=== PATIENT | male | born 1950 | race Caucasian/White ===

== ENCOUNTER 2020-06-26 20:52 | Emergency (ER) | payer MEDICARE, OTHER ==
[~2020-06-26] VITALS: Ht 175.3 cm; Wt 86.2 kg
--- OUTSIDE RECORDS SUMMARY | ~2020-06-26 | XMS | Encounter Summary ---
Demographics + + + | Address | [address] | | | [place] [address] | + + + | Home Phone | | + + + | Preferred Language | Unknown | + + + | Marital Status | | + + + | Muslim Affiliation | Unknown | + + + | Race | Unknown | + + + | Ethnic Group | Unknown | + + + Author + + + | Author | [facility] | | | and [place] | + + + | Organization | [facility] | | | and [place] | + + + | Address | Unknown | + + + | Phone | Unavailable | + + + Support + + + + + | Name | Relationship | Address | Phone | + + + + + | Mark Escobar | [place] | [address] | | | | | [place] | | | | | [address] | | + + + + + Care Team Providers + +------+ + | Care Tip Finisher Name | Role | Phone | + +------+ + | Maria C Cordova MD | PCP | | + +------+ + Reason for Visit + +--------+ + | Reason | Onset | Comments | | | Date | | + +--------+ + | Follow-up | 04/22/ | Needs 3 month f/u visit | | | 2020 | | + +--------+ + Encounter Details +--------+ + + + + | Date | Type | Department | Care Team | Description | +--------+ + + + + | 04/22/ | Telephone | [facility] | Yunier Maria | Follow-up (Needs 3 | | 2019 | | GASTROENTEROLOGY | MD Dougie [address] | month f/u visit) | | | | [address] | [place], [place] | | | | | [place], [place] | [address] | | | | | [address] | | | | | | [phone] | | | +--------+ + + + + Social History + +-------+ +--------+------+ | Tobacco Use | Types | Packs/Day | Years | Date | | | | | Used | | + +-------+ +--------+------+ | Never Smoker | | | | | + +-------+ +--------+------+ + +---+---+---+ | Smokeless Tobacco: | | | | | Never Used | | | | + +---+---+---+ + + +---------+ + | Alcohol Use | Drinks/Week | oz/Week | Comments | + + +---------+ + | Yes | 14 Cans of beer 0 | 14.0 | | | | Standard drinks or | | | | | equivalent | | | + + +---------+ + + + + | Sex Assigned at | Date Recorded | | | | + + + | Not on file | | + + + documented as of this encounter Miscellaneous Notes Telephone Encounter - Gus Jacob Dermatologist And Dermatopathologist - 04/22/2020 4:[address] Maria 04/20/2020, to f/u in 3 moths with SENIOR CARE MANAGER. Called patient, he states he would prefer to hold off on scheduling at this time. He state s Dr. Maria and him discussed that a f/u appt might not be needed. Patient will call us if wants to schedule at later time. documented in this encounter Plan of Treatment +--------+ + + + + | Date | Type | Specialty | Care Team | Description | +--------+ + + + + | 08/09/ | Office | Cardiology | Joseph Claire | | 2019 | Visit | | [address] | | | | | | [address] | | | | | | [place] [address] | | | | | | [phone] | | | | | | | | +--------+ + + + + | 08/09/ | Procedure | Cardiology | | | 2019 | visit | | | | +--------+ + + + + | 10/19/ | Office | Cardiology | Trevor Godinez, | | | 2019 | Visit | | MD [address] | | | | | | [place] | | | | | | [address] | | | | | | | | +--------+ + + + + documented as of this encounter Visit Diagnoses Not on filedocumented in this encounter"
--- OUTSIDE RECORDS SUMMARY | ~2020-06-26 | XMS | Encounter Summary ---
Demographics + + + | Address | [address] | | | [place] [address] | + + + | Home Phone | | + + + | Preferred Language | Unknown | + + + | Marital Status | | + + + | Evangelical Affiliation | Unknown | + + + | Race | Unknown | + + + | Ethnic Group | Other Race | + + + Author + + + | Author | [facility] | + + + | Organization | [facility] | + + + | Address | Unknown | + + + | Phone | Unavailable | + + + Care Team Providers + +------+ + | Care Aerospace Mechanic Name | Role | Phone | + +------+ + PCP | Unavailable | + +------+ + Encounter Details +--------+ + + + + | Date | Type | Department | Care Team | Description | +--------+ + + + + | 03/10/ | Results | [facility] | Jessica, | | | 2010 | Only | Department | MD Messi Thomason | | | | | | Oscar Kwan | | | | | | [address] | | | | | | [address] | | | | | | [place], [place] | | | | | | [address] | | | | | | | | +--------+ + + + + Social History + +-------+ +--------+------+ | Tobacco Use | Types | Packs/Day | Years | Date | | | | | Used | | + +-------+ +--------+------+ | Never Assessed | | | | | + +-------+ +--------+------+ + + + | Sex Assigned at | Date Recorded | | | | + + + | Not on file | | + + + + + + + | Job Start Date | Occupation | Industry | + + + + | Not on file | Not on file | Not on file | + + + + + + + + | Travel History | Travel Start | Travel End | + + + + + + | No recent travel history available. | + + documented as of this encounter Plan of Treatment Not on filedocumented as of this encounter Procedures + +--------+ + + + | Procedure Name | Priori | Date/Time | Associated Diagnosis | Comments | | | ty | | | | + +--------+ + + + | DERMATOPATHOLOGY(WET | Routin | 03/10/2011 | | Results for this | | [facility]) | e | | | procedure are in the | | | | | | results section. | + +--------+ + + + documented in this encounter Results DERMATOPATHOLOGY(WET [facility]) (03/10/2011) + + + + + + | Component | Value | Ref Range | Performed | Pathologist | | | | | At | Signature | + + + + + + | DERMATOPATH | SOURCE OF SPECIMEN:A | | [facility] | | | OLOGY(WET | FIRST TISSUE LEVEL IV | | DERMATOPATH | | | [facility]) | [address] CLIN[facility] | | OLOGY | | | | DESCRIPTION:Punch, 4 mm, | | | | | | lt. mid back; R/O | | | | | | atypia/ malignancy. | | | | | | GROSS DESCRIPTION:Lt. | | | | | | mid back. The | | | | | | specimen is received in | | | | | | formalin, labeled back | | | | | | with thepatient's name | | | | | | and consists of a pale | | | | | | fofana and brown punch | | | | | | biopsy, measuring0.4 x | | | | | | 0.4 cm, which is | | | | | | bisected and is | | | | | | submitted entirely in | | | | | | one cassette. | | | | | | MICROSCOPIC | | | | | | DESCRIPTION:There is | | | | | | epidermal hyperplasia | | | | | | with horn pseudocysts, | | | | | | interweaving of therete | | | | | | and nuclei of uniform | | | | | | size and shape. 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 NOTE: | | | | | | There is no definitive | | | | | | evidence of a | | | | | | melanocytic neoplasm in | | | | | | thesesections. | | | | | | VK/CRW:emr/02/20 | | | | | | Case reviewed | | | | | | by:Raman Odonnell, | | | | | | M.Faustino, Dermatopathology | | | | | | Fellow Sarah Kerr | | | | | | Jr. Kilpatrick M.D., | | | | | | Dermatopathologist | | | | | | My electronic signature | | | | | | indicates that I have | | | | | | personally reviewed | | | | | | alldiagnostic slides, | | | | | | the gross and/or | | | | | | microscopic portion of | | | | | | thisreport and | | | | | | formulated the final | | | | | | diagnosis. | | | | | | Rendering Diagnostician: | | | | | | Jordan Kilpatrick Jr., | | | | | | | | | | | | Darryn | | | | | | rehana Izquierdo 03/16/2011 | | | | | | 1:46PM | | | | + + + + + + + + | Specimen | + + | | + + + + + + + | Performing | Address | City/State/Zipcode | Phone Number | | Organization | | | | + + + + + | [facility] | [address] | [place] [address] | | | DERMATKESHA | [address] | | | + + + + + | [facility] | [address] | [place] [address] | | | DERMATOPATHOLOGY | [address] | | | + + + + + documented in this encounter Visit Diagnoses Not on filedocumented in this encounter"
--- OUTSIDE RECORDS SUMMARY | ~2020-06-26 | XMS | Encounter Summary ---
Demographics + + + | Address | [address] | | | [place] [address] | + + + | Home Phone | | + + + | Preferred Language | Unknown | + + + | Marital Status | | + + + | Faith Affiliation | Unknown | + + + | Race | Unknown | + + + | Ethnic Group | Unknown | + + + Author + + + | Author | [facility] | | | and [place] | + + + | Organization | [facility] | | | and [place] | + + + | Address | Unknown | + + + | Phone | Unavailable | + + + Support + + + + + | Name | Relationship | Address | Phone | + + + + + | Mark Escobar | [place] | [address] | | | | | [place] | | | | | [address] | | + + + + + Care Team Providers + +------+ + | Care Welder Production Line Arc Name | Role | Phone | + +------+ + | Maria C Cordova MD | PCP | | + +------+ + Reason for Visit + +--------+ + | Reason | Onset | Comments | | | Date | | + +--------+ + | Pacemaker Problem | 06/20/ | | | | 2020 | | + +--------+ + Encounter Details +--------+ + + + + | Date | Type | Department | Care Team | Description | +--------+ + + + + | 06/20/ | Telephone | [facility] | Franko Savage, | Pacemaker Problem | | 2019 | | CARDIOLOGY [place] | [address] | | | | | [address] | [facility], | | | | | [place], [place] | [place] [address] | | | | | [address] | [phone] | | | | | [phone] | | | +--------+ + + + [...] + + +---------+ + | Yes | 0 Standard drinks | 14.0 | | | | or equivalent 14 | | | | | Cans of beer | | | + + +---------+ + + + + | Sex Assigned at | Date Recorded | | | | + + + | Not on file | | + + + documented as of this encounter Miscellaneous Notes Telephone Encounter - Franko Savage MD - 06/20/2020 5:40 PM PDTI called and talked to this patient in detail over the phone regarding the procedural risks and benefits. All ques tions were answered. He has chlorhexidine and will take a shower tonight as directed montserrat gaviria. He will present tomorrow at 1130, n.p.o. after midnight tonight. He is active and [place] without difficulty. He has had prior stress test which [address] been normal. His dad suddenly of what sounds like a cardiac arrest at age 68.Elect ronically signed by Franko Savage MD at 06/20/2020 5:42 PM PDTdocumented in this encount er Plan of Treatment +--------+ + + + + | Date | Type | Specialty | Care Team | Description | +--------+ + + + + | 08/09/ | Office | Cardiology | Joseph Claire | | 2019 | Visit | | [address] | | | | | | [address] | | | | | | [place] [address] | | | | | | [phone] | | | | | | | [...] [place] | | | | | | [address] | | | | | | | | +--------+ + + + + documented as of this encounter Visit Diagnoses Not on filedocumented in this encounter"
--- OUTSIDE RECORDS SUMMARY | ~2020-06-26 | XMS | Encounter Summary ---
Demographics + + + | Address | [address] | | | [place] [address] | + + + | Home Phone | | + + + | Preferred Language | Unknown | + + + | Marital Status | | + + + | Rastafarian Affiliation | Unknown | + + + | Race | Unknown | + + + | Ethnic Group | Other Race | + + + Author + + + | Author | [facility] | + + + | Organization | [facility] | + + + | Address | Unknown | + + + | Phone | Unavailable | + + + Care Team Providers + +------+ + | Care Sticker Operator Name | Role | Phone | + [...] [address] | | | | | | [place], [place] | | | | | | [id number] | | | | | | | [...] | DERMATOPATH | | | MNT) | [address] CLINICAL | | OLOGY | | | [...] [facility] | [address] | [place] [address] | | | DERMAT[place]HA | [address] | | | + + + + + | [facility] | [address] | [place] [address] | | | DERMATOPATHOLOGY | [address] | | | + + + + + documented in this encounter Visit Diagnoses Not on filedocumented in this encounter"
--- OUTSIDE RECORDS SUMMARY | ~2020-06-26 | XMS | Encounter Summary ---
Demographics + + + | Address | [address] | | | [place] [address] | + + + | Home Phone | | + + + | Preferred Language | Unknown | + + + | Marital Status | | + + + | Muslim Affiliation | Unknown | + + + | Race | Unknown | + + + | Ethnic Group | Unknown | + + + Author + + + | Author | [facility] | | | and [place] | + + + | Organization | [facility] | | | and [place] | + + + | Address | Unknown | + + + | Phone | Unavailable | + + + Support + + + + + | Name | Relationship | Address | Phone | + + + + + | Mark Escobar | [place] | [address] | | | | | [place] | | | | | [address] | | + + + + + Care Team Providers + +------+ + | Care Payroll Associate Name | Role | Phone | + +------+ + | Tello Rodarte MD | PCP | | + +------+ + Reason for Visit +--------+--------+ + | Reason | Onset | Comments | | | Date | | +--------+--------+ + | Pain | 01/12/ | Increase in pain | | | 2016 | | +--------+--------+ + Encounter Details +--------+ + + + + | Date | Type | Department | Care Team | Description | +--------+ + + + + | 01/12/ | Telephone | [facility] | Geovani Hendrickson MD | Pain (Increase in | | 2017 | | NEUROSURGERY [address] | [address] | pain) | | | | [address] | [place] [address] | | | | | [place] | [phone] | | | | | [address] | | | | | | [phone] | | | +--------+ + + + [...] | Yes | 0 Standard drinks | 0.0 | Frequently (more | | | or equivalent | | than twice per week) | + + +---------+ + + + + | Sex Assigned at | Date Recorded | | | | + + + | Not on file | | + + + documented as of this encounter Miscellaneous Notes Telephone Encounter - Rimma Payton - 01/16/2017 3:46 PM PSTPatient's called stat ed they will be seeing their Provider for re-evaluation. elephone Encounter - Lisa Jim RN - 01/16/2017 11:3 1 AM PSTLeft detailed message advising patient and spouse per note below and requested retur n call to confirm if patient plans to see PCP for re-evaluation or if he would like to sched ule an appointment with one of our PA's (Wolfgang or Tyshawn). elephone Encounter - Joseph Ling PA-C - 01/16 10:03 AM PSTThe patient will need to have a repeat evaluation. He may need to have a repeat MRI. I would recommend that he either begin this process of reevaluation through his primary care provider or our office, it may be quicker to be seen by his primary care provi gary but we would also be happy to see him. Either Tyshawn or Ej can see this patient in follow up elephone En counter - Abby Ybarra RN - 01/12/2017 9:24 AM PSTPost-op patient: "No Type of Procedure: N/A Date of Procedure: N/A Next Office Visit: None Reason for call: Increase in pain. Patient's spouse states that he has "reagrivated his [facility]. Now it is so bad, he can barely stand" Would like to make an appointment for follow up. Type of pain: ConstantSharp stabbing Location of Pain: Low back and right leg Pain Level: 9/10. Unable to stand. New Pain: No. When did pain start to increase or change: A week ago Worse with activity: Yes. Radiates into buttock and or legs: Yes. Side: Right. Sudden onset of loss of bowel/bladder control: No. Sudden onset of Lower or Upper extremity weakness: No Current intake of pain medication/or muscle relaxants: No Please advise further. documented in this en counter Plan of Treatment +--------+ + + + + | Date | Type | Specialty | Care Team | Description | +--------+ + + + + | 08/09/ | Office | Cardiology | Joseph Claire | | | 2019 | Visit | | [address] | | | | | | [address] | | | | | | [place] [address] | | | | | | [phone] | | | | | | | | +--------+ + + + + | 08/09/ | Procedure | Cardiology | | | | 2019 | visit | | | | +--------+ + + + + | 10/19/ | Office | Cardiology | Trevor Godinez, | | | 2019 | Visit | | MD [address] | | | | | | [place] | | | | | | [address] | | | | | | | | +--------+ + + + + documented as of this encounter Visit Diagnoses Not on filedocumented in this encounter
--- OUTSIDE RECORDS SUMMARY | ~2020-06-26 | XMS | Encounter Summary ---
Demographics + + + | Address | [address] | | | [place] [address] | + + + | Home Phone | | + + + | Preferred Language | Unknown | + + + | Marital Status | | + + + | Roman Catholic Affiliation | Unknown | + + + | Race | Unknown | + + + | Ethnic Group | Unknown | + + + Author + + + | Author | [facility] | | | and [place] | + + + | Organization | [facility] | | | and [place] | + + + | Address | Unknown | + + + | Phone | Unavailable | + + + Support + + + + + | Name | Relationship | Address | Phone | + + + + + | Mark Escobar | HANY | [address] | | | | | [place] | | | | | [address] | | + + + + + Care Team Providers + +------+ + | Care Asset Analyst Name | Role | Phone | + +------+ + | Maria C Cordova MD | PCP | | + +------+ + Reason for Visit + + + | Reason | Comments | + + + | Dysphagia | | + + + Evaluate & Treat (Routine) +--------+--------+ + + + + | Status | Reason | Specialty | Diagnoses / | Referred By | Referred To | | | | | Procedures | Contact | Contact | +--------+--------+ + + + + | Closed | | Gastroenterol | Diagnoses | Cordova, | Crow, | | | | oganil | Dysphagia, | Maria C Jacobson MD | Yunier Constantino, | | | | | unspecified | [address] | [address] | | | | | | [address] | [address] | | | | | | [place], | [place], [place] | | | | | | [place] [address] | [address] Phone: | | | | | | Phone: | [phone] | | | | | | [phone] | Fax: | | | | | | Fax: | [phone] | | | | | | [phone] | | +--------+--------+ + + + + Encounter Details +--------+ + + + + | Date | Type | Department | Care Team | Description | +--------+ + + + + | 04/20/ | Virtual | [facility] | Yunier Maria | Vasovagal syncope | | 2020 | Office | GASTROENTEROLOGY | MD Douige [address] | (Primary Dx); Other | | | Visit | [address] | [address]VD [place], [place] | dysphagia; Sensation | | | | [place], [place] | [address] | of chest pressure; | | | | [address] | | Gastroesophageal | | | | [phone] | | reflux disease, | | | | | | esophagitis presence | | | | | | not specified; | | | | | | Weight loss | +--------+ + + + + Social [...] + + documented as of this encounter Progress Notes Yunier Maria MD - 04/20/2020 4:10 PM PDT [facility] Gastroenterology Virtual Visit New Patient This exam was initially conducted via a secure 256-bit AES encrypted bidirectional video se ssion. Service was provided [id number] with the patient via interactive videoconferencing Coding will be based on Medical Decision Making. You have chosen to receive care through the use of telemedicine. Telemedicine enables [facility] care providers at different locations to provide safe, effective and convenient care throu gh the use of technology. As with any health care service, there are risks associated with t he use of telemedicine, including equipment failure, poor image resolution and information s ecurity issues. Do you understand the risks and benefits of telemedicine as I have explained them to you? " Yes" Have your questions regarding telemedicine been answered? "Yes" Participant is currently at home Do you consent to the use of telemedicine in your medical care today? Yes. Last question, I need to confirm where are you physically located right now? [place], [place] Answer: Patient confirms they are located in a state where I, Yunier Maria MD am licens ed. Subjective: Chief Complaint Patient presents with Dysphagia Patient ID: Thomas Escobar is a 70 y.o. male. HPI New patient evaluation via virtual visit regarding symptom described as syncope occurring w hile eating. Patient actually describes 4 episodes. First episode he experienced was about 1-1/2 years ago while sitting on a plane where he had an episode of unconsciousness noted b y his . Individuals on the plane had to assist with him. Apparently blood pressure was suspected to have been running low. Claims he thinks that he had not been eating or drinki ng much at that time. There was no prolonged confusion described by his . This episode did not occur with any oral ingestion. He subsequently had 2 other episodes which occurred a few months ago and were in time. One was stopping to eat lunch while driving b [employer] from [place] where he ate a hamburger and suddenly had what he refers to as syncope. H e recalls having a fullness or pressure in his chest though not really food becoming stuck. He remembers his suddenly in his face asking him if he was okay and whether to call am anna. This occurred while sitting and he did not fall on the table or fall out of the ch air. Does not sound like his head even fell to one side. He does not recall the episode an d just his asking him how he was. Second episode was very similar and occurred at home when eating. He had one last episode occurring at a later time not time associated to eati ng but he had a pressure-like sensation again occurring alone and he slowed down his breathi ng and it seemed to subside without any loss of consciousness. His present at the visi t as well. There was no prolonged disorientation, difficulty with speech or drooling or any neurologic symptoms such as weakness described. None of these episodes did he fall. 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 He does not normally have any trouble with food sticking with swall owing. He has been on omeprazole for quite a number years for reflux. Really no significan t reflux breakthrough symptoms. Not been having any abdominal pain. Typically does not hav e any difficulty with eating. He underwent video esophagram in his local area which showed a tiny hiatal hernia and just minimal reflux otherwise nothing of concern and normal motilit y was described. Specifically no diverticulum evident. He had echocardiogram and cardiac m onitor which were unrevealing. 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 As an aside he also comments about 30 to 40 pound weight loss over the last 3 to 4 years wh ich was unintentional. Has not experienced any bowel habit changes or blood in stool. Last underwent colonoscopy about 15 years ago which reportedly was unremarkable. No other speci fic symptoms. Patient's medications, allergies, past medical, surgical, social and family histories were obtained and reviewed as appropriate. Allergies: Allergies Allergen Reactions Lisinopril Cough Medications: Current Outpatient Medications Medication Sig Dispense Refill amLODIPine (NORVASC) 5 mg tablet Take 5 mg by mouth Daily. atenolol (TENORMIN) 25 mg tablet Take 1 tablet by mouth Daily. atorvaSTATin (LIPITOR) 40 mg tablet Take 40 mg by mouth nightly. levothyroxine (SYNTHROID, LEVOTHROID) 50 mcg tablet Take 50 mcg by mouth every morning (before breakfast). losartan (COZAAR) 100 MG tablet Take 100 mg by mouth Daily. omeprazole (PRILOSEC) 20 mg capsule Take 20 mg by mouth every morning (before breakfast ). tadalafil (CIALIS) 20 MG tablet Take 20 mg by mouth as needed for Erectile Dysfunction. No current facility-administered medications for this visit. Past Medical History: Diagnosis Date Anxiety and depression Benign localized prostatic hyperplasia with lower urinary tract symptoms (LUTS) Cholelithiasis Colon, diverticulosis Depression with anxiety Disorder of thyroid Dyspepsia Esophageal reflux Essential hypertension HLD (hyperlipidemia) Hyperlipidemia Hypertension Hypothyroidism, iatrogenic Impaired fasting glucose Low back pain Migraine headache Nephrolithiasis Osteoarthrosis involving lower leg Presbycusis Past Surgical History: Procedure Laterality Date CHOLECYSTECTOMY 01/23/[address] Partida in [place], [place] KNEE JOINT REPLACEMENT Left 06/2007 LITHOTRIPSY 1994 OTHER SURGICAL HISTORY LITHOTRIPSY THYROIDECTOMY, PARTIAL Right benign THYROIDECTOMY, PARTIAL TONSILLECTOMY AND ADENOIDECTOMY TOTAL KNEE ARTHROPLASTY Left 2006 UPPER GASTROINTESTINAL ENDOSCOPY 2014? possibly Dr. Gabby Bueno in [place], [place] Family History Problem Relation Age of Onset Heart disease Father Heart disease Mother 55 CABG Cancer Mother No known problems Paternal Grandfather No known problems Paternal Grandmother No known problems Maternal Grandfather No known problems Maternal Grandmother Heart attack Brother 49 Cancer Sister 40 Cancer Sister 40 No known problems Child Chronic infections Sister Heart disease Brother 52 PCI Colon cancer Neg Hx Colon polyps Neg Hx Social History Socioeconomic History Marital status: Spouse name: Not on file Number of children: 4 Years of education: 19 Highest education level: Not on file Occupational History Occupation: [employer] Social Needs Financial resource strain: Not on file Food insecurity Worry: Not on file Inability: Not on file Transportation needs Medical: Not on file Non-medical: Not on file Tobacco Use Smoking status: Never Smoker Smokeless tobacco: Never Used Substance and Sexual Activity Alcohol use: Yes Alcohol/week: 14.0 standard drinks Types: 14 Cans of beer per week Drug use: Yes Types: Marijuana Comment: Edibles for sleep Sexual activity: Yes Lifestyle Physical activity Days per week: Not on file Minutes per session: Not on file Stress: Not on file Relationships Social connections Talks on phone: Not on file Gets together: Not on file Attends christian service: Not on file Active member of club or organization: Not on file Attends meetings of clubs or organizations: Not on file Relationship status: Not on file Intimate partner violence Fear of current or ex partner: Not on file Emotionally abused: Not on file Physically abused: Not on file Forced sexual activity: Not on file Other Topics Concern Not on file Social History Narrative Not on file Social History Tobacco Use Smoking Status Never Smoker Smokeless Tobacco Never Used Social History Substance and Sexual Activity Alcohol Use Yes Alcohol/week: 14.0 standard drinks Types: 14 Cans of beer per week Social History Substance and Sexual Activity Drug Use Yes Types: Marijuana Comment: Edibles for sleep Social History Substance and Sexual Activity Sexual Activity Yes Review of Systems Constitutional: Negative for fatigue and unexpected weight change. Respiratory: Negative for cough, choking, chest tightness, shortness of breath and wheezing . Cardiovascular: Negative for chest pain and palpitations. Gastrointestinal: Positive for constipation and diarrhea (took stool softener). Negative fo r abdominal distention, abdominal pain, anal bleeding, blood in stool, nausea, rectal pain a nd vomiting. C/o occ heartburn Objective: There were no vitals taken for this visit. Physical Exam Telemedicine Virtual Visit General Cooperative Alert Well groomed Well appearing Resp Respiratory effort appears normal Neuro Oriented x3 Alert Psych Normal speech Normal Cognition Thought content normal Normal judgement Labs: In the referral notes BMP normal from February 2020 no other labs available Diagnostic imaging: Esophagram as per HPI found in the referral notes Data Review: Reviewed recent pertinent notes in electronic chart Assessment and Plan: ICD-10-CM ICD-9-CM 1. Vasovagal syncope R55 780.2 2. Other dysphagia R13.19 787.29 3. Sensation of chest pressure R07.89 786.59 4. Gastroesophageal reflux disease, esophagitis presence not specified K21.9 530.81 5. Weight loss R63.4 783.21 His symptoms as described today very vague and nonspecific. Really describing more a lapse of awareness of brief seconds than true syncope since he never fell or apparently even had his head fall over while sitting. Not true dysphagia described and evaluation for esophagea l spasm would be low yield I think in this setting. Clearly may have had a vasovagal phenom enon though he is less clear on presyncopal type symptoms. TIA would be a concern but there really was no prolonged symptoms. Atypical seizure likewise unlikely with no residual or d isorientation. He is being evaluated by cardiology for dysrhythmia or prolonged rhythm bloc k which could cause transient symptoms. Recommendations 1. Continue with cardiology evaluation as doing. 2. Suggested starting low-dose aspirin on the off chance this could be atypical TIA. 3. If develops any other neurologic type symptoms consider neurology evaluation and/or hea d imaging. 4. Could consider EGD and esophageal manometry at some point but for now we will hold off until we see how symptoms do over the next few months. Patient will call if symptoms worsen . 5. In regards to the unexplained weight loss over a prolonged period of time less specific . May want to consider colonoscopy since last exam 15 years ago. 6. Follow-up visit in about 3 months. Maryana Maria IV, M.D. [facility] Gastroenterology 04/20/2020 This note was dictated using [employer] voice recognition software. Document was reviewed at ti me of dictation but [id number] errors may be present. Please call with any questions or c larifications. documented in thi s encounter Plan of Treatment +--------+ + + + + | Date | Type | Specialty | Care Team | Description | +--------+ + + + + | 08/09/ | Office | Cardiology | Joseph Claire | | 2019 | Visit | | MIRELLA [address] | | | | | [address] | | | | | | [place] [address] | | | | | | [phone] | | | | | | | | +--------+ + + + + | 08/09/ | Procedure | Cardiology | | | 2019 | visit | | | | +--------+ + + + + | 10/19/ | Office | Cardiology | Trevor Godinez, | | | 2020 | Visit | | MD [address] | | | | | | [facility] | | | | | | [address] | | | | | | | | +--------+ + + + + documented as of this encounter Visit Diagnoses + + | Diagnosis | + + | Vasovagal syncope - Primary Syncope and collapse | + + | Other dysphagia | + + | Sensation of chest pressure | + + | Gastroesophageal reflux disease, esophagitis presence not specified | + + | Weight loss Loss of weight | + + documented in this encounter
--- OUTSIDE RECORDS SUMMARY | ~2020-06-26 | XMS | Encounter Summary ---
Demographics + + + | Address | [address] | | | [place] [address] | + + + | Home Phone | | + + + | Preferred Language | Unknown | + + + | Marital Status | | + + + | Hindu Affiliation | Unknown | + + + | Race | Unknown | + + + | Ethnic Group | Unknown | + + + Author + + + | Author | [facility] | | | and [place] | + + + | Organization | [facility] | | | and [place] | + + + | Address | Unknown | + + + | Phone | Unavailable | + + + Support + + + + + | Name | Relationship | Address | Phone | + + + + + | Mark Escobar | [place] | [address] | | | | | [place] | | | | | [address] | | + + + + + Care Team Providers + +------+ + | Care Trauma Nurse Name | Role | Phone | + +------+ + | Maria C Cordova MD | PCP | | + +------+ + Reason for Visit +--------+ + | Reason | Comments | +--------+ + | Other | urgent report | +--------+ + Encounter Details +--------+ + + + + | Date | Type | Department | Care Team | Description | +--------+ + + + + | 04/26/ | Documentati | [facility] | Linda Delarosa Eliza, | Other (urgent | | 2020 | on | CARDIOLOGY [place] | Technologist | report) | | | | [address] | | | | | | [place] | | | | | | [address] | | | | | | [phone] | | | +--------+ + + + [...] documented as of this encounter Progress Notes Linda Delarosa, Technologist - 04/26/2020 7:52 AM PDTReceived urgent report 04/26/20 Pt had a urgent report 04/25/20 at 18:33 63 BPM activity none for possible Pause 3.4 s > 3 s 30 day monitor was placed 04/22/20 Medication: None Called PT Left vm Will continue to monitor Please see attachment Associated attestation - Trevor Godinez MD - 04/26/2020 12:41 PM PDTReviewed patient wi ll be instructed to stop atenolol. Will continue monitoring. documented in this encounter Plan of Treatment [...] | | | | | [place] [address] | | | | | | [phone] | | | | | | | | +--------+ + + + + | 08/09/ | Procedure | Cardiology | | | | 2019 | visit | | | | +--------+ + + + + | 10/19/ | Office | Cardiology | Trevor Godinez, | | | 2019 | Visit | | [address] | | | | | | [place] | | | | | | [address] | | | | | | | | +--------+ + + + + documented as of this encounter Visit Diagnoses Not on filedocumented in this encounter"
--- OUTSIDE RECORDS SUMMARY | ~2020-06-26 | XMS | Encounter Summary ---
Demographics + + + | Address | [address] | | | [place] [address] | + + + | Home Phone | | + + + | Preferred Language | Unknown | + + + | Marital Status | | + + + | Yazidi Affiliation | Unknown | + + + | Race | Unknown | + + + | Ethnic Group | Unknown | + + + Author + + + | Author | [facility] | | | and [place] | + + + | Organization | [facility] | | | and [place] | + + + | Address | Unknown | + + + | Phone | Unavailable | + + + Support + + + + + | Name | Relationship | Address | Phone | + + + + + | Mark Escobar | [place] | [address] | | | | | [place] | | | | | [address] | | + + + + + Care Team Providers + +------+ + | Care Land Leases And Rentals Manager Name | Role | Phone | + +------+ + | Maria C Cordova MD | PCP | | + +------+ + Reason for Visit +--------+--------+ + | Reason | Onset | Comments | | | Date | | +--------+--------+ + | Pre-Op | 06/17/ | | | | 2020 | | +--------+--------+ + Encounter Details +--------+ + + + + | Date | Type | Department | Care Team | Description | +--------+ + + + + | 06/17/ | Telephone | [facility] | Franko Savage, | Pre-Op | | 2020 | | CENTER [facility] OP | [address] | | | | | [address] | [place], | | | | | [place], [place] | [place] [address] | | | | | [address] | [phone] | | | | | [phone] | | | +--------+ + + + [...] this encounter Miscellaneous Notes Telephone Encounter - Carie Peng - 06/17/2020 3:24 PM PDTSpoke with patient regarding pre op instructions. Asked all COVID-19 scheduling questions. All answers were no. Electronic ally signed by Carie Peng at 06/17/2020 3:26 PM PDTdocumented in this encounter Plan of Treatment +--------+ [...] | | | | | [place] [address] | | | | | | [phone] | | | | | | | [...] [place] | | | | | | [address] | | | | | | | | +--------+ + + + + documented as of this encounter Visit Diagnoses Not on filedocumented in this encounter"
--- OUTSIDE RECORDS SUMMARY | ~2020-06-26 | XMS | Encounter Summary ---
Demographics + + + | Address | [address] | | | [place] [address] | + + + | Home Phone | | + + + | Preferred Language | Unknown | + + + | Marital Status | | + + + | Druze Affiliation | Unknown | + + + | Race | Unknown | + + + | Ethnic Group | Unknown | + + + Author + + + | Author | [facility] | | | and [place] | + + + | Organization | [facility] | | | and [place] | + + + | Address | Unknown | + + + | Phone | Unavailable | + + + Support + + + + + | Name | Relationship | Address | Phone | + + + + + | Mark Escobar | H[place] | [address] | | | | | [place] | | | | | [address] | | + + + + + Care Team Providers + +------+ + | Care Glue Jointer Operator Name | Role | Phone | + +------+ + | Tello Rodarte MD | PCP | | + +------+ + Reason for Visit +--------+--------+ + | Reason | Onset | Comments | | | Date | | +--------+--------+ + | Other | 04/12/ | scheduling | | | 2020 | | +--------+--------+ + Encounter Details +--------+ + + + + | Date | Type | Department | Care Team | Description | +--------+ + + + + | 04/12/ | Telephone | [facility] | Trevor Godinez, | Other (scheduling) | | 2020 | | CARDIOLOGY [place] | [address] | | | | | [address] | [place], [place] | | | | | [place], [place] | [address] | | | | | [address] | | | | | | [phone] | | | +--------+ + + + [...] | 0 Standard drinks | 0.0 | Alcoholic | | | or equivalent | | Drinks/day: socially | + + +---------+ + + + + | Sex Assigned at | Date Recorded | | | | + + + | Not on file | | + + + documented as of this encounter Miscellaneous Notes Telephone Encounter - Chanell Degroot - 04/12/2020 11:42 AM PDTProactive screening for u pcoming office visit to help ensure the clinic environment remains a safe place to receive c are. 1. Patient reports the following symptoms and/or exposure on the epidemic risk screen: ? Fever greater than 100.4 F?: no ? New onset (within the last 14 days) cough?: no ? New onset (within the last 14 days) shortness of breath?: no ? New onset (within the last 14 days) loss of taste or smell?: no ? Close contact with someone who has been diagnosed with COVID-19?: no The patient reported no symptoms or exposure and proceeded with proactive screening process . 2. Have you or someone you are in close contact with been tested for COVID-19?: No. Okay to see patient in clinic per scheduling guidelines, proceeded to question #3 3. Does the patient have MyChart Access?: Yes. Encouraged use of the E-Check In feature. 4. Is the patient allowed a visitor per policy?: No. Please be aware that you will be asked these same questions when you arrive at the clinic. If you have any changes in your symptoms between now and your visit, please call us so we c an get you scheduled for an alternative visit before you arrive at the clinic. For your safety and the safety of others, we ask that if you are being seen in person at on e of our clinics you arrive wearing a mask. Hand washing is canseco to keeping our clinic a safe place to receive care. While you are in ou r clinics you will be asked to perform hand washing at different intervals throughout your v isit. While you are in the clinic 6ft distancing is required, please ensure you look for the 6ft floor markers and adhere to distancing. Visitor restrictions remain in place following CDC guidance. Only minimal exceptions will be allowed. If you arrive with a visitor they may be asked to wait in the car during your v isit. documented in this enc ounter Plan of Treatment +--------+ + + + + | Date | Type | Specialty | Care Team | Description | +--------+ + + + + | 08/09/ | Office | Cardiology | Joseph Claire | | | 2019 | Visit | | MIRELLA [address] | | | | | | [address] | | | | | | [place] [address] | | | | | | [phone] | | | | | | | [...] [place] | | | | | | [address] | | | | | | | | +--------+ + + + + documented as of this encounter Visit Diagnoses Not on filedocumented in this encounter"
--- OUTSIDE RECORDS SUMMARY | ~2020-06-26 | XMS | Encounter Summary ---
Demographics + + + | Address | [address] | | | [place] [address] | + + + | Home Phone | | + + + | Preferred Language | Unknown | + + + | Marital Status | | + + + | Confucianist Affiliation | Unknown | + + + | Race | Unknown | + + + | Ethnic Group | Unknown | + + + Author + + + | Author | [facility] | | | and [place] | + + + | Organization | [facility] | | | and [place] | + + + | Address | Unknown | + + + | Phone | Unavailable | + + + Support + + + + + | Name | Relationship | Address | Phone | + + + + + | Mark Escobar | HANY | [address] | | | | | [place] | | | | | [address] | | + + + + + Care Team Providers + +------+ + | Care Mold Maker Helper Name | Role | Phone | + +------+ + | Tello Rodarte MD | PCP | | + +------+ + Encounter Details +--------+ + + + + | Date | Type | Department | Care Team | Description | +--------+ + + + + | 01/19/ | Orders Only | [facility] | Geovani Hendrickson MD | Back pain, | | 2016 | | NEUROSURGERY [address] | [address] | unspecified back | | | | [address] | [place] [address] | pain laterality, | | | | [place], [place] | [phone] | unspecified location | | | | [address] | | (Primary Dx) | | | | [phone] | | | +--------+ + + + [...] as of this encounter Plan of Treatment +--------+ + + + + | Date | Type | Specialty | Care Team | Description | +--------+ + + + + | 08/09/ | Office | Cardiology | Joseph Claire | | | 2020 | Visit | | [address]LL[address] | | | | | | [address] | | | | | | [place] [address] | | | | | | [phone] | | | | | | | | +--------+ + + + + | 08/09/ | Procedure | Cardiology | | | | 2019 | visit | | | | +--------+ + + + + | 10/19/ | Office | Cardiology | Trevor Godinez, | | | 2020 | Visit | | MD [address] | | | | | | [place] | | | | | | [address] | | | | | | | | +--------+ + + + + documented as of this encounter Results XR Lumbar Spine 4 + Vw (04/20/2016 8:57 AM PDT) + + | Specimen | + + | | + + + + + | Narrative | Performed At | + + + | EXAM: XR LUMBAR SPINE 4 + VW dated 04/20/2016 8:29 AM HISTORY:Back | [facility] | | Pain COMPARISON: Outside MRI dated December 01, 2015. | [facility] | | FINDINGS:Mild leftward curvature. These may be positional. There | [facility] | | are 5 nonrib-bearing lumbar-type vertebral bodies. In the neutral | - IMAGING | | position there is slight retrolisthesis of L4 and anterolisthesis of | | | L5. No significant disc space narrowing. There are marginal | | | osteophytes through the thoracolumbar junction. There are no | | | compression deformities. There is normal mineralization. There is | | | facet arthrosis at L4-L5 and L5-S1. No abnormal translation with | | | flexion or extension. IMPRESSION - Diffuse mild spondylosis. | | | Very slight spondylolisthesis of L4 and L5. Dictated and Signed | | | by: Bartolo Riley MD Electronically signed: 04/20/2016 11:38 AM | | | | | + + + + + | Procedure Note | + + | Richard, Rad Results In - 04/20/2016 11:41 AM PDT EXAM: XR LUMBAR SPINE 4 + VW dated | | 04/20/2016 8:29 AMHISTORY:Back PainCOMPARISON: Outside MRI dated December 01 | | 2015.FINDINGS:Mild leftward curvature. These may be positional. There are | | 5nonrib-bearing lumbar-type vertebral bodies. In the neutral position there isslight | | retrolisthesis of L4 and anterolisthesis of L5. No significant discspace narrowing. | | There are marginal osteophytes through the thoracolumbarjunction. There are no | | compression deformities. There is normalmineralization. There is facet arthrosis at | | L4-L5 and L5-S1. No abnormaltranslation with flexion or extension.IMPRESSION -Diffuse | | mild spondylosis.Very slight spondylolisthesis of L4 and L5.Dictated and Signed by: | | Bartolo Riley MD Electronically signed: 04/20/2016 11:38 AM | |junction. There are no compression deformities. There is normal | |mineralization. There is facet arthrosis at L4-L5 and L5-S1. No abnormal | |translation with flexion or extension. | | | |IMPRESSION - | | | |Diffuse mild spondylosis. | | | |Very slight spondylolisthesis of L4 and L5. | | | |Dictated and Signed by: Bartolo Riley MD | | Electronically signed: 04/20/2016 11:38 AM | + + + + + + + | Performing | Address | City/State/Zipcode | Phone Number | | Organization | | | | + + + + + | [facility] | [address] | [place] | [phone] | | [facility] | | [address] | | | - IMAGING | | | | + + + + + documented in this encounter Visit Diagnoses + + | Diagnosis | + + | Back pain, unspecified back pain laterality, unspecified location - Primary | + + documented in this encounter"
--- OUTSIDE RECORDS SUMMARY | ~2020-06-26 | XMS | Encounter Summary ---
Demographics + + + | Address | [address] | | | [place] [address] | + + + | Home Phone | | + + + | Preferred Language | Unknown | + + + | Marital Status | | + + + | Sabianist Affiliation | Unknown | + + + | Race | Unknown | + + + | Ethnic Group | Unknown | + + + Author + + + | Author | [facility] | | | and [place] | + + + | Organization | [facility] | | | and [place] | + + + | Address | Unknown | + + + | Phone | Unavailable | + + + Support + + + + + | Name | Relationship | Address | Phone | + + + + + | Mark Escobar | [place] | [address] | | | | | [place] | | | | | [address] | | + + + + + Care Team Providers + +------+ + | Care Signal Supervisor Name | Role | Phone | + +------+ + | Maria C Cordova MD | PCP | | + +------+ + Reason for Visit + + + | Reason | Comments | + + + | Follow-up | 3 month | + + + Encounter Details +--------+---------+ + + + | Date | Type | Department | Care Team | Description | +--------+---------+ + + + | 06/15/ | Office | [facility] | Trevor Mcdonnell, | Essential | | 2020 | Visit | CARDIOLOGY [place] | [address] | hypertension | | | | [address] | [place], [place] | (Primary Dx); | | | | [facility] [place] | [address] | Vasovagal syncope | | | | [address] | | | | | | [phone] | | | +--------+---------+ + + + Social History + +-------+ [...] + + documented as of this encounter Last Filed Vital Signs + + + + + | Vital Sign | Reading | Time Taken | Comments | + + + + + | Blood Pressure | 122/80 | 06/15/2020 11:48 AM | | | | | PDT | | + + + + + | Pulse | 56 | 06/15/2020 11:48 AM | | | | | PDT | | + + + + + | Temperature | 36.7 C (98 F) | 06/15/2020 11:48 AM | | | | | PDT | | + + + + + | Respiratory Rate | - | - | | + + + + + | Oxygen Saturation | 98% | 06/15/2020 11:48 AM | | | | | PDT | | + + + + + | Inhaled Oxygen | - | - | | | Concentration | | | | + + + + + | Weight | 82.6 kg (182 lb) | 06/15/2020 11:48 AM | | | | | PDT | | + + + + + | Height | 177.8 cm (5' 10") | 06/15/2020 11:48 AM | | | | | PDT | | + + + + + | Body Mass Index | 26.11 | 06/15/2020 11:48 AM | | | | | PDT | | + + + + + documented in this encounter Progress Notes Trevor Mcdonnell MD - 06/15/2020 11:45 AM PDTFormatting of this note might be different f rom the original. Date of visit: 06/15/2020 Primary Care Physician: Maria C Cordova MD CHIEF COMPLAINT: Chief Complaint Patient presents with Follow-up 3 month HISTORY OF PRESENT ILLNESS: Thomas is 70 y.o. here for First episode patient was in a plane with his before takeoff he started feeling nauseo us, after that was noted to be unconscious by his . Apparently there were few doctors a t the time that evaluated him on board of the plane. Patient continued his usual day withou t any further events. Another episode happened few months ago 2019 when he was driving back from the airport in [facility], he stopped to have lunch while eating a burger he had a brief few seconds syncopal episode. The third episode happened as well while eating dinner at home with his again for a few seconds. The fourth and the final time happened without complete loss of conscio usness, patient felt chest discomfort he knew his symptoms he started breathing slow and it passed without syncope. Seen earlier in 2017 secondary to essential hypertension at that time. Noted to be bradyca rdic back then atenolol dosage was decreased. Has been active otherwise. Lately has been having some mild tiredness and fatigue. 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 Past medical history, SH, FH, and medications were reviewed in the chart. Medications: Outpatient Encounter Medications as of 06/15/2020 Medication Sig Dispense Refill amLODIPine (NORVASC) 5 mg tablet Take 5 mg by mouth Daily. atenolol (TENORMIN) 25 mg tablet Take 1 tablet by mouth Daily. (Patient not taking: Rep orted on 06/15/2020.) atorvaSTATin (LIPITOR) 40 mg tablet Take 40 [...] mouth as needed for Erectile Dysfunction. No facility-administered encounter medications on file as of 06/15/2020. Allergies Allergies Allergen Reactions Lisinopril Cough REVIEW OF SYSTEMS: Constitutional: negative for fatigue. No fever, chills, and rigors. No report of weight ch guero. HEENT: Negative for nosebleeds, ear discharge, nasal congestion or soar throat. Eyes: Negative for visual disturbance, redness, or secretion. Respiratory: Negative for cough, sputum production, hemoptysis, wheezing. Cardiovascular: Negative for orthopnea. No chest pain or tightness. No LE edema. Gastrointestinal: Negative for nausea, vomiting, diarrhea, abdominal pain and blood in stoo l. Genitourinary: Negative for dysuria or hematuria. Musculoskeletal: Negative for myalgias, back pain or arthralgia. Skin: Negative for rash. Neurological: Negative for dizziness. No numbness. No recent falls. No slurred speech. Hematological: No significant bruising. Psychiatric/Behavioral: No depression or anxiety. PHYSICAL EXAM Vital Signs: BP 122/80 | Pulse 56 | Temp 36.7 C (98 F) | Ht 1.778 m (5' 10") | Wt 82.6 kg (182 l b) | SpO2 98% | BMI 26.11 kg/m GENERAL APPEARANCE: Alert, oriented, cooperative, no distress, appears stated age. HEENT: Extraocular movements were intact. No jaundice. Pupiles round and reactive. NECK: No JVD, lymphadenopathy. Carotid upstrokes normal. No carotid bruit heard. CARDIAC: Regular rhythm and rate. There is normal S1 and S2. No galop. No murmur. CHEST: Normal bilateral symmetrical chest excursion.ackles or wheezing. No evidence of dull ness. ABDOMEN: Soft.No tenderness or guarding. No palpable organs. Active bowel sounds. EXTREMITIES: No lower extremities edema, cyanosis or clubbing. NEURO: Alert and oriented times three with no focal deficit. Cranial nerves are grossly no rmal. SKIN: Warm and dry. No rash. Psych: Normal affect and mood. DATA No results found for: NA, K, CO2, BUN, CREA, CALCIUM, MG No results found for: WBC, HGB, HCT, MCV, LABPLAT No results found for: ALT, CHOL, TRIG, HDL, LDLEX, GLUF, TSH EC06/15/2020 Ordered and reviewed by himself showed sinus bradycardia otherwise normal EKG. Last Echo: 02/27/2020 Normal left ventricular size and function EF 60%. Mild degenerative changes in the aortic a nd mitral valves. Normal right ventricular size and function. Last Stress test: Last Cath: Last US carotid: Event monitor 06/15/2020 Predominantly sinus rhythm, total burden of bradycardia 26%, multiple pauses longest 4.1-se cond. Nonsustained ventricular tachycardia longest 26 beats. Supraventricular tachycardia longes t 16 beats. Holter 03/15/2020 Reviewed predominantly sinus rhythm. Average heart rate was 64 bpm, min HR was 46 bpm, occa sional PVC total burden of 2.55%. ASSESSMENT: Patient is 70 y.o. with 1. Hypertension mostly controlled. 2. Sick sinus syndrome symptomatic with recurrent syncopal episodes due to pauses. 3. Occasional premature ventricular contractions. 4. Dyslipidemia on statin. Plan: Patient symptoms persist despite stopping atenolol. Reviewed the event monitor with the patient and Dr. Savage from EP team. Plan for dual-chamber pacemaker. Instructions were given to the patient plan for next week. Consider restarting metoprolol succinate after pacemaker implantation. We will continue to follow-up after. *This report has been prepared using a voice recognition system. The report was reviewed fo r accuracy, however, sound-alike word errors, addition and/or deletions may occur. If there is any question about this report please contact me. Trevor Mcdonnell MD, MPH documented in this encounter Plan of Treatment +--------+ + + + + | Date | Type | Specialty | Care Team | Description | +--------+ + + + + | 08/09/ | Office | Cardiology | Joseph Claire | | 2019 | Visit | | [address] | | | | | | [address] | | | | | | [place] [address] | | | | | | [phone] | | | | | | | | +--------+ + + + + | 08/09/ | Procedure | Cardiology | | | | 2019 | visit | | | | +--------+ + + + + | 10/19/ | Office | Cardiology | Trevor Mcdonnell, | | | 2019 | Visit | | MD [address] | | | | | | [place] | | | | | | [address] | | | | | | | | +--------+ + + + + documented as of this encounter Procedures + +--------+ + + + | Procedure Name | Priori | Date/Time | Associated Diagnosis | Comments | | | ty | | | | + +--------+ + + + | ECG 12 LEAD | Routin | 06/15/2020 | Essential | Results for this | | | e | 12:00 PM | hypertension | procedure are in the | | | | PDT | Vasovagal syncope | results section. | + +--------+ + + + documented in this encounter Results ECG 12 lead (06/15/2020 12:00 PM PDT) + + + + + + | Component | Value | Ref Range | Performed | Pathologist | | | | | At | Signature | + + + + + + | VENTRICULAR | 52 | BPM | [facility] | | | RATE EKG | | | | | + + + + + + | ATRIAL RATE | 52 | BPM | [facility] | | + + + + + + | P-R | 166 | ms | [facility] | | | INTERVAL | | | | | + + + + + + | QRS | 88 | ms | [facility] | | | DURATION | | | | | + + + + + + | Q-T | 452 | ms | [facility] | | | INTERVAL | | | | | + + + + + + | Q-T | 420 | ms | [facility] | | | INTERVAL | | | | | | (CORRECTED) | | | | | + + + + + + | P WAVE AXIS | 8 | degrees | [facility] | | + + + + + + | QRS AXIS | 42 | degrees | [facility] | | + + + + + + | T AXIS | 49 | degrees | [facility] | | + + + + + + | INTERPRETAT | Sinus | | [facility] | | | ION TEXT | bradycardiaOtherwise | | | | | | normal ECGWhen compared | | | | | | with ECG of 14-AUG-2017 | | | | | | 10:36,No significant | | | | | | change was | | | | | | foundConfirmed by | | | | | | TREVOR MCDONNELL MD | | | | | | ([id number]) on 06/16/2020 | | | | | | 9:20:01 AM | | | | + + + + + + + + | Specimen | + + | | + + + + + | Narrative | Performed At | + + + | | | + + + + +---------+ + + | Performing | Address | City/State/Zipcode | Phone Number | | Organization | | | | + +---------+ + + | [facility] | | | | + +---------+ + + documented in this encounter Visit Diagnoses + + | Diagnosis | + + | Essential hypertension - Primary Unspecified essential hypertension | + + | Vasovagal syncope Syncope and collapse | + + documented in this encounter
--- OUTSIDE RECORDS SUMMARY | ~2020-06-26 | XMS | Encounter Summary ---
Demographics + + + | Address | [address] | | | [place] [address] | + + + | Home Phone | | + + + | Preferred Language | Unknown | + + + | Marital Status | | + + + | Taoist Affiliation | Unknown | + + + | Race | Unknown | + + + | Ethnic Group | Unknown | + + + Author + + + | Author | [facility] | | | and [place] | + + + | Organization | [facility] | | | and [place] | + + + | Address | Unknown | + + + | Phone | Unavailable | + + + Support + + + + + | Name | Relationship | Address | Phone | + + + + + | Mark Escobar | [place] | [address] | | | | | [place] | | | | | [address] | | + + + + + Care Team Providers + +------+ + | Care Spd Manager Name | Role | Phone | [...] + + | 04/26/ | Documentati | [facility] | Linda Delarosa Eliza, | Other (urgent | | 2020 | on | [facility]Y [place] | Technologist | report) | | | | [address] | | | | | | [place] | | | | | | [address] | | | | | | [phone] | | | +--------+ + + + [...] Progress Notes Linda Delarosa, Technologist - 04/26/2020 4:05 PM PDTReceived urgent report 04/26/20 Pt had a urgent report 04/26/20 at 11:43 47 BPM activity none for possible Pause 3.2 s >3 s 30 day monitor was placed 04/22/20 Medication: None Called PT And he said he feels fine and thinks he was eating a sandwich at that time. He also told me that he talked to you earlier. Will continue to monitor Please see attachment Associated attestation - Trevor Godinez MD - 04/26/2020 5:07 PM PDTReviewed and bhavik montes monitoring. documented in this encounter Plan of [...] | | | | | | [place] [address] | | | | | | [phone] | | | | | | | | +--------+ + + + + | 08/09/ | Procedure | Cardiology | | | | 2019 | visit | | | | +--------+ + + + + | 10/19/ | Office | Cardiology | Trevor Godinez, | | | 2020 | Visit | | [address] | | | | | | [place] | | | | | | [address] | | | | | | | | +--------+ + + + + documented as of this encounter Visit Diagnoses Not on filedocumented in this encounter"
--- OUTSIDE RECORDS SUMMARY | ~2020-06-26 | XMS | Encounter Summary ---
Demographics + + + | Address | [address] | | | [place] [address] | + + + | Home Phone | | + + + | Preferred Language | Unknown | + + + | Marital Status | | + + + | Gnosticist Affiliation | Unknown | + + + | Race | Unknown | + + + | Ethnic Group | Unknown | + + + Author + + + | Author | [facility] | | | and [place] | + + + | Organization | [facility] | | | and [place] | + + + | Address | Unknown | + + + | Phone | Unavailable | + + + Support + + + + + | Name | Relationship | Address | Phone | + + + + + | Mark Escobar | [place] | [address] | | | | | [place] | | | | | [address] | | + + + + + Care Team Providers + +------+ + | Care Electrician Journeyman Wireman Name | Role | Phone | + +------+ + | Maria C Cordova MD | PCP | | + +------+ + Reason for Visit +--------+ + | Reason | Comments | +--------+ + | Other | End of Study / 30 day MadiLynx | +--------+ + Encounter Details +--------+ + + + + | Date | Type | Department | Care Team | Description | +--------+ + + + + | 04/22/ | Documentati | [facility] | Moe Loera, | Other (End of Study | | 2019 | on | CARDIOLOGY [place] | Technologist | / [place]) | | | | [address] | | | | | | [place] | | | | | | [address] | | | | | | [phone] | | | +--------+ + + + [...] documented as of this encounter Progress Notes Moe Loera, Technologist - 04/22/2020 11:59 PM PDT Cardiac Nuclear Medicine Tech Date of Event Monitor: 04/22/2020 Referring Physician: [place]: Thomas Escobar : 1950 Age: 70 y.o. male INDICATIONS: Syncope CONCLUSIONS: 1. 1 month event monitor, total of 95% diagnostic data. 2. Patient was predominantly in sinus rhythm. 3. Average heart rate was 69 bpm, minimum heart rate 41 bpm and maximal heart rate 151 bpm. Total of 28% bradycardia. 4. Arrhythmia was noted as multiple episodes of pauses longest was 4.1 seconds noted to be symptomatic. 5. Episodes of nonsustained ventricular tachycardia longest 26 beats. 6. Episodes of supraventricular tachycardia longest 16 beats. Monitor was reviewed with the patient and the EP team. documented in this encounter Plan of Treatment +--------+ + + + + | Date | Type | Specialty | Care Team | Description | +--------+ + + + + | 08/09/ | Office | Cardiology | Joseph Claire | | 2019 | Visit | | [address] | | | | | | [address] | | | | | | [place] [address] | | | | | | [phone] | | | | | | | [...] [place] | | | | | | [address] | | | | | | | | +--------+ + + + + documented as of this encounter Visit Diagnoses Not on filedocumented in this encounter"
--- OUTSIDE RECORDS SUMMARY | ~2020-06-26 | XMS | Encounter Summary ---
Demographics + + + | Address | [address] | | | [place] [address] | + + + | Home Phone | | + + + | Preferred Language | Unknown | + + + | Marital Status | | + + + | Gnosticist Affiliation | Unknown | + + + | Race | Unknown | + + + | Ethnic Group | Unknown | + + + Author + + + | Author | [facility] | | | and [place] | + + + | Organization | [facility] | | | and [place] | + + + | Address | Unknown | + + + | Phone | Unavailable | + + + Support + + + + + | Name | Relationship | Address | Phone | + + + + + | Mark Escobar | [place] | [address] | | | | | [place] | | | | | [address] | | + + + + + Care Team Providers + +------+ + | Care Literacy Specialist Name | Role | Phone | + +------+ + | Maria C Cordova MD | PCP | | + +------+ + Reason for Visit +--------+ + | Reason | Comments | +--------+ + | Other | 30 day event monitor | +--------+ + Encounter Details +--------+ + + + + | Date | Type | Department | Care Team | Description | +--------+ + + + + | 04/22/ | Procedure | [facility] | NeyTrevor, | Vasovagal syncope; | | 2019 | visit | CARDIOLOGY [place] | [address] | Essential | | | | [address] | [place], [place] | hypertension | | | | [address] | [address] | | | | | [place] | | | | | | [address] | | | | | | [phone] | | | +--------+ + + + [...] + + documented as of this encounter Patient Instructions Patient Instructions Maci Deutsch CMA - 04/22/2020 9:15 AM [id number] sig cliff by Maci Deutsch CMA at 04/22/2020 9:43 AM PDT documented in this encounter Progress Notes Maci Deutsch CMA - 04/22/2020 9:15 AM PDT30 day cardiac event monitor placed on patie nt. EOB/Billing information discussed. Instructions given and understood.Electronically sign ed by Maci Deutsch CMA at 04/22/2020 9:44 AM PDTdocumented in this encounter Plan of Treatment +--------+ + + + + | Date | Type | Specialty | Care Team | Description | +--------+ + + + + | 08/09/ | Office | Cardiology | Joseph Claire | | 2019 | Visit | | [address] | | | | | | [address] | | | | | | [place] [address] | | | | | | [phone] | | | | | | | [...] [place] | | | | | | [address] | | | | | | | | +--------+ + + + + documented as of this encounter Visit Diagnoses + + | Diagnosis | + + | Vasovagal syncope Syncope and collapse | + + | Essential hypertension Unspecified essential hypertension | + + documented in this encounter"
--- OUTSIDE RECORDS SUMMARY | ~2020-06-26 | XMS | Encounter Summary ---
Demographics + + + | Address | [address] | | | [place] [address] | + + + | Home Phone | | + + + | Preferred Language | Unknown | + + + | Marital Status | | + + + | Synagogue Affiliation | Unknown | + + + | Race | Unknown | + + + | Ethnic Group | Unknown | + + + Author + + + | Author | [facility] | | | and [place] | + + + | Organization | [facility] | | | and [place] | + + + | Address | Unknown | + + + | Phone | Unavailable | + + + Support + + + + + | Name | Relationship | Address | Phone | + + + + + | Mark Escobar | HANY | [address] | | | | | [place] | | | | | [address] | | + + + + + Care Team Providers + +------+ + | Care Rn Emergency Name | Role | Phone | + +------+ + | Maria C Cordova MD | PCP | | + +------+ + Reason for Visit Auth/Cert +--------+--------+ + + + + | Status | Reason | Specialty | Diagnoses / | Referred By | Referred To | | | | | Procedures | Contact | Contact | +--------+--------+ + + + + | | | | Diagnoses | | Franko Reina | | | | | AV heart | | MD Isaias | | | | | block | | [address] | | | | | Procedures | | [address] | | | | | [place] | | [place], [place] | | | | | NEW/RPLCMT | | [address] Phone: | | | | | PRM PM | | [phone] | | | | | W/TRANSV | | Fax: | | | | | ELTRD | | [phone] | | | | | ATRIAL&VENT | | | | | | | CV EP PPM | | | | | | | SYSTEM | | | | | | | IMPLANT | | | +--------+--------+ + + + + Encounter Details +--------+ + + + + | Date | Type | Department | Care Team | Description | +--------+ + + + + | 06/21/ | Hospital | [facility] | Franko Reina, | AV heart block; | | 2019 - | Encounter | [facility] | MD [address] | AV heart block; | | | | [address] | [place], | Sinus arrest | | 06/23/ | | [place], [place] | [place] [address] | | | 2020 | | [address] | [phone] | | | | | [phone] | | | +--------+ + + + [...] + + + | Blood Pressure | 156/88 | 06/23/2020 11:33 AM | | | | | PDT | | + + + + + | Pulse | 60 | 06/23/2020 7:49 AM | | | | | PDT | | + + + + + | Temperature | 36.5 C (97.7 F) | 06/23/2020 11:33 AM | | | | | PDT | | + + + + + | Respiratory Rate | 16 | 06/23/2020 11:33 AM | | | | | PDT | | + + + + + | Oxygen Saturation | 99% | 06/23/2020 11:33 AM | | | | | PDT | | + + + + + | Inhaled Oxygen | - | - | | | Concentration | | | | + + + + + | Weight | 82.2 kg (181 lb 3.5 | 06/21/2020 11:23 AM | | | | oz) | PDT | | + + + + + | Height | 177.8 cm (5' 10") | 06/21/2020 11:23 AM | | | | | PDT | | + + + + + | Body Mass Index | 26 | 06/21/2020 11:23 AM | | | | | PDT | | + + + + + documented in this encounter Functional Status + + + + | Functional Status | Response | Date of Assessment | + + + + | Are you deaf or do you have serious | No | 06/23/2020 | | difficulty hearing? | | | + + + + | Are you blind or do you have serious | No | 06/23/2020 | | difficulty seeing, even when wearing | | | | glasses? | | | + + + + | Do you have serious difficulty walking or | No | 06/23/2020 | | climbing stairs? (5 years old or older) | | | + + + + | Do you have difficulty dressing or bathing? | No | 06/23/2020 | | (5 years old or older) | | | + + + + | Because of a physical, mental, or emotional | No | 06/23/2020 | | condition, do you have difficulty doing | | | | errands alone such as visiting a doctor's | | | | office or shopping? [15 years old or | | | | older)] | | | + + + + + + + + | Cognitive Status | Response | Date of Assessment | + + + + | Because of a physical, mental, or emotional | No | 06/23/2020 | | condition, do you have serious difficulty | | | | concentrating, remembering, or making | | | | decisions? (5 years old or older) | | | + + + + documented as of this encounter Discharge Summaries Joseph Claire FNP - 06/26/2020 9:08 AM PDTFormatting of this note might be dif ferent from the original. [facility] Electrophysiology Discharge Summary Patient: Obinna Escobar : 1950 PRIMARY CARE: Maria C Cordova MD Admission Diagnosis: AV heart block [I44.30] Date of Admission: 06/21/2020 Date of Discharge: 06/26/2020 Treatment Team: Rohit Millan MD Discharging Provider: MIRELLA Mancilla Procedures Performed: Procedure(s) (LRB): CV EP PPM SYSTEM IMPLANT (N/A) Chief Complaint: No chief complaint on file. Hospital Course: Obinna Escobar is a 70 y.o. male who was admitted on 06/21/2020 with high degree AV block. Pl ease see previous progress note 06/23/2020 for details and hospital course Discharge Exam and Data: Vital Signs: BP 156/88 | Pulse 60 | Temp 36.5 C (97.7 F) (Oral) | Resp 16 | Ht 1.778 m (5' 10") | Wt 82.2 kg (181 lb 3.5 oz) | SpO2 99% | BMI 26.00 kg/m Recent Labs Recent Labs Lab 06/21/20 1145 WBC 7.76 HGB 15.1 HCT 43.1 PLT 258 Recent Labs Lab 06/21/20 1145 NA 142 K 3.8 CL 108 CO2 24 BUN 10 CALCIUM 9.2 No results for input(s): INR in the last 168 hours. Recent Radiology Results @RISIMPRESSION@ Outstanding Issues: none Discharge Information: Follow up: Franko Reina MD [address] [place] [facility] [address] In 1 week For wound re-check - you may text Dr Reina a photo of the op site if you have no wound heal ing concerns Franko Reina MD [address] [place] [address] In 6 weeks Pacemaker reprogramming and optimization in 6 to 8 weeks - needs to be done in [place] off [place] Discharge Medications New Medications Details acetaminophen 325 mg tablet Take 2 tablets by mouth every 4 hours. aka: TYLENOL metoprolol succinate 100 mg ER tablet Take 1 tablet by mouth Daily. aka: TOPROL-XL Unchanged Medications Details atorvaSTATin 40 mg tablet Take 40 mg by mouth nightly. aka: LIPITOR levothyroxine 50 mcg tablet Take 50 mcg by mouth every morning (before breakfast). aka: SYNTHROID losartan 100 MG tablet Take 100 mg by mouth Daily. aka: COZAAR omeprazole 20 mg capsule Take 20 mg by mouth every morning (before breakfast). aka: priLOSEC tadalafil 20 MG tablet Take 20 mg by mouth as needed for Erectile Dysfunction. aka: CIALIS Discontinued Medications atenolol 25 mg tablet aka: TENORMIN Disposition: Home Condition: Stable Code Status: Prior Discharge took 45 minutes, to include final examination, discussion of admission, and prepa ration of prescriptions, instructions for on-going care, follow-up and documentation of disc harge summary. MIRELLA Mancilla 9:08 AM PDT documented in this encounter Discharge Instructions Instructions Joseph Claire FNP - 06/20/2020 Discontinue Atenolol Start Toprol XL (metoprolol) 100 mg once daily Continue all other medications Pacemaker Discharge Instructions You have just received a permanent pacemaker (PPM). You probably have a lot of questions co ncerning your new implanted device. There are several things that you need to know and a few things that you must do that are very important, especially over the next four weeks. FOLLOW-UP APPOINTMENTS First, be sure to come for all of your post-operative check-ups. The first visit is usually to check that your incision is healing properly. You will be seen by the Nurse or Nurse Pra ctitioner in approximately 7-10 days after pacemaker implantation. The next visits are to lynda that your pacemaker is functioning properly. You will be seen by a Nurse or Device Exper t for these follow-up device clinic checks. At each visit, you will be instructed on how oft en your pacemaker will need to be checked either in the office or via your home monitoring s ystem. During your check-ups, your pacemaker will be checked for proper functioning, battery status and optimized to settings that will best suit your heart. You can expect that your p acemaker battery (sometimes known as the generator ) will last from 7-10 years, dependi ng on usage. Your appointments will be at the [facility] in [place] across from the [facility]. The address is [address] [place] [address]. The office is located on the [address]. This appointment should already be scheduled for you, but if not, please call to schedule your appointment. INCISION SITE CARE You may have a small to moderate amount of pain over the next 48 hours. Take Tylenol 625mg every 4-6 hours for the next 24 hours. After the first 24 hours, you can take 500mg of Tylen ol every 6 hours as needed for pain.Your incision is closed with Dermabond. DO NOT GET THIS INCISION OR THE DERMABOND WET FOR 7 DAYS AFTER SURGERY. Then, it is OK to take showers only. The dermabond may start to peel and curl along the edges, but should not be removed prior t o your nurse visit. This aids in healing the incision properly. There are no stitches to be removed. There are several layers of stitches internally that will be naturally absorbed by your body over time. You will have a follow up appointment in approximately 7-10 days with t he Nurse or Nurse Practitioner. FOR ALL INCISIONS After you go home from the hospital, you may sponge around the shoulder/pacemaker incision site with soap and water or a baby wipe. Please make sure that you DO NOT GET THE INCISION S ITE WET. Also, do not touch your incision directly or apply any creams, lotions, ointments, salves, alcohol or powder to the incision line. If you would like to shower, please use "Pre ss and Seal" (found near Glad Wrap section" to cover the incision line while showering. Goyo ve after showering and pat the area dry. WHEN TO CALL OUR OFFICE If you have any questions about how the incision is healing or you are worried that the in cision is not healing properly, please call our office and ask to speak with the nurse at [phone]. There are certain signs of infection to watch for as your incision line is heali ng. Please call the office if your notice any green drainage, redness, splitting along the i ncision line, significant swelling or a bruise bigger than the palm of your hand, or if you start running a fever greater than 100.4 degrees. If you develop symptoms similar to those you had prior to pacemaker insertion (ie. Unusual fatigue, dizziness, fainting or near fainting, palpitations, chest pain or difficulty breath ing), please call our office. WHAT TO EXPECT You can expect the incision line and insertion site to be sore for the next 1-2 weeks. This is normal. You may take pain medicine, as needed. Women may wish to pad the incision site w ith a clean washcloth or handkerchief to keep the bra strap from irritating the incision. WHAT TO DO/WHAT NOT TO DO Do not lift anything heavier than 10 pounds with the arm on the side of your pacemaker inse rtion site for the next 1 WEEK. Do not lift your arm above your head or past shoulder height for the next 1 WEEK. These two activity limitations are exceptionally important as the lead s of the pacemaker heal and secure into the heart tissue. Any excessive activity could dislo dge the lead (or leads) that is in your heart connected to your pacemaker. DO NOT IMMOBILIZE YOUR ARM OR SHOULDER. You may resume driving after one week. You may use all of the appliances in your home, incl uding microwaves, electric blankets, computers, TV/DVD players, and drills. Now that you hav e a pacemaker, catalina hammering should be avoided. You may use arc welders and roto-tillers wi th caution. Before you go home from the hospital, you will receive a temporary ID card and manual that has information about your new pacemaker and the physician who implanted it. You will receiv e a permanent ID card in the mail, in approximately 4-6 weeks from the company that manufact ured your device. It is very important that you keep this card with you at ALL TIMES, especi ally in the case of an emergency. You can travel and fly without restriction. You can go through metal detectors in the airpo rt; however, your pacemaker may trigger alarms. You should show your ID card to security per songulshan before going through the metal detector. If you have any questions about your pacemaker once you are at home, please call the office at [phone]. documented in this encounter Medications at Time of Discharge + + + +---------+ + + | Medication | Sig | Dispensed | Refills | Start | End Date | | | | | | Date | | + + + +---------+ + + | acetaminophen | Take 2 tablets by | 15 | 11 | 06/22/20 | | | (TYLENOL) 325 mg | mouth every 4 hours. | tablet | | 20 | | | tablet | | | | | | + + + +---------+ + + | atorvaSTATin | Take 40 mg by mouth | | 0 | | | | (LIPITOR) 40 mg | nightly. | | | | | | tablet | | | | | | + + + +---------+ + + | levothyroxine | Take 50 mcg by mouth | | 0 | | | | (SYNTHROID, | every morning | | | | | | LEVOTHROID) 50 mcg | (before breakfast). | | | | | | tablet | | | | | | + + + +---------+ + + | losartan (COZAAR) | Take 100 mg by mouth | | 0 | | | | 100 MG tablet | Daily. | | | | | + + + +---------+ + + | metoprolol | Take 1 tablet by | 30 | 11 | 06/23/20 | | | succinate | mouth Daily. | tablet | | 20 | | | (TOPROL-XL) 100 mg | | | | | | | ER tablet | | | | | | + + + +---------+ + + | omeprazole | Take 20 mg by mouth | | 0 | | | | (PRILOSEC) 20 mg | every morning | | | | | | capsule | (before breakfast). | | | | | + + + +---------+ + + | tadalafil (CIALIS) | Take 20 mg by mouth | | 0 | | | | 20 MG tablet | as needed for | | | | | | | Erectile | | | | | | | Dysfunction. | | | | | + + + +---------+ + + documented as of this encounter Progress Notes Joseph Claire, MIRELLA - 06/23/2020 10:17 AM PDTFormatting of this note might be dif ferent from the original. [facility] PATIENT NAME: Obinna Escobar : 1950: AGE: 70 y.o. ADMISSION DATE: 06/21/2020 Hospital Day # 0 Date of Service: 06/23/2020 Principal Hospital Problem: <principal problem not specified> Code Status: Full Code PRIMARY CARE: Maria C Cordova MD ELECTROPHYSIOLOGY HOSPITAL FOLLOW UP Events since last note: Patient remained stable overnight. No complaints of chest pain, gifty rtness of breath, dizziness, palpitations. Normal device function seen on telemetry. Site lo oks good, CDI no evidence of hematoma or infection. Summary of EP Recommendations: Stop Atenolol Increase Metoprolol succinate to 100mg daily Avoid alcohol Avoid caffeine Problem Pneumothorax On Left CXR showed left sided apical pnuemo post pacemaker implant. IR was consulted and chest tub e was placed yesterday. 06/23/2020 Pneumothorax status post chest tube placement, with imaging reporting resolution of pneumot horax. Chest tube was removed at the bedside. Patient tolerated well. Will obtain final c hest x-ray and if findings are stable then IR will sign off Cardiac Pacemaker [employer]: FINAL SETTINGS FOR THE DEVICE: Mode for pacing AAI with VVI backup. T he output will be 3.5 volts at 0.4 milliseconds in both the right atrium and right ventricle with a sensitivity of 0.5 millivolts in the atrium and 2.5 millivolts in the right ventricl e. The lower rate will be 60 and upper rate 130 beats per minute. The paced AV delay will be 170 milliseconds and sensed AV delay 150 milliseconds. That AV delay resulted in the mos t narrow QRS complex during ventricular pacing. The outputs will be 3.5 volts at 0.4 rosie seconds in the atrium and ventricle with a sensitivity of 0.5 millivolts in the atrium and 2 .5 millivolts in the ventricle. Pacing and sensing will be bipolar in both chambers. 06/23/2020 Normal device function seen on telemetry today. Site is [facility] no evidence of hematoma or infe ction SCHEDULED MEDS acetaminophen 650 mg Oral Q4H amLODIPine 5 mg Oral Daily atorvaSTATin 40 mg Oral Nightly levothyroxine 50 mcg Oral QAM AC losartan 100 mg Oral Nightly metoprolol succinate 100 mg Oral Daily pantoprazole 40 mg Oral QAM AC IV INFUSIONS Laboratory values which I reviewed 06/23/2020 are as follows: LABS Recent Labs Lab 06/21/20 1145 WBC 7.76 RBC 4.40 HGB 15.1 HCT 43.1 MCV 98.0 MCH 34.3* MCHC 35.0 PLT 258 MPV 10.2 DIFFTYPE AUTOMATED Recent Labs Lab 06/21/20 1145 WBC 7.76 HGB 15.1 HCT 43.1 NA 142 K 3.8 CL 108 CO2 24 BUN 10 CREA 1.04 GLU 87 CALCIUM 9.2 OBJECTIVE LATEST VITALS: BP 156/88 | Pulse 60 | Temp 36.5 C (97.7 F) (Oral) | Resp 16 | Ht 1 .778 m (5' 10") | Wt 82.2 kg (181 lb 3.5 oz) | SpO2 99% | BMI 26.00 kg/m REVIEW OF SYSTEMS A 10-point review of systems was performed and is negative except for the pertinent positiv es noted in the HPI. PHYSICAL EXAM Admit Weight: Weight: 82.2 kg (181 lb 3.5 oz) Current weight: Weight: 82.2 kg (181 lb 3.5 oz) General Appearance: Alert, oriented, cooperative, no distress, appears stated age HEENT: Extraocular movements intact. Pupils round and reactive. No jaundice. NECK: No JVD, No lymphadenopathy. Trachea is at midline. CARDIAC: Normal S1 and S2 heart sounds. No murmurs, rubs, or gallops. Non-displaced, non-culver stained apical impulse. CHEST: Normal symmetrical chest excursion. Good bilateral air entry with no crackles or whe ezing. ABDOMEN: Non tender, non distended, bowel sounds present, no organomegaly. EXTREMITIES: 2+ pulses radial and pedal, symmetric. No edema. NEURO: No focal deficits. Normal bulk, power, and tone. SKIN: No bruises or rash. Warm and dry. Pacer site CDi no evidence of hematoma or infection . CT side CDI Signed by: MIRELLA Mancilla 06/23/2020, 12:52 PM PDT Associated attestation - Franko Reina MD - 06/23/2020 7:32 PM PDTThis patient was see n and examined earlier today. He was looking good. The chest tube was removed and the foll ow-up chest x-ray looks good, with no evidence of a pneumothorax. Discharge instructions we re reviewed in detail and he was sent home. Osiris Reardon PA - 06/23/2020 8:39 AM PDTFormatting of this note might be differen t from the original. Interventional Radiology Progress Note Patient Name: Obinna Escobar Date of : 1950 Interval History/Subjective: Obinna Escobar is a 70 y.o. male who developed a pneumothorax following pacemaker placement s/p chest tube placement. CXR show resolution of pneumothorax following chest tube clamping trial. Patient reports he is feeling well today. Labs: 3 Day Labs: Recent Labs Lab 06/21/20 1145 WBC 7.76 HGB 15.1 HCT 43.1 PLT 258 NA 142 K 3.8 CL 108 CO2 24 BUN 10 CALCIUM 9.2 ALKPHOS 67 ALBUMIN 4.7 Pertinent Imaging/Procedures: Xr Chest Pa And Lateral Result Date: 06/22/2020 CHEST PA AND LATERAL CLINICAL INFORMATION: Follow-up left apical pneumothorax. COMPARISON: XR CHEST PA AND LATERAL (06/21/2020); XR CHEST PA AND LATERAL (06/21/2020); FINDINGS: Normal c ardiac size. Aortic atherosclerosis. Dual lead cardiac pacer in-situ. Ill-defined patchy opacity in lingular segment of the left upper lobe partial obscuration of left cardiac borde r, new as compared to radiographs dated 06/21/2020. Subtle ill-defined right basilar opaciti es, mildly increased as compared to radiographs dated 06/21/2020. Small to moderate left pneu mothorax, mildly increased as compared to radiographs dated 06/21/2020. The apical pleural s eparation measures approximately 5.8 cm, previously measured approximately 4.8 cm. No right pneumothorax. No pleural effusion. No acute osseous abnormality. *Ccflw-uv-icgyfkyj left pneumothorax, mildly increased as compared to radiographs dated 06/12. *Ill-defined opacities in lingular segment of left upper lobe and right lower lobe, new/increased as compared to radiographs dated 06/21/2020 could represent atelectasis and/or pneumonia. Final Report Signed by: Kam Darnell Pushpender Sign Date/Time: 06/22/2020 7:50 A M Xr Chest Pa And Lateral Result Date: 06/21/2020 CHEST PA AND LATERAL CLINICAL INFORMATION: Shortness of breath. COMPARISON: XR CHEST PA AND LATERAL (06/21/2020); FINDINGS: Heart is normal in size. Mild tortuosity of the thoracic ao rta. Left apical pneumothorax measuring 2.9 cm which measured 2.8 previously. No focal airs pace disease or pleural effusion. Mild left apical pneumothorax that has minimally progressed from the previous examination. Findings were discussed with Dr. Reina just prior to dictation. Final Report Signed by: Gaby webster D.O., Chet Sign Date/Time: 06/21/2020 6:50 PM Xr Chest Pa And Lateral Result Date: 06/21/2020 CHEST PA AND LATERAL CLINICAL INFORMATION: Shortness of breath, status post cardiac device placement. COMPARISON: None FINDINGS: There is a cardiac pacing device of the left chest wal l. This demonstrates 2 intact leads terminating in the region of the right atrium and right ventricle. Mild atherosclerotic calcification and ectasia of the thoracic aorta. Normal he art size. Mediastinal contours and pulmonary vessels are within normal limits. There is a small left apical and subpulmonic pneumothorax. The lungs are clear otherwise. Bones and so ft tissues are unremarkable. Small left apical and subpulmonic left pneumothorax. The findings will be called to the ref erring clinician. Final Report Signed by: Kam Lacy Robert Sign Date/Time: 06/21/2020 3: 53 PM Xr Chest Ap Portable Result Date: 06/23/2020 CHEST PORTABLE ONE VIEW CLINICAL INFORMATION: Chest tube clamped COMPARISON: Multiple radio graphs earlier on the same day FINDINGS: Cardiac silhouette is stable pacemaker is in stable position. No pneumothorax status post chest tube clamping. Mild hypoventilatory changes a t the left lung base. No significant pneumothorax with the chest tube clamped. Final Report Signed by: Angelita Millan Richard Sign Date/Time: 06/23/2020 7:55 AM Xr Chest Ap Portable Result Date: 06/22/2020 CHEST PORTABLE ONE VIEW CLINICAL INFORMATION: Chest tube to water seal. COMPARISON: XR CHES T AP PORTABLE (06/22/2020); IR DRAINAGE SOFT TISSUE VIA CATH PLACEMENT (06/22/2020); XR CHEST PA AND LATERAL (06/22/2020); FINDINGS: Left pacemaker with intact leads. Heart size and media stinal contours are normal. Left pleural catheter in unchanged position. Minimal left basila r platelike atelectasis. Lungs are otherwise clear. No visible pneumothorax. No acute osseo us abnormality. 1. Minimal left basilar platelike atelectasis. Lungs are otherwise clear. 2. Left pleural catheter in expected position. No visible pneumothorax. Final Report Signed by: Kam Kerns Isaac Sign Date/Time: 06/22/2020 2:55 PM Xr Chest Ap Portable Result Date: 06/22/2020 CHEST PORTABLE ONE VIEW CLINICAL INFORMATION: Status post chest tube. COMPARISON: IR DRAINA GE SOFT TISSUE VIA CATH PLACEMENT (06/22/2020); XR CHEST PA AND LATERAL (06/22/2020); XR CHEST PA AND LATERAL (06/21/2020); XR CHEST PA AND LATERAL (06/21/2020); FINDINGS: Stable mediastin um without deviation midline structures Pigtail drain, left hemithorax-with parenchymal linda ges in the peripheral left mid lung. The pleural air previously seen is much improved, now absent Pacing system with device, left chest The right lung is clear Stable skeleton 1. Post placement of pigtail drain with marked improvement of the previously identified le ft apical pneumothorax. No significant persistent pleural air Some residual infiltrate vers us atelectasis in the left mid lung, Final Report Signed by: Kam Fuller Timothy Sign Diallo e/Time: 06/22/2020 11:15 AM Ir Drainage Soft Tissue Via Cath Placement Result Date: 06/22/2020 FLUOROSCOPICALLY GUIDED LEFT CHEST TUBE PLACEMENT. CLINICAL INFORMATION: Left pneumothorax status post pacemaker placement. COMPARISON: XR CHEST PA AND LATERAL (06/22/2020); XR CHEST P A AND LATERAL (06/21/2020); XR CHEST PA AND LATERAL (06/21/2020); PROCEDURE: The risks, benefi ts and alternatives were discussed with the patient; consent was obtained and placed in the patient's chart. The risks included but were not limited to puncture site bleeding, stroke, kidney failure, allergic reaction and . The left chest is prepped and draped in usual s terile fashion. A spot is chosen the mid axillary line. Following local anesthesia the lef t pleural spaces accessed with an 18 gauge needle confirmation of needle positioning is conf irmed with aspiration of air. A guidewire is advanced anteriorly into the left chest and a 10 Filipino pigtail chest tube is placed over the wire into the pleural space. The chest tube is connected to Pleur-evac and 20 cm water section. The tube was secured in position with silk suture. Maximum sterile barrier techniques taken. All staff present in the room perform ed hand hygiene prior to the procedure. There were no immediate complications following the procedure. Estimated blood loss: Minimal. Fluoro Time: 0.3 minutes. Radiation dose: 2 mGy Co ntrast: None Conscious sedation was administered. The nurse administered 1 mg Versed and 50 mcg fentanyl s during the examination and monitored blood pressure, heart rate, and pulse o ximeter. Physician intraservice time of 6 minutes. A permanent sonographic recording was cre ated for the patient's record. FINDINGS: Fluoroscopic image shows the chest tube positioned in the left pleural space. Successful fluoroscopically guided left chest tube placement for pneumothorax. Plan: Will s tart patient on wall suction with planned to go to waterseal 1 pneumothorax resolves and hop efully clamping trial is later today. Final Report Signed by: Kam Millan, Rohit Sommers te/Time: 06/22/2020 9:41 AM Physical Examination: Vitals: 06/23/20 0749 BP: 171/83 Pulse: 60 Resp: 20 Temp: 36.6 C (97.9 F) Physical Exam Constitutional: He is oriented to person, place, and time. No distress. HENT: Head: Normocephalic and atraumatic. Neck: Neck supple. Cardiovascular: Normal rate. Pulmonary/Chest: Effort normal. No respiratory distress. Musculoskeletal: Normal range of motion. General: No edema. Neurological: He is alert and oriented to person, place, and time. Skin: Skin is warm and dry. He is not diaphoretic. No erythema. Psychiatric: Mood, memory and judgment normal. Assessment and Plan: Pneumothorax status post chest tube placement, with imaging reporting resolution of pneumot horax. Chest tube was removed at the bedside. Patient tolerated well. Will obtain final c hest x-ray and if findings are stable then IR will sign off. Osiris Johnson PA-C Vascular and Interventional Radiology Wade Barker ARNP - 06/22/2020 7:11 AM PDT [facility] PATIENT NAME: Obinna Escobar : 1950: AGE: 70 y.o. ADMISSION DATE: 06/21/2020 Hospital Day # 0 Date of Service: 06/22/2020 Principal Hospital Problem: <principal problem not specified> Code Status: Full Code PRIMARY CARE: Maria C Cordova MD ELECTROPHYSIOLOGY HOSPITAL FOLLOW UP Events since last note: Mr. Escobar is POD 1 s/p implantation of a [employer] DC PPM w/ the RV lead in the His bundle position with Dr Reina yesterday. Uneventful immediate post-op course. Some initial l ocalized incisional site pain, now well controlled. His post implant CXR was notable for a s mall L apical pneumo with repeat imaging yesterday showing slight worsening of the pneumotho rax. Mr. Escobar denies any chest pain, shortness of breath, orthopnea. He was started on O2 @ 4 - 5 LPM via NC and he spent the night for observation. He remains without any chest pain o r respiratory symptoms this morning. He reports he slept well overnight. This morning's CXR shows progression of the L sided pneumothorax - Dr Reina to consult IR provider for consider ation of chest tube. Otherwise, his incision line is CDI with no signs of erythema, swelling, bruising,oozing or hematoma. Farmers pham well adhered and intact. His device check was WNL last night with rep ashlyn for optimization completed by the rep, and tele this morning shows APVP with narr ow appearing QRS at a rate of 60 bpm. Post-op instructions relative to the device were agai n discussed with the patient. Questions asked and answered with expressed understanding. Summary of EP Recommendations: Dr Reina to consult IR for consideration of CT insertion given progression L sided pneumoth orax NPO pending IR consult and plan of care Continue Toprol XL 50 mg daily Eventual disposition contingent upon IR eval and tx plan - stable with regards to device im plantation and functionality at this time EP clinic FUV for wound check in 7 to 10 days EP clinic FUV then in 6-8 weeks for device optimization SCHEDULED MEDS acetaminophen 650 mg Oral Q4H atorvaSTATin 40 mg Oral Nightly levothyroxine 50 mcg Oral QAM AC metoprolol succinate 50 mg Oral Daily pantoprazole 40 mg Oral QAM AC IV INFUSIONS Laboratory values which I reviewed 06/22/2020 are as follows: LABS Recent Labs Lab 06/21/20 1145 WBC 7.76 RBC 4.40 HGB 15.1 HCT 43.1 MCV 98.0 MCH 34.3* MCHC 35.0 PLT 258 MPV 10.2 DIFFTYPE AUTOMATED Recent Labs Lab 06/21/20 1145 WBC 7.76 HGB 15.1 HCT 43.1 NA 142 K 3.8 CL 108 CO2 24 BUN 10 CREA 1.04 GLU 87 CALCIUM 9.2 OBJECTIVE LATEST VITALS: BP 149/86 | Pulse 60 | Temp 36.9 C (98.5 F) (Oral) | Resp 18 | Ht 1 .778 m (5' 10") | Wt 82.2 kg (181 lb 3.5 oz) | SpO2 97% | BMI 26.00 kg/m I/O s (this shift): No intake/output data recorded. REVIEW OF SYSTEMS A 10-point review of systems was performed and is negative except for the pertinent positiv es noted in the HPI. PHYSICAL EXAM Admit Weight: Weight: 82.2 kg (181 lb 3.5 oz) Current weight: Weight: 82.2 kg (181 lb 3.5 oz) General Appearance: Alert, oriented, cooperative, no distress, appears younger than stated age, pleasantly conversational using complete sentences reclined in a high fowlers position on O2 via NC @ 4 LPM. HEENT: Extraocular movements intact. No icterus. Bilateral hearing aids in place. NECK: No JVD. Trachea is at midline. CARDIAC: Normal S1 and S2 heart sounds. No murmurs, rubs, or gallops. CHEST: Normal symmetrical chest excursion. No crackles or wheezing, diminished L sided dhruv th sounds. No increased WOB. EXTREMITIES: 2+ pulses radial and pedal, symmetric. No edema. NEURO: No focal deficits. Normal bulk, power, and tone. SKIN: No bruises or rash. Warm and dry. L PPM insertion site: as above. Signed by: JENNIFER Silva 06/22/2020, 8:07 AM PDT Associated attestation - Franko Reina MD - 06/22/2020 7:32 PM PDTI saw and examined t his patient earlier today with nurse practitioner Elliot. I agree with her note and plan. Because of an expanding pneumothorax, a chest tube was placed by my interventional radiology colleague. I greatly appreciate his help. He is doing well. Has had 3 chest x-rays today that showed resolution of the pneumothorax with a chest tube. He does not appear to have a n air leak tonight or earlier today afternoon. Appropriate pacer function was seen on telem etry but there were frequent PVCs. Narrow QRS complex with ventricular pacing. He can be d ischarged home, when okay from the pneumothorax perspective.documented in this encounter H&P Notes Franko Reina MD - 06/21/2020 12:04 PM PDTI discussed this patient with Dr. Shea and because of long pauses of over 4 seconds in the context of syncope, a permanent pacemaker has been recommended. I have reviewed the risks, benefits, and rationale for the procedure as well as how we do it in detail and he is keen to proceed. Examination is unre markable except for a 2/6 systolic crescendo decrescendo murmur at the base, possibly relate d to aortic sclerosis or stenosis. He is asymptomatic and class I and exercises regularly. Chops wood on his ready without difficulty. Physical examination: He is alert and appropriate his responses and oriented x3. There was no peripheral edema. The first and second heart sounds were normal and there were gallops. The chest was clear to percussion and auscultation. Respirations were unlabored. The abdominal examination is unremarkable. He is mildly overweight. A pleasant gentleman. Recommendations: Proceed with dual-chamber pacemaker using a His bundle lead if possible. [employer] device. Curry Jonnathan Donohue ed, MD - 06/15/2020 11:45 AM PDT . Date of visit: 06/15/2020 Primary Care Physician: Maria C Cordova MD CHIEF COMPLAINT: Chief Complaint Patient presents with Follow-up 3 month HISTORY OF PRESENT ILLNESS: Obinna is 70 y.o. here for First episode [...] was driving back from the airport in [facility], he stopped to have lunch while eating [...] mild tiredness and fatigue. 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 Past medical history, SH, FH, [...] event monitor with the patient and Dr. Reina from EP team. Plan for dual-chamber pacemaker. [...] question about this report please contact me. Sekou Godinez MD, MPH documented in this encounter Miscellaneous Notes Plan of Care - Magalie White RN - 06/23/2020 12:33 PM PDTVS stable, no c/o pain. Marlena ent's chest tube removed, site CDI. Patient's pacemaker insertion site CDI. Patient educat ed on discharge instructions, answered all questions, escorted downstairs via wheelchair, an d transported home via spouse. Chart check complete. Problem: Adult Inpatient Plan of Care Goal: Plan of Care Review Outcome: Met Goal: Patient-Specific Goal Outcome: Met Goal: Absence of Hospital-Acquired Illness or Injury Outcome: Met Goal: Optimal Comfort and Wellbeing Outcome: Met Goal: Readiness for Transition of Care Outcome: Met Goal: Rounds/Family Conference Outcome: Met Problem: Fall Injury Risk Goal: Absence of Fall and Fall-Related Injury Outcome: Met Problem: Adjustment to Illness (Cardiac Rhythm Management Device) Goal: Optimal Adjustment to Device Presence Outcome: Met Problem: Device-Related Complication Risk (Cardiac Rhythm Management Device) Goal: Effective Device Function Outcome: Met Problem: Pain (Cardiac Rhythm Management Device) Goal: Acceptable Pain Level Outcome: Met lan of Care - Cruz Forbes RN - 06/23/2020 6:29 AM PDTPt had no events overnight. Pt remains A-paced wit h PVCs in the 60-70s. VSS. Voiding in bathroom. No SOB noted. Awaiting CXR to be read. No cr epitus or drainage noted at pigtail insertion site. Problem: Fall Injury Risk Goal: Absence of Fall and Fall-Related Injury Outcome: Ongoing, progressing Pt steady on feet and back to independent which is their baseline. Pt understands need to i nform and wait for staff if feeling dizzy when sitting up. Problem: Device-Related Complication Risk (Cardiac Rhythm Management Device) Goal: Effective Device Function Outcome: Ongoing, progressing No device-related issues overnight. PPM insertion site C/D/I and closed with liquid skin aime nd with no noted drainage. Pt A-paced with PVC's overnight. Problem: Pain (Cardiac Rhythm Management Device) Goal: Acceptable Pain Level Outcome: Ongoing, progressing Pt reports pain is controlled. Received scheduled Tylenol, but not requiring any additiona l PRN medications. Pt appears comfortable and reports being able to sleep. End of shift chart check complete. lan of Care - Penelope Waddell RN - 06/22/2020 10:48 AM PDT Problem: Adult Inpatient Plan of Care Goal: Plan of Care Review Outcome: Ongoing, progressing Problem: Pain (Cardiac Rhythm Management Device) Goal: Acceptable Pain Level Outcome: Ongoing, progressing pt medicated x [address] pain. Pt tolerated well. Problem: Device-Related Complication Risk (Cardiac Rhythm Management Device) Goal: Effective Device Function Outcome: Ongoing, progressing pt had dual pacer placed yesterday developed pneumo. Pt had CT placed to day. Multiple xra y done throughout day to verify pneumo is improving. Pt tolerating new CT well. Pt up ambula ting in [place] without issues. VSS. End of shift chart review complete. edation Documentation - Shaylee Arguello Technologist - 06/22/2020 8:43 AM PD TDrain tube sutured in place, sterile dressing applied, case end edation Documentation - Shaylee Arguello Technologist - 06/22/2020 8:42 AM PDTAccess obtained, followed by wire insertion, 10fr dr munoz tube inserted A M PDTSedation Documentation - Shaylee Arguello Technologist - 06/22/2020 8:38 AM PDTPositio n verification obtained under fluoro p Note - Franko Reina MD - 06/21/2020 10:[address] [facility] OPERATIVE REPORT FRANKO REINA MD Patient: OBINNA ESCOBAR Admitting: FRANKO REINA MR #: [id number] LOC: PT TYPE: Adm Date: 06/21/2020 : 1950 DATE OF PROCEDURE: 06/21/2020 PROCEDURE PERFORMED: A dual-chamber pacemaker with His bundle "RV lead." POSTOPERATIVE DIAGNOSIS: Sinus node dysfunction with symptomatic bradycardia associated wit h syncope NAME OF SURGEON: Franko Reina MD HISTORY: This 70-year-old gentleman was referred for a permanent pacemaker because of epis odes of presyncope and syncope, associated with pauses over 4 seconds. On a recent monitor, sinus arrest was seen, with pauses up to 4.2 seconds. A permanent pacemaker was therefore recommended. DESCRIPTION OF PROCEDURE: The patient was brought to the electrophysiology laboratory in t he post-absorptive, nonsedated state. Sedation was accomplished by our anesthesiologist. O nce the patient was comfortable, the left chest was prepped and draped in the usual sterile fashion and locally anesthetized with 1-percent Xylocaine. The left subclavian vein was acc essed twice and 2 guidewires were placed into the vessel. An 8-Filipino sheath was placed in to the subclavian vein, and through that, a [employer] His bundle sheath was advanced into the right atrium. Through that, a [employer] model 7842, serial #[id number] His b undle lead was placed through that sheath into the right atrium to map the septum. In the f inal location, a narrow QRS complex was achieved. It was slightly longer than the intrinsi c QRS complex, but only 110 milliseconds. After the His bundle sheath was split, the lead was anchored with two #1 Ethibond sutures. There was no diaphragmatic pacing at 10 volts. The final pacing threshold was 0.8 volts at 0.4 milliseconds with an impedance of 722 ohms a nd a current of 1.2 milliamps. R waves were 7.3 millivolts. A 6-Filipino sheath was placed into the subclavian vein, and through that, a [employer] model 7841, serial #[id number] lead was placed into the high anterior aspect of the right atr ium and screwed into position. The final pacing threshold was 0.7 volts at 0.4 milliseconds with an impedance of 579 ohms and a current of 1.3 milliamps. P waves were 3.6 millivolts. The leads were attached to a [employer] Accolade MRI compatible pacemaker (model L33 1, serial #[id number]). That device was placed into the pocket and anchored with a #1 Ethibond suture. The pocket was closed with multiple layers, using 2-0 Vicryl for the deep 2 layers, 3-0 Vicryl for the next layer and 4-0 Monocryl for the superficial layer. There were no ap parent complications. The estimated blood loss was less than 20 mL There were no apparent complications. The device was programmed to the final desired settings and the patient was transferred to his room in stable condition. FINAL SETTINGS FOR THE DEVICE: Mode for pacing AAI with VVI backup. The output will be 3. 5 volts at 0.4 milliseconds in both the right atrium and right ventricle with a sensitivity of 0.5 millivolts in the atrium and 2.5 millivolts in the right ventricle. The lower rate w ill be 60 and upper rate 130 beats per minute. The paced AV delay will be 170 milliseconds and sensed AV delay 150 milliseconds. That AV delay resulted in the most narrow QRS comple x during ventricular pacing. The outputs will be 3.5 volts at 0.4 milliseconds in the atriu m and ventricle with a sensitivity of 0.5 millivolts in the atrium and 2.5 millivolts in the ventricle. Pacing and sensing will be bipolar in both chambers. FINAL IMPRESSION: Good pacing and sensing thresholds. Appropriate device function seen. RECOMMENDATIONS: Switch from atenolol to metoprolol and start with 50 mg per day. This wi ll be followed up by Dr. Godinez. FRANKO REINA MD Dictated by FRANKO REINA MD 06/21/2020 22:20:28 Transcribed on 06/21/2020 23:07:45 by bell job# [id number] Confirmation #: [id number] cc: SEKOU GODINEZ MD lan of Care - Iam Carbajal RN - 06/21/2020 10:14 PM PDT Problem: Adult Inpatient Plan of Care Goal: Absence of Hospital-Acquired Illness or Injury Outcome: Ongoing, progressing Call light within reach. Non-skid socks applied. Bed in lowest position. Problem: Device-Related Complication Risk (Cardiac Rhythm Management Device) Goal: Effective Device Function Outcome: Ongoing, progressing CXR shows pneumothorax. Repeat chest xr in the morning. Pt asymptomatic. Pt on 4L of oxyge n. rief Op Note - Franko Broderick MD - 06/21/2020 7:03 PM PDTHe has a small left apical pneumothorax that is co mpletely asymptomatic. It has increased minimally in the last 3-1/2 hours, but I explained that we should probably put him on oxygen and repeat the chest x-ray in the morning. He is agreeable. If all looks good in the morning, he will be sent home. Normal pacemaker functi on seen and the site looks good. Will be placed on metoprolol 50 mg/day. Continue other th erapy. lan of [facility] - Samantha Plaza RN - 06/21/2020 6:02 PM PDT Problem: Adult Inpatient Plan of Care Goal: Plan of Care Review Outcome: Ongoing, progressing Pt has walked and voided. Pt has yet to eat. PM insertion site c/d/I, mild pain per pt. Pe r xray pt has small pneumothorax on L, diminished lung sounds noted. Pt is asymptomatic. Pt is v pacing. Pt updated on xray and current plan. lan of [facility] - Patricia Murray ARNP - 06/21/2020 2:56 PM PDTPatient seen on 3 OP s/p [employer] DC PPM w/ Dr Reina w/ RV lead in the His bundle position. Uneventful immediate post-op course. Mr. Escobar has just returned from CXR. Some initial discomfort described primarily as localiz ed tightness abut the device insertion site, awaiting receipt of PO Tylenol. Incision line i s CDI with no signs of swelling, erythema, oozing or hematoma development. Farmers pham CDI. D evice check renetta be completed by Dr Reina prior to disposition - intra op RBBB appreciated - pending possible resolution, device may require optimization prior to disposition. CXR once posted to be reviewed by MD. Post-op instructions were discussed with the patient. Questions asked and answered with expressed understanding. Post op instructions and follow up plans i ncluded in AVS. Atenolol d/c and Metoprolol succinate at 50 mg once daily started. Amlodipin e discontinued. Patient is stable at this time with anticipated discharge later today pendin g achievement of discharge criteria, bedside device interrogation and MD review of post o perative imaging. JENNIFER Silva documented in t his encounter Plan of Treatment +--------+ + + + + | Date | Type | Specialty | Care Team | Description | +--------+ + + + + | 08/09/ | Office | Cardiology | Joseph Claire | | | 2019 | Visit | | MIRELL[address] | | | | | | [address] | | | | | | [place] [address] | | | | | | [phone] | | | | | | | | +--------+ + + + + | 08/09/ | Procedure | Cardiology | | | | 2019 | visit | | | | +--------+ + + + + | 10/19/ | Office | Cardiology | Sekou Godinez, | | | 2019 | Visit | | MD [address] | | | | | | [place] | | | | | | [id number] | | | | | | | | +--------+ + + + + + + +--------+ + + | Name | Type | Priori | Associated Diagnoses | Date/Time | | | | ty | | | + + +--------+ + + | CV EP Procedure | Electrophys | Routin | AV heart block | 06/21/2020 2:01 PM | | | iology | e | | PDT | + + +--------+ + + documented as of this encounter Procedures + +--------+ + + + | Procedure Name | Priori | Date/Time | Associated Diagnosis | Comments | | | ty | | | | + +--------+ + + + | XR CHEST INSPIRATION | JOSHUA | 06/23/2020 | | Results for this | | AND EXPIRATION | | 9:09 AM | | procedure are in the | | | | PDT | | results section. | + +--------+ + + + | XR CHEST AP PORTABLE | Routin | 06/22/2020 | | Results for this | | | e | 5:15 PM | | procedure are in the | | | | PDT | | results section. | + +--------+ + + + | XR CHEST AP PORTABLE | Routin | 06/22/2020 | | Results for this | | | e | 2:20 PM | | procedure are in the | | | | PDT | | results section. | + +--------+ + + + | XR CHEST AP PORTABLE | Routin | 06/22/2020 | | Results for this | | | e | 10:53 AM | | procedure are in the | | | | PDT | | results section. | + +--------+ + + + | IR DRAINAGE SOFT | Routin | 06/22/2020 | | Results for this | | TISSUE VIA CATH | e | 8:14 AM | | procedure are in the | | PLACEMENT | | PDT | | results section. | + +--------+ + + + | XR CHEST PA AND | Routin | 06/22/2020 | | Results for this | | LATERAL | e | 7:29 AM | | procedure are in the | | | | PDT | | results section. | + +--------+ + + + | XR CHEST PA AND | Routin | 06/21/2020 | | Results for this | | LATERAL | e | 6:03 PM | | procedure are in the | | | | PDT | | results section. | + +--------+ + + + | XR CHEST PA AND | Routin | 06/21/2020 | | Results for this | | LATERAL | e | 2:44 PM | | procedure are in the | | | | PDT | | results section. | + +--------+ + + + | CV EP PROCEDURE | Routin | 06/21/2020 | AV heart block | | | | e | 2:01 PM | | | | | | PDT | | | + +--------+ + + + | CBC WITH | STAT | 06/21/2020 | | Results for this | | DIFFERENTIAL | | 11:45 AM | | procedure are in the | | | | PDT | | results section. | + +--------+ + + + | COMPREHENSIVE | STAT | 06/21/2020 | | Results for this | | METABOLIC PANEL | | 11:45 AM | | procedure are in the | | | | PDT | | results section. | + +--------+ + + + documented in this encounter Results XR Chest Inspiration and Expiration (06/23/2020 9:09 AM PDT) + + | Specimen | + + | | + + + + + | Impressions | Performed At | + + + | No pneumothorax status post removal of chest tube. Final | [facility] | | Report Signed by: Kam Millan, Rohit Sign Date/Time: 06/23/2020 | | | 9:28 AM | | + + + + + + | Narrative | Performed At | + + + | XR CHEST INSPIRATION AND EXPIRATION CLINICAL INFORMATION: | [facility] | | Status post chest tube removal. COMPARISON: XR CHEST AP PORTABLE | | | (06/22/2020); XR CHEST AP PORTABLE (06/22/2020); XR CHEST AP PORTABLE | | | (06/22/2020); FINDINGS: Cardiac silhouette is stable pacemaker is | | | in stable position. There is been interval remove mint of the | | | pigtail chest tube. No pneumothorax. | | + + + + + | Procedure Note | + + | Richard, [id number] - 06/23/2020 9:32 AM PDT | | XR CHEST INSPIRATION AND EXPIRATION | | | | CLINICAL INFORMATION: | | Status post chest tube removal. | | | | COMPARISON: | | XR CHEST AP PORTABLE (06/22/2020); XR CHEST AP PORTABLE (06/22/2020); XR | | CHEST AP PORTABLE (06/22/2020); | | | | FINDINGS: | | Cardiac silhouette is stable pacemaker is in stable position. There is | | been interval remove mint of the pigtail chest tube. No pneumothorax. | | | | IMPRESSION: | | No pneumothorax status post removal of chest tube. | | | | | | | | Final Report Signed by: Kam Millan Richard | | Sign Date/Time: 06/23/2020 9:28 AM | + + + +---------+ + + | Performing | Address | City/State/Zipcode | Phone Number | | Organization | | | | + +---------+ + + | [facility] | | | | + +---------+ + + XR Chest AP Portable (06/22/2020 5:15 PM PDT) + + | Specimen | + + | | + + + + + | Impressions | Performed At | + + + | No significant pneumothorax with the chest tube clamped. | [facility] | | Final Report Signed by: Kam Millan, Rohit Villalba Date/Time: | | | 06/23/2020 7:55 AM | | + + + + + + | Narrative | Performed At | + + + | CHEST PORTABLE [facility] CLINICAL INFORMATION: Chest tube | [facility] | | clamped COMPARISON: Multiple radiographs earlier on the same day | | | FINDINGS: Cardiac silhouette is stable pacemaker is in stable | | | position. No pneumothorax status post chest tube clamping. Mild | | | hypoventilatory changes at the left lung base. | | + + + + + | Procedure Note | + + | Richard, [id number] - 06/23/2020 7:59 AM PDT | | CHEST PORTABLE [facility] | | | | CLINICAL INFORMATION: | | Chest tube clamped | | | | COMPARISON: | | Multiple radiographs earlier on the same day | | | | FINDINGS: | | Cardiac silhouette is stable pacemaker is in stable position. No | | pneumothorax status post chest tube clamping. Mild hypoventilatory | | changes at the left lung base. | | | | IMPRESSION: | | No significant pneumothorax with the chest tube clamped. | | | | | | | | Final Report Signed by: Kam Millan Richard | | Sign Date/Time: 06/23/2020 7:55 AM | + + + +---------+ + + | Performing | Address | City/State/Zipcode | Phone Number | | Organization | | | | + +---------+ + + | [facility] | | | | + +---------+ + + XR Chest AP Portable (06/22/2020 2:20 PM PDT) + + | Specimen | + + | | + + + + + | Impressions | Performed At | + + + | 1. Minimal left basilar platelike atelectasis. Lungs are otherwise | [facility] | | clear. 2. Left pleural catheter in expected position. No visible | | | pneumothorax. Final Report Signed by: Kam Kerns Isaac | | | Sign Date/Time: 06/22/2020 2:55 PM | | + + + + + + | Narrative | Performed At | + + + | CHEST PORTABLE ONE VIEW CLINICAL INFORMATION: Chest tube to | [facility] | | water seal. COMPARISON: XR CHEST AP PORTABLE (06/22/2020); IR | | | DRAINAGE SOFT TISSUE VIA CATH PLACEMENT (06/22/2020); XR CHEST PA AND | | | LATERAL (06/22/2020); FINDINGS: Left pacemaker with intact leads. | | | Heart size and mediastinal contours are normal. Left pleural | | | catheter in unchanged position. Minimal left basilar platelike | | | atelectasis. Lungs are otherwise clear. No visible pneumothorax. | | | No acute osseous abnormality. | | + + + + + | Procedure Note | + + | Richard, [id number] - 06/22/2020 2:59 PM PDT | | CHEST PORTABLE ONE VIEW | | | | CLINICAL INFORMATION: | | Chest tube to water seal. | | | | COMPARISON: | | XR CHEST AP PORTABLE (06/22/2020); IR DRAINAGE SOFT TISSUE VIA CATH | | PLACEMENT (06/22/2020); XR CHEST PA AND LATERAL (06/22/2020); | | | | FINDINGS: | | Left pacemaker with intact leads. | | | | Heart size and mediastinal contours are normal. | | | | Left pleural catheter in unchanged position. | | | | Minimal left basilar platelike atelectasis. Lungs are otherwise clear. | | | | No visible pneumothorax. | | | | No acute osseous abnormality. | | | | IMPRESSION: | | 1. Minimal left basilar platelike atelectasis. Lungs are otherwise | | clear. | | 2. Left pleural catheter in expected position. No visible pneumothorax. | | | | | | | | | | Final Report Signed by: Kam Kerns Isaac | | Sign Date/Time: 06/22/2020 2:55 PM | + + + +---------+ + + | Performing | Address | City/State/Zipcode | Phone Number | | Organization | | | | + +---------+ + + | [facility] | | | | + +---------+ + + XR Chest AP Portable (06/22/2020 10:53 AM PDT) + + | Specimen | + + | | + + + + + | Impressions | Performed At | + + + | 1. Post placement of pigtail drain with marked improvement of the | [facility] | | previously identified left apical pneumothorax. No significant | | | persistent pleural air Some residual infiltrate versus atelectasis | | | in the left mid lung, Final Report Signed by: Jonny | | | Oscar Humphrey Date/Time: 06/22/2020 11:15 AM | | + + + + + + | Narrative | Performed At | + + + | CHEST PORTABLE ONE VIEW CLINICAL INFORMATION: Status post | [facility] | | chest tube. COMPARISON: IR DRAINAGE SOFT TISSUE VIA CATH | | | PLACEMENT (06/22/2020); XR CHEST PA AND LATERAL (06/22/2020); XR CHEST | | | PA AND LATERAL (06/21/2020); XR CHEST PA AND LATERAL (06/21/2020); | | | FINDINGS: Stable mediastinum without deviation midline structures | | | Pigtail drain, left hemithorax-with parenchymal changes in the | | | peripheral left mid lung. The pleural air previously seen is much | | | improved, now absent Pacing system with device, left chest The | | | right lung is clear Stable skeleton | | + + + + + | Procedure Note | + + | Richard, [id number] - 06/22/2020 11:18 AM PDT | | CHEST PORTABLE ONE VIEW | | | | CLINICAL INFORMATION: | | Status post chest tube. | | | | COMPARISON: | | IR DRAINAGE SOFT TISSUE VIA CATH PLACEMENT (06/22/2020); XR CHEST PA AND | | LATERAL (06/22/2020); XR CHEST PA AND LATERAL (06/21/2020); XR CHEST PA | | AND LATERAL (06/21/2020); | | | | FINDINGS: | | Stable mediastinum without deviation midline structures | | | | Pigtail drain, left hemithorax-with parenchymal changes in the | | peripheral left mid lung. The pleural air previously seen is much | | improved, now absent | | | | Pacing system with device, left chest | | | | The right lung is clear | | Stable skeleton | | | | IMPRESSION: | | 1. Post placement of pigtail drain with marked improvement of the | | previously identified left apical pneumothorax. No significant | | persistent pleural air | | | | Some residual infiltrate versus atelectasis in the left mid lung, | | | | | | | | Final Report Signed by: Kam Fuller Timothy | | Sign Date/Time: 06/22/2020 11:15 AM | + + + +---------+ + + | Performing | Address | City/State/Zipcode | Phone Number | | Organization | | | | + +---------+ + + | [facility] | | | | + +---------+ + + IR Drainage Soft Tissue via Cath Placement (06/22/2020 8:14 AM PDT) + + | Specimen | + + | | + + + + + | Impressions | Performed At | + + + | Successful fluoroscopically guided left chest tube placement for | [facility] | | pneumothorax. Plan: Will start patient on wall suction with | [facility] and hopefully | | | clamping trial is later today. Final Report Signed by: | | | Kam Millan, Rohit Sign Date/Time: 06/22/2020 9:41 AM | | + + + + + + | Narrative | Performed At | + + + | FLUOROSCOPICALLY GUIDED LEFT CHEST TUBE PLACEMENT. CLINICAL | [facility] | | INFORMATION: Left pneumothorax status post pacemaker placement. | | | COMPARISON: XR CHEST PA AND LATERAL (06/22/2020); XR CHEST PA AND | | | LATERAL (06/21/2020); XR CHEST PA AND LATERAL (06/21/2020); | | | PROCEDURE: The risks, benefits and alternatives were discussed with | | | the patient; consent was obtained and placed in the patient's chart. | | | The risks included but were not limited to puncture site bleeding, | | | stroke, kidney failure, allergic reaction and . The left | | | chest is prepped and draped in usual sterile fashion. A spot is | | | chosen the mid axillary line. Following local anesthesia the left | | | pleural spaces accessed with an 18 gauge needle confirmation of needle | | | positioning is confirmed with aspiration of air. A guidewire is | | | advanced anteriorly into the left chest and a 10 Filipino pigtail chest | | | tube is placed over the wire into the pleural space. The chest tube | | | is connected to Pleur-evac and 20 cm water section. The tube was | | | secured in position with silk suture. Maximum sterile barrier | | | techniques taken. All staff present in the room performed hand | | | hygiene prior to the procedure. There were no immediate | | | complications following the procedure. Estimated blood loss: Minimal. | | | Fluoro Time: 0.3 minutes. Radiation dose: 2 mGy Contrast: | | | None Conscious sedation was administered. The nurse administered | | | 1 mg Versed and 50 mcg fentanyl s during the examination and | | | monitored blood pressure, heart rate, and pulse oximeter. Physician | | | intraservice time of 6 minutes. A permanent sonographic recording | | | was created for the patient's record. FINDINGS: Fluoroscopic | | | image shows the chest tube positioned in the left pleural space. | | + + + + + | Procedure Note | + + | Richard, [id number] - 06/22/2020 9:45 AM PDT | | FLUOROSCOPICALLY GUIDED LEFT CHEST TUBE PLACEMENT. | | | | CLINICAL INFORMATION: | | Left pneumothorax status post pacemaker placement. | | | | COMPARISON: | | XR CHEST PA AND LATERAL (06/22/2020); XR CHEST PA AND LATERAL | | (06/21/2020); XR CHEST PA AND LATERAL (06/21/2020); | | | | PROCEDURE: | | The risks, benefits and alternatives were discussed with the patient; | | consent was obtained and placed in the patient's chart. The risks | | included but were not limited to puncture site bleeding, stroke, kidney | | failure, allergic reaction and . | | | | The left chest is prepped and draped in usual sterile fashion. A spot | | is chosen the mid axillary line. Following local anesthesia the left | | pleural spaces accessed with an 18 gauge needle confirmation of needle | | positioning is confirmed with aspiration of air. A guidewire is | | advanced anteriorly into the left chest and a 10 Filipino pigtail chest | | tube is placed over the wire into the pleural space. The chest tube is | | connected to Pleur-evac and 20 cm water section. The tube was secured | | in position with silk suture. | | | | Maximum sterile barrier techniques taken. All staff present in the room | | performed hand hygiene prior to the procedure. | | | | There were no immediate complications following the procedure. | | Estimated blood loss: Minimal. | | | | Fluoro Time: 0.3 minutes. | | Radiation dose: 2 mGy | | | | Contrast: None | | | | Conscious sedation was administered. The nurse administered 1 mg | | Versed and 50 mcg fentanyl s during the examination and monitored blood | | pressure, heart rate, and pulse oximeter. Physician intraservice time | | of 6 minutes. | | | | A permanent sonographic recording was created for the patient's record. | | | | FINDINGS: | | Fluoroscopic image shows the chest tube positioned in the left pleural | | space. | | | | IMPRESSION: | | Successful fluoroscopically guided left chest tube placement for | | pneumothorax. | | | | Plan: Will start patient on wall suction with planned to go to | | waterseal 1 pneumothorax resolves and hopefully clamping trial is later | | today. | | | | | | | | Final Report Signed by: Kam Millan Richard | | Sign Date/Time: 06/22/2020 9:41 AM | + + + +---------+ + + | Performing | Address | City/State/Zipcode | Phone Number | | Organization | | | | + +---------+ + + | [facility] | | | | + +---------+ + + XR Chest PA and Lateral (06/22/2020 7:29 AM PDT) + + | Specimen | + + | | + + + + + | Impressions | Performed At | + + + | *Vzsks-wo-qecbavwd left pneumothorax, mildly increased as compared | [facility] | | to radiographs dated 06/21/2020. *Ill-defined opacities in lingular | | | segment of left upper lobe and right lower lobe, new/increased as | | | compared to radiographs dated 06/21/2020 could represent atelectasis | | | and/or pneumonia. Final Report Signed by: Kam Darnell, | | | Layne Sign Date/Time: 06/22/2020 7:50 AM | | + + + + + + | Narrative | Performed At | + + + | CHEST PA AND LATERAL CLINICAL INFORMATION: Follow-up left | [facility] | | apical pneumothorax. COMPARISON: XR CHEST PA AND LATERAL | | | (06/21/2020); XR CHEST PA AND LATERAL (06/21/2020); FINDINGS: | | | Normal cardiac size. Aortic atherosclerosis. Dual lead cardiac | | | pacer in-situ. Ill-defined patchy opacity in lingular segment of | | | the left upper lobe partial obscuration of left cardiac border, new | | | as compared to radiographs dated 06/21/2020. Subtle ill-defined | | | right basilar opacities, mildly increased as compared to radiographs | | | dated 06/21/2020. Small to moderate left pneumothorax, mildly | | | increased as compared to radiographs dated 06/21/2020. The apical | | | pleural separation measures approximately 5.8 cm, previously measured | | | approximately 4.8 cm. No right pneumothorax. No pleural | | | effusion. No acute osseous abnormality. | | + + + + + | Procedure Note | + + | Richard, [id number] - 06/22/2020 7:54 AM PDT | | CHEST PA AND LATERAL | | | | CLINICAL INFORMATION: | | Follow-up left apical pneumothorax. | | | | COMPARISON: | | XR CHEST PA AND LATERAL (06/21/2020); XR CHEST PA AND LATERAL | | (06/21/2020); | | | | FINDINGS: | | Normal cardiac size. Aortic atherosclerosis. Dual lead cardiac pacer | | in-situ. Ill-defined patchy opacity in lingular segment of the left | | upper lobe partial obscuration of left cardiac border, new as compared | | to radiographs dated 06/21/2020. Subtle ill-defined right basilar | | opacities, mildly increased as compared to radiographs dated 06/21/2020. | | Small to moderate left pneumothorax, mildly increased as compared to | | radiographs dated 06/21/2020. The apical pleural separation measures | | approximately 5.8 cm, previously measured approximately 4.8 cm. No | | right pneumothorax. No pleural effusion. No acute osseous abnormality. | | | | | | IMPRESSION: | | *Kjhcn-xx-vbidgott left pneumothorax, mildly increased as compared to | | radiographs dated 06/21/2020. | | *Ill-defined opacities in lingular segment of left upper lobe and right | | lower lobe, new/increased as compared to radiographs dated 06/21/2020 | | could represent atelectasis and/or pneumonia. | | | | | | | | | | Final Report Signed by: Kam Darnell Pushpender | | Sign Date/Time: 06/22/2020 7:50 AM | + + + +---------+ + + | Performing | Address | City/State/Zipcode | Phone Number | | Organization | | | | + +---------+ + + | [facility] | | | | + +---------+ + + XR Chest PA and Lateral (06/21/2020 6:03 PM PDT) + + | Specimen | + + | | + + + + + | Impressions | Performed At | + + + | Mild left apical pneumothorax that has minimally progressed from the | [facility] | | previous examination. Findings were discussed with Dr. Hussein gauthier | | | prior to dictation. Final Report Signed by: Airam Duncan, | | | Victor Manuel Sign Date/Time: 06/21/2020 6:50 PM | | + + + + + + | Narrative | Performed At | + + + | CHEST PA AND LATERAL CLINICAL INFORMATION: Shortness of | [facility] | | breath. COMPARISON: XR CHEST PA AND LATERAL (06/21/2020); | | | FINDINGS: Heart is normal in size. Mild tortuosity of the thoracic | | | aorta. Left apical pneumothorax measuring 2.9 cm which measured 2.8 | | | previously. No focal airspace disease or pleural effusion. | | + + + + + | Procedure Note | + + | Richard, [id number] - 06/21/2020 6:54 PM PDT | | CHEST PA AND LATERAL | | | | CLINICAL INFORMATION: | | Shortness of breath. | | | | COMPARISON: | | XR CHEST PA AND LATERAL (06/21/2020); | | | | FINDINGS: | | Heart is normal in size. Mild tortuosity of the thoracic aorta. Left | | apical pneumothorax measuring 2.9 cm which measured 2.8 previously. | | | | No focal airspace disease or pleural effusion. | | | | IMPRESSION: | | Mild left apical pneumothorax that has minimally progressed from the | | previous examination. Findings were discussed with Dr. Reina just | | prior to dictation. | | | | | | | | Final Report Signed by: Airam Duncan Chet | | Sign Date/Time: 06/21/2020 6:50 PM | + + + +---------+ + + | Performing | Address | City/State/Zipcode | Phone Number | | Organization | | | | + +---------+ + + | [facility] | | | | + +---------+ + + XR Chest PA and Lateral (06/21/2020 2:44 PM PDT) + + | Specimen | + + | | + + + + + | Impressions | Performed At | + + + | Small left apical and subpulmonic left pneumothorax. The | [facility] | | findings will be called to the referring clinician. Final | | | Report Signed by: Kam Lacy Robert Sign Date/Time: 06/21/2020 | | | 3:53 PM | | + + + + + + | Narrative | Performed At | + + + | CHEST PA AND LATERAL CLINICAL INFORMATION: Shortness of | [facility] | | breath, status post cardiac device placement. COMPARISON: None | | | FINDINGS: There is a cardiac pacing device of the left chest wall. | | | This demonstrates 2 intact leads terminating in the region of the | | | right atrium and right ventricle. Mild atherosclerotic | | | calcification and ectasia of the thoracic aorta. Normal heart size. | | | Mediastinal contours and pulmonary vessels are within normal | | | limits. There is a small left apical and subpulmonic pneumothorax. | | | The lungs are clear otherwise. Bones and soft tissues are | | | unremarkable. | | + + + + + | Procedure Note | + + | Richard, [id number] - 06/21/2020 3:56 PM PDT | | CHEST PA AND LATERAL | | | | CLINICAL INFORMATION: | | Shortness of breath, status post cardiac device placement. | | | | COMPARISON: | | None | | | | FINDINGS: | | There is a cardiac pacing device of the left chest wall. This | | demonstrates 2 intact leads terminating in the region of the right | | atrium and right ventricle. Mild atherosclerotic calcification and | | ectasia of the thoracic aorta. Normal heart size. Mediastinal contours | | and pulmonary vessels are within normal limits. There is a small left | | apical and subpulmonic pneumothorax. The lungs are clear otherwise. | | Bones and soft tissues are unremarkable. | | | | IMPRESSION: | | Small left apical and subpulmonic left pneumothorax. | | | | The findings will be called to the referring clinician. | | | | | | | | Final Report Signed by: Kam Lacy Robert | | Sign Date/Time: 06/21/2020 3:53 PM | + + + +---------+ + + | Performing | Address | City/State/Zipcode | Phone Number | | Organization | | | | + +---------+ + + | [facility] | | | | + +---------+ + + Comprehensive Metabolic Panel (06/21/2020 11:45 AM PDT) + + + + + + | Component | Value | Ref Range | Performed | Pathologist | | | | | At | Signature | + + + + + + | Na | 142 | 135 - 145 | [facility] | | | | | mmol/L | LABORATORY | | + + + + + + | K | 3.8 | 3.5 - 4.9 | [facility] | | | | | mmol/L | LABORATORY | | + + + + + + | Cl | 108 | 99 - 109 mmol/L | [facility] | | | | | | LABORATORY | | + + + + + + | CO2 | 24 | 23 - 32 mmol/L | [facility] | | | | | | LABORATORY | | + + + + + + | Anion Gap | 14 | 5 - 20 mmol/L | [facility] | | | | | | LABORATORY | | + + + + + + | Glucose | 87 | 65 - 99 mg/dL | [facility] | | | | | | LABORATORY | | + + + + + + | BUN | 10 | 8 - 25 mg/dL | [facility] | | | | | | LABORATORY | | + + + + + + | Creatinine | 1.04 | 0.70 - 1.30 | [facility] | | | | | mg/dL | LABORATORY | | + + + + + + | BUN/Creatin | 10 | | [facility] | | | ine Ratio | | | LABORATORY | | + + + + + + | Calcium | 9.2 | 8.5 - 10.5 | [facility] | | | | | mg/dL | LABORATORY | | + + + + + + | Protein, | 6.9 | 6.3 - 8.2 g/dL | [facility] | | | Total | | | LABORATORY | | + + + + + + | Albumin | 4.7 | 3.3 - 4.8 g/dL | [facility] | | | | | | LABORATORY | | + + + + + + | Globulin | 2.2 | 1.3 - 4.9 g/dL | [facility] | | | | | | LABORATORY | | + + + + + + | A/G Ratio | 2.1 | 1.0 - 2.4 | [facility] | | | | | | LABORATORY | | + + + + + + | BILIRUBIN, | 1.0 | 0.1 - 1.5 mg/dL | [facility] | | | TOTAL | | | LABORATORY | | + + + + + + | ALK PHOS | 67 | 35 - 115 U/L | [facility] | | | | | | LABORATORY | | + + + + + + | AST | 21 | 10 - 45 U/L | [facility] | | | | | | LABORATORY | | + + + + + + | ALT | 15 | 10 - 65 U/L | [facility] | | | | | | LABORATORY | | + + + + + + | Estimated | >60Comment: GFR <60: | >60 | [facility] | | | GFR | CHRONIC KIDNEY DISEASE, | mL/min/1.73m2 | LABORATORY | | | | IF FOUND OVER A 3 MONTH | | | | | | PERIOD.GFR <15: KIDNEY | | | | | | FAILURE.FOR | | | | | | AMERICANS, MULTIPLY THE | | | | | | CALCULATED GFR BY | | | | | | 1.210.This eGFR is | | | | | | calculated using the | | | | | | MDRD IDMS traceable | | | | | | equation.Testing | | | | | | performed at [facility];[address] | | | | | | [address];[place] | | | | | | [id number] | | | | + + + + + + + + | Specimen | + + | Blood | + + + + + + + | Performing | Address | City/State/Zipcode | Phone Number | | Organization | | | | + + + + + | [facility] | [address] | [place] [address] | [phone] | + + + + + CBC with Differential (06/21/2020 11:45 AM PDT) + + + + + + | Component | Value | Ref Range | Performed | Pathologist | | | | | At | Signature | + + + + + + | WBC | 7.76 | 3.80 - 11.00 | [facility] | | | | | K/uL | LABORATORY | | + + + + + + | Red Blood | 4.40 | 4.20 - 5.70 | [facility] | | | Cells | | M/uL | LABORATORY | | + + + + + + | Hemoglobin | 15.1 | 13.2 - 17.0 | [facility] | | | | | g/dL | LABORATORY | | + + + + + + | Hematocrit | 43.1 | 39.0 - 50.0 % | [facility] | | | | | | LABORATORY | | + + + + + + | MCV | 98.0 | 80.0 - 100.0 fl | [facility] | | | | | | LABORATORY | | + + + + + + | MCH | 34.3 (H) | 27.0 - 34.0 pg | [facility] | | | | | | LABORATORY | | + + + + + + | MCHC | 35.0 | 32.0 - 35.5 | [facility] | | | | | g/dL | LABORATORY | | + + + + + + | RDW-SD | 44.9 | 37 - 53 fl | [facility] | | | | | | LABORATORY | | + + + + + + | Platelet | 258 | 150 - 400 K/uL | [facility] | | | Count | | | LABORATORY | | + + + + + + | MPV | 10.2Comment: NO NORMAL | fl | [facility] | | | | RANGE ESTABLISHED | | LABORATORY | | + + + + + + | Diff Type | AUTOMATED | | [facility] | | | | | | LABORATORY | | + + + + + + | % nRBC | 0.0 | 0 /100WBC | [facility] | | | | | | LABORATORY | | + + + + + + | % | 54.10 | % | [facility] | | | Neutrophils | | | LABORATORY | | + + + + + + | IMMATURE | 0.30 | % | [facility] | | | GRANULOCYTE | | | LABORATORY | | + + + + + + | % | 37.00 | % | [facility] | | | Lymphocytes | | | LABORATORY | | + + + + + + | Monocyte % | 6.80 | % | [facility] | | | | | | LABORATORY | | + + + + + + | Eosinophils | 1.00 | % | [facility] | | | % | | | LABORATORY | | + + + + + + | Basophils % | 0.80 | % | [facility] | | | | | | LABORATORY | | + + + + + + | Neutrophils | 4.20 | 1.90 - 7.40 | [facility] | | | , Absolute | | K/uL | LABORATORY | | + + + + + + | IMMATURE | 0.02Comment: NOTE NEW | 0.00 - 0.07 | [facility] | | | GRANS AB | REFERENCE RANGE | K/uL | LABORATORY | | + + + + + + | Absolute | 2.87 | 1.00 - 3.90 | [facility] | | | Lymphocytes | | K/uL | LABORATORY | | + + + + + + | Absolute | 0.53 | 0.00 - 0.80 | [facility] | | | Monocytes | | K/uL | LABORATORY | | + + + + + + | Eosinophils | 0.08 | 0.00 - 0.50 | [facility] | | | , Absolute | | K/uL | LABORATORY | | + + + + + + | Basophils, | 0.06Comment: Testing | 0.00 - 0.10 | [facility] | | | Absolute | performed at [facility];[address] | [address] | LABORATORY | | | | [address];[place] | | | | | | [address] | | | | + + + + + + + + | Specimen | + + | Blood | + + + + + + + | Performing | Address | City/State/Zipcode | Phone Number | | Organization | | | | + + + + + | [facility] | [address] | [place] [address] | [phone] | + + + + + documented in this encounter Visit Diagnoses + + | Diagnosis | + + | AV heart block Atrioventricular block, unspecified | + + | Sinus arrest Other heart block | + + | Pneumothorax on left Other pneumothorax | + + documented in this encounter Admitting Diagnoses + + | Diagnosis | + + | AV heart block Atrioventricular block, unspecified | + + documented in this encounter Administered Medications + +--------+ + +------+------+ | Medication Order | MAR | Action | Dose | Rate | Site | | | Action | Date | | | | + +--------+ + +------+------+ | acetaminophen (TYLENOL) tablet | Given | 06/21/20 | 1,000 mg | | | | 1,000 mg 1,000 mg, Oral, ONCE, | | 20 4:19 | | | | | Sun06/21/20 at 1445, For 1 dose | | PM PDT | | | | + +--------+ + +------+------+ +---+---+ | | | +---+---+ + +-------+ +--------+---+---+ | acetaminophen (TYLENOL) tablet | Given | 06/23/20 | 650 mg | | | | 650 mg 650 mg, Oral, EVERY 4 | | 20 12:25 | | | | | HOURS, First dose (after last | | PM PDT | | | | | reorder) on Sun06/21/20 at 2230, | | | | | | | Post-op/Phase II | | | | | | + +-------+ +--------+---+---+ +-------+ +--------+---+---+ | Given | 06/23/20 | 650 mg | | | | | 20 7:55 | | | | | | AM PDT | | | | +-------+ +--------+---+---+ | Given | 06/22/20 | 650 mg | | | | | 20 11:48 | | | | | | PM PDT | | | | +-------+ +--------+---+---+ +---+---+ | | | +---+---+ + +-------+ +------+---+---+ | amLODIPine (NORVASC) tablet 5 | Given | 06/23/20 | 5 mg | | | | mg 5 mg, Oral, DAILY, First dose | | 20 7:55 | | | | | on Sun06/23/20 at 0800 | | AM PDT | | | | + +-------+ +------+---+---+ +---+---+ | | | +---+---+ + +-------+ +-------+---+---+ | atorvaSTATin (LIPITOR) tablet | Given | 06/22/20 | 40 mg | | | | 40 mg 40 mg, Oral, NIGHTLY, | | 20 8:17 | | | | | First dose on Sun06/21/20 at | | PM PDT | | | | | 2100, Recovery/Phase I | | | | | | + +-------+ +-------+---+---+ +-------+ +-------+---+---+ | Given | 06/21/20 | 40 mg | | | | | 20 9:38 | | | | | | PM PDT | | | | +-------+ +-------+---+---+ +---+---+ | | | +---+---+ + +---------+ +-----+---+---+ | ceFAZolin in dextrose (ANCEF, | New Bag | 06/22/20 | 2 g | | | | KEFZOL) IVPB Administer over 30 | | 20 8:39 | | | | | Minutes, CONTINUOUS PRN, Starting | | AM PDT | | | | | 06/22/20 at 0839 | | | | | | + +---------+ +-----+---+---+ +---+---+ | | | +---+---+ + +-------+ +--------+---+---+ | fentaNYL (PF) injection | Given | 06/22/20 | 50 mcg | | | | Intravenous, PRN, Starting Tue | | 20 8:39 | | | | | 06/22/20 at 0839 | | AM PDT | | | | + +-------+ +--------+---+---+ +---+---+ | | | +---+---+ + +-------+ +--------+---+---+ | levothyroxine (SYNTHROID) | Given | 06/23/20 | 50 mcg | | | | tablet 50 mcg 50 mcg, Oral, | | 20 7:54 | | | | | DAILY BEFORE BREAKFAST, First | | AM PDT | | | | | dose on 06/21/20 at 1445, Give | | | | | | | before breakfast., | | | | | | + +-------+ +--------+---+---+ +-------+ +--------+---+---+ | Given | 06/22/20 | 50 mcg | | | | | 20 9:41 | | | | | | AM PDT | | | | +-------+ +--------+---+---+ | Given | 06/21/20 | 50 mcg | | | | | 20 4:20 | | | | | | PM PDT | | | | +-------+ +--------+---+---+ +---+---+ | | | +---+---+ + +-------+ +--------+---+---+ | losartan (COZAAR) tablet 100 mg | Given | 06/22/20 | 100 mg | | | | 100 mg, Oral, NIGHTLY, First | | 20 9:33 | | | | | dose on Sun06/22/20 at 2045 | | PM PDT | | | | + +-------+ +--------+---+---+ + +---+ | | | + +---+ | melatonin tablet 3 mg 3 mg, | | | Oral, NIGHTLY PRN, Insomnia, | | | Starting 06/21/20 at 1938, | | | Recovery/Phase I | | + +---+ | | | + +---+ + +-------+ +--------+---+---+ | metoprolol succinate | Given | 06/23/20 | 100 mg | | | | (TOPROL-XL) ER tablet 100 mg 100 | | 20 7:55 | | | | | mg, Oral, DAILY, First dose | | AM PDT | | | | | (after last modification) on Wed | | | | | | | 06/23/20 at 0900, Tablet may be | | | | | | | cut where scored but do not | | | | | | | crush., | | | | | | + +-------+ +--------+---+---+ +---+---+ | | | +---+---+ + +-------+ +-------+---+---+ | metoprolol succinate | Given | 06/22/20 | 50 mg | | | | (TOPROL-XL) ER tablet 50 mg 50 | | 20 9:41 | | | | | mg, Oral, DAILY, First dose on | | AM PDT | | | | | 06/21/20 at 1445, Tablet may | | | | | | | be cut where scored but do not | | | | | | | crush., | | | | | | + +-------+ +-------+---+---+ +-------+ +-------+---+---+ | Given | 06/21/20 | 50 mg | | | | | 20 4:20 | | | | | | PM PDT | | | | +-------+ +-------+---+---+ +---+---+ | | | +---+---+ + +-------+ +------+---+---+ | midazolam (VERSED) 1 mg/mL | Given | 06/22/20 | 1 mg | | | | injection Intravenous, PRN, | | 20 8:39 | | | | | Starting 06/22/20 at 0839 | | AM PDT | | | | + +-------+ +------+---+---+ +---+---+ | | | +---+---+ + +-------+ + +---+---+ | oxyCODONE-acetaminophen | Given | 06/22/20 | 1 tablet | | | | (PERCOCET) 5-325 mg per tablet 1 | | 20 12:40 | | | | | tablet 1 tablet, Oral, EVERY 4 | | PM PDT | | | | | HOURS PRN, Pain, Starting Tue | | | | | | | 06/22/20 at 1206 | | | | | | + +-------+ + +---+---+ +---+---+ | | | +---+---+ + +-------+ +-------+---+---+ | pantoprazole (PROTONIX) DR | Given | 06/23/20 | 40 mg | | | | tablet 40 mg 40 mg, Oral, DAILY | | 20 7:55 | | | | | BEFORE BREAKFAST, First dose on | | AM PDT | | | | | 06/21/20 at 1445, Indication: | | | | | | | GERD | | | | | | + +-------+ +-------+---+---+ +-------+ +-------+---+---+ | Given | 06/22/20 | 40 mg | | | | | 20 9:40 | | | | | | AM PDT | | | | +-------+ +-------+---+---+ | Given | 06/21/20 | 40 mg | | | | | 20 4:20 | | | | | | PM PDT | | | | +-------+ +-------+---+---+ +---+---+ | | | +---+---+ + +-------+ +--------+---+---+ | potassium chloride (KLOR-CON) | Given | 06/23/20 | 40 mEq | | | | ER tablet 40 mEq 40 mEq, Oral, | | 20 7:55 | | | | | ONCE, 06/23/20 at 0645, For 1 | | AM PDT | | | | | dose, May take with food to | | | | | | | decrease GI upset., | | | | | | + +-------+ +--------+---+---+ +---+---+ | | | +---+---+ + +-------+ +-------+---+---+ | povidone-iodine 5 % external | Given | 06/21/20 | 4 mLs | | | | solution Topical, PRN, Other, | | 20 11:37 | | | | | pre-op, Starting 06/21/20 at | | AM PDT | | | | | 1109, For 1 dose, Pre-op | | | | | | + +-------+ +-------+---+---+ +---+---+ | | | +---+---+ + +---------+ +---+-------+---+ | sodium chloride 0.9% (NS) | New Bag | 06/21/20 | | 100 | | | infusion at 100 mL/hr, | | 20 11:37 | | mL/hr | | | Intravenous, CONTINUOUS, Starting | | AM PDT | | | | | 06/21/20 at 1130, Pre-op | | | | | | + +---------+ +---+-------+---+ +---+---+ | | | +---+---+ + +-------+ + +---+---+ | vancomycin 1,000 mg in sodium | Given | 06/21/20 | 1,000 mg | | | | chloride (PF) 0.9% injection 20 | | 20 12:38 | | | | | mL irrigation syringe 1,000 mg, | | PM PDT | | | | | Irrigation, ONCE, 06/21/20 at | | | | | | | 1130, For 1 dose, For pocket at | | | | | | | time of closing., Pre-op | | | | | | + +-------+ + +---+---+ +---+---+ | | | +---+---+ + +---------+ +-------+--------+---+ | vancomycin in NS (VANCOCIN) | New Bag | 06/21/20 | 1.5 g | 166.7 | | | IVPB 1.5 g 1.5 g, Intravenous, | | 20 11:37 | | mL/hr | | | Administer over 90 Minutes, Prior | | AM PDT | | | | | to Incision, Starting Mon | | | | | | | 06/21/20 at 1108, For 1 dose, Keep | | | | | | | in refrigerator., Pre-op, | | | | | | | Indications: Surgical Prophylaxis | | | | | | + +---------+ +-------+--------+---+ +---+---+ | | | +---+---+ documented in this encounter
--- OUTSIDE RECORDS SUMMARY | ~2020-06-26 | XMS | Encounter Summary ---
Demographics + + + | Address | [address] | | | [place] [address] | + + + | Home Phone | | + + + | Preferred Language | Unknown | + + + | Marital Status | | + + + | Latter-Day Affiliation | Unknown | + + + | Race | Unknown | + + + | Ethnic Group | Unknown | + + + Author + + + | Author | [facility] | | | and [place] | + + + | Organization | [facility] | | | and [place] | + + + | Address | Unknown | + + + | Phone | Unavailable | + + + Support + + + + + | Name | Relationship | Address | Phone | + + + + + | Mark Escobar | [place] | [address] | | | | | [place] | | | | | [address] | | + + + + + Care Team Providers + +------+ + | Care Transmission Line Engineer Name | Role | Phone | + +------+ + | Maria C Cordova MD | PCP | | + +------+ + Encounter Details +--------+ + + + + | Date | Type | Department | Care Team | Description | +--------+ + + + + | 06/18/ | Clinical | [facility] | | Exposure to | | 2020 | Support | [facility] | | SARS-associated | | | | [address] | | coronavirus (Primary | | | | [address] | | Dx) | | | | [address] | | | | | | [phone] | | | +--------+ + + + [...] + + + | Blood Pressure | - | - | | + + + + + | Pulse | 56 | 06/18/2020 10:02 AM | | | | | PDT | | + + + + + | Temperature | 36.8 C (98.2 F) | 06/18/2020 10:02 AM | | | | | PDT | | + + + + + | Respiratory Rate | - | - | | + + + + + | Oxygen Saturation | 97% | 06/18/2020 10:02 AM | | | | | PDT | | + + + + + | Inhaled Oxygen | - | - | | | Concentration | | | | + + + + + | Weight | - | - | | + + + + + | Height | - | - | | + + + + + | Body Mass Index | - | - | | + + + + + documented in this encounter Plan of Treatment +--------+ + + + + | Date | Type | Specialty | Care Team | Description | +--------+ + + + + | 08/09/ | Office | Cardiology | Joseph Claire | | | 2020 | Visit | | MIRELLA [address] | | | | | | [address] | | | | | | [place] [address] | | | | | | [phone] | | | | | | | | +--------+ + + + + | 08/09/ | Procedure | Cardiology | | | | 2019 | visit | | | | +--------+ + + + + | 10/19/ | Office | Cardiology | Trevor Godinez, | | | 2019 | Visit | | MD Higinio SMITH | | | | | | [address] [place] | | | | | | [address] | | | | | | | | +--------+ + + + + documented as of this encounter Procedures + +--------+ + + + | Procedure Name | Priori | Date/Time | Associated Diagnosis | Comments | | | ty | | | | + +--------+ + + + | POC CORONAVIRUS | Routin | 06/18/2020 | Exposure to | Results for this | | (COVID-19) NAAT | e | 10:02 AM | SARS-associated | procedure are in the | | | | PDT | coronavirus | results section. | + +--------+ + + + documented in this encounter Results POC Coronavirus (COVID-19) NAAT (06/18/2020 10:02 AM PDT) + + + + + + | Component | Value | Ref Range | Performed | Pathologist | | | | | At | Signature | + + + + + + | POC SOURCE | [facility] | | | | + + + + + + | SARS | Negative | Negative | | | | coronavirus | | | | | | 2 RNA | | | | | | (POC) | | | | | + + + + + + | Internal QC | Acceptable | Acceptable | | | + + + + + + + + | Specimen | + + | Tissue - Entire | | nasopharynx (body | | structure) | + + + + + | Narrative | Performed At | + + + | SARS-CoV-2, RNA (COVID-19) EUA Negative results, using the | | | [employer] NOW Platform, should be treated as presumptive and, if | | | inconsistent with clinical signs and symptoms or necessary for patient | | | management, should be tested with an alternative molecular assay. | | | Please contact the laboratory for assistance as needed. Negative | | | results do not preclude COVID-19 infection and should not be used as | | | the sole basis for patient management decisions. Negative results | | | should be considered in the context of a patient's recent exposures, | | | history, presence of clinical signs and symptoms consistent with | | | COVID-19. This assay has been cleared for use under an FDA | | | Emergency Use Authorization. This test is used for clinical purposes. | | | It should not be regarded as investigational or for research. This | | | laboratory is certified under the Clinical Laboratory Improvement | | | Amendments (CLIA) as qualified to perform high complexity testing. | | | This test has been validated in accordance with the FDA's Guidance | | | Document "Policy for Diagnostics Testing in Laboratories Certified to | | | Perform High Complexity Testing under CLIA prior to Emergency Use | | | Authorization for Coronavirus Disease-2019 during the Public Health | | | Emergency" issued on January 10, 2020. FDA independent review of | | | this validation is pending. This test is only authorized for the | | | duration of time the declaration that circumstances exist justifying | | | the authorization of the emergency use of in vitro diagnostic tests | | | for detection of SARS-CoV-2 virus and/or diagnosis of COVID-19 | | | infection under section 564(b)(1) of the Act, 21 U.S.C. | | | 360bbb-3(b)(1), unless the authorization is terminated or revoked | | | sooner. | | + + + documented in this encounter Visit Diagnoses + + | Diagnosis | + + | Exposure to SARS-associated coronavirus - Primary | + + documented in this encounter
--- OUTSIDE RECORDS SUMMARY | ~2020-06-26 | XMS | Encounter Summary ---
Demographics + + + | Address | [address] | | | [place] [address] | + + + | Home Phone | | + + + | Preferred Language | Unknown | + + + | Marital Status | | + + + | Yarsanism Affiliation | Unknown | + + + | Race | Unknown | + + + | Ethnic Group | Unknown | + + + Author + + + | Author | [facility] | | | and [place] | + + + | Organization | [facility] | | | and [place] | + + + | Address | Unknown | + + + | Phone | Unavailable | + + + Support + + + + + | Name | Relationship | Address | Phone | + + + + + | Mark Escobar | [place] | [address] | | | | | [place] | | | | | [address] | | + + + + + Care Team Providers + +------+ + | Care Injection Moulding Machine Operator Name | Role | Phone | [...] | | | Diagnoses | | Franko Savage | | | | | AV heart | | MD Isaias | | | | | block | | [address] | | | | | Procedures | | [address] | | | | | [place] | | [place], [place] | | | | | NEW/RPLCMT | | [address] Phone: | | | | | PRM PM | | [phone] | | | | | W/TRANSV | | Fax: | | | | | ELTRD | | [phone] | | | | | ATRIAL&VENT | [...] + + + + | 06/21/ | Anesthesia | [facility] | Heidy Jacobsen, | | | 2019 | Event | [facility] | MD [address]j [address] | | | | | LAB [address] | [place] [address] | | | | | [place], [place] | [phone] | | | | | [address] | | | | | | [phone] | | | +--------+ + + + + Anesthesia Record + + + + + | Procedure Name | Responsible | Anesthesia Start | Anesthesia Stop Time | | | Anesthesiologist | Time | | + + + + + | CV EP PPM SYSTEM | Heidy Jacobsen MD | 06/21/20 1210 | 06/21/20 1401 | | IMPLANT (N/A Heart) | | | | + + + + + +----+---+ + + | Da | T | Event | Comment | | te | i | | | | | m | | | | | e | | | +----+---+ + + | 08 | 1 | An Start | Reassessment prior to anesthesia induction/procedure. | | /1 | 2 | | | | 0/ | 1 | | | | 20 | 0 | | | | 20 | | | | +----+---+ + + | | 1 | An | | | | 2 | Induction | | | | 2 | | | | | 7 | | | +----+---+ + + | | 1 | First | | | | 2 | Inc/Proc St | | | | 2 | | | | | 7 | | | +----+---+ + + | | 1 | Anesthesia | | | | 2 | Ready | | | | 2 | | | | | 8 | | | +----+---+ + + | | 1 | an stop | | | | 4 | data | | | | 0 | | | | | 1 | | | +----+---+ + + | | 1 | An Stop | Patient handed off to recovery nurse. | | | 0 | | | | | 1 | | | +----+---+ + + +------+ | Meds | +------+ + +---------+ | Name | Total | + +---------+ | fentaNYL | 100 mcg | + +---------+ | lidocaine 2% | 60 mg | + +---------+ | propofol | 50 mg | + +---------+ | sodium chloride 0.9% (NS) | 350 mL | | infusion | | + +---------+ + + | Name | + + | N2O Flow Rate (L/Min) | + + | O2 Flow Rate (L/Min) | + + | Insp O2 | + + | Exp N2O | + + | Air Flow Rate (L/Min) | + + + + | No blood administrations on file. | + + +--------+ + + + | Type | Details | Placement | Removal | +--------+ + + + | Wound | 06/21/20; 1237; Incision; Left; | 06/21/20 1237 by | | | | device implantation | Chu Jo RN | | +--------+ + + + | Periph | 06/21/20; 1130; Left; Distal; | 06/21/20 1130 by | 06/23/20 1221 by | | eral | Hand; [id number] catheter | Jessica Armstrong RN | Magalie White RN | | IV | system; 20 gauge; Hematology, | | | | | Chemistry; expected removal post | | | | | discharge; 06/23/20; 1221 | | | +--------+ + + + documented in this encounter Social History + +-------+ +--------+------+ | Tobacco [...] + + documented as of this encounter OR Notes Anesthesia Postprocedure Evaluation - Heidy Jacobsen MD - 06/21/2020 2:02 PM PDTFormatti ng of this note might be different from the original. ANESTHESIA POSTANESTHESIA EVALUATION Thomas Escobar 70 y.o. male 1950 [id number] Procedure(s) CV EP PPM SYSTEM IMPLANT (N/A Heart) Cooperates? Yes Mental Status Performs simple tasks. Respiratory Satisfactory - Airway patent (self maintained). Cardiovascular Satisfactory - Blood pressure and heart rate acceptable Temperature Satisfactory Pain Satisfactory N/V Control Satisfactory Hydration Satisfactory - No signs of dehydration Adverse Events ADVERSE EVENTS: No adverse events Vitals Value Taken Time Temp 36.6 C (97.8 F) 06/21/20 1401 Pulse 60 06/21/20 1401 Resp 12 06/21/20 1401 BP 155/81 06/21/20 1401 Arterial Line BP Arterial Line BP 2 SpO2 96 % 06/21/20 1401 Electronically signed by Heidy Jacobsen MD 06/21/2020 2:02 PM PDT [facility] nesthesia Preprocedure Evaluation - Heidy Jacobsen MD - 06/20/2020 6:49 PM PDT ANESTHESIA PREANESTHESIA EVALUATION Thomas Escobar 70 y.o. male 1950 [id number] Procedure(s): CV EP PPM SYSTEM IMPLANT (N/A ) Medical,anesthesia, drug, allergy histories reviewed, NPO status verified. ECG reviewed. Labs reviewed. (+) perioperative beta-aleks/statin given/taken. Review of Systems / Med History Cardiovascular Note from Dr. Godinez 06/15/20 EC06/15/2020 Ordered and reviewed by himself showed sinus bradycardia otherwise normal EKG. Last Echo:02/27/2020 Normal left ventricular size and function EF [...] bpm, occa sional PVC total burden of 2.55%.. (+) hypertension (+) Dysrhythmias: . Gastrointestinal/Hepatic (+) hypercholesterolemia. (+) acid reflux. Endocrine (+) hypothyroidism. Neuromuscular (+) history of headaches, back pain. Psychology (+) substance abuse, other, mJ. Additional Comments: 70 yo male with BMI 26, HTN, HLD, GERD, hypothyroidism, h/o depression w/ multiple episodes of syncope/pre-syncope found to have SSS on Holter monitor presents fo r PM placement Physical Exam Airway MP III, TM >3 FB, Mouth opening >2 FB. Neck: limited ROM, extends >30 degrees. Jaw pro trusion normal. Facial hair present: No CV Rhythm regular. Rate normal. Pulm Clear to auscultation bilaterally. Neuro grossly normal. Anesthesia Plan ASA: 3 Type: MAC. Plan moderate sedation, piv, with local by dairy equipment repairer Induction: Intravenous. Potential problems: None anticipated. Monitors: Standard ASA monitors. Consent statement: Anesthetic plan, alternatives, risks and benefits discussed with patient. , heart prob lems, ICU placement, pain, perioperative CV events, respiratory events, stroke Blood transfusion concerns: Consenting person understands and agrees to proceed. documented in this en counter Miscellaneous Notes Anesthesia Post-op Handoff - Heidy Jacobsen MD - 06/21/2020 2:01 PM PDTFormatting of thi s note might be different from the original. ANESTHESIA HANDOFF NOTE Thomas J Luz 70 y.o. male 1950 [id number] CV EP PPM SYSTEM IMPLANT (N/A Heart) HANDOFF NOTE Handoff Protocol Used: post-procedure handoff checklist completed The following were completed during the transfer of care: 1. Identification of patient 2. Identification of responsible practitioner (primary service) 3. Discussion of pertinent medical history 4. Discussion of the surgical/procedure course (procedure, reason for surgery, procedure pe rformed) 5. Intraoperative anesthetic management and issues/concerns 6. Expectations/plans for the early post-procedure period 7. Opportunity for questions and acknowledgement of understanding of report from receiving team Patient Location: Other (Bedside) Condition: awake and alert Airway/O2: no supplemental O2 Multimodal analgesia: multimodal analgesia used between 6 hours prior to anesthesia start t o PACU discharge Medical reason for not performing QUEENIE screening: No medical reason exists for NOT screening for QUEENIE The significant anesthesia concerns and VS in Epic were reviewed with the receiving team. Heidy Jacobsen MD 06/21/2020 2:01 PM PDT [facility] documented in this encounter Plan of Treatment +--------+ + + + + | Date | Type | Specialty | Care Team | Description | +--------+ + + + + | 08/09/ | Office | Cardiology | Joseph Claire | | 2019 | Visit | | MIRELLA [address] | | | | | | [address] | | | | | | [place] [address] | | | | | | [phone] | | | | | | | [...] [place] | | | | | | [address] | | | | | | | | +--------+ + + + + documented as of this encounter Visit Diagnoses Not on filedocumented in this encounter Administered Medications + +--------+ +--------+------+------+ | Medication Order | MAR | Action | Dose | Rate | Site | | | Action | Date | | | | + +--------+ +--------+------+------+ | fentaNYL (PF) injection | Given | 06/21/20 | 50 mcg | | | | Intravenous, PRN, Starting Mon | | 20 1:36 | | | | | 06/21/20 at 1235, Anesthesia | | PM PDT | | | | | Intra-op | | | | | | + +--------+ +--------+------+------+ +-------+ +--------+---+---+ | Given | 06/21/20 | 50 mcg | | | | | 20 12:35 | | | | | | PM PDT | | | | +-------+ +--------+---+---+ +---+---+ | | | +---+---+ + +-------+ +-------+---+---+ | lidocaine (PF) 2% injection | Given | 06/21/20 | 60 mg | | | | Intravenous, PRN, Starting Mon | | 20 12:27 | | | | | 06/21/20 at 1227, Anesthesia | | PM PDT | | | | | Intra-op | | | | | | + +-------+ +-------+---+---+ +---+---+ | | | +---+---+ + +-------+ +-------+---+---+ | propofol (DIPRIVAN) injection | Given | 06/21/20 | 50 mg | | | | Intravenous, PRN, Starting Mon | | 20 12:27 | | | | | 06/21/20 at 1227, Anesthesia | | PM PDT | | | | | Intra-op | | | | | | + +-------+ +-------+---+---+ +---+---+ | | | +---+---+ documented in this encounter"
--- OUTSIDE RECORDS SUMMARY | ~2020-06-26 | XMS | Clinical Summary ---
Demographics + + + | Address | [address] | | | [place] [address] | + + + | Home Phone | | + + + | Preferred Language | Unknown | + + + | Marital Status | | + + + | Baptism Affiliation | Unknown | + + + | Race | Unknown | + + + | Ethnic Group | Unknown | + + + Author + + + | Author | [facility] | | | and [place] | + + + | Organization | [facility] | | | and [place] | + + + | Address | Unknown | + + + | Phone | Unavailable | + + + Support + + + + + | Name | Relationship | Address | Phone | + + + + + | Mark Escobar | [place] | [address] | | | | | [place] | | | | | [address] | | + + + + + Care Team Providers + +------+ + | Care Clerk Typist Name | Role | Phone | + +------+ + | Maria C Cordova MD | PCP | | + +------+ + Allergies + + + + + + | Active Allergy | Reactions | Severity | Noted | Comments | | | | | Date | | + + + + + + | Lisinopril | Cough | Low | 04/17/20 | | | | | | 16 | | + + + + + + Medications + + + +---------+------+------+-------+ | Medication | Sig | Dispensed | Refills | Star | End | Statu | | | | | | t | Date | s | | | | | | Date | | | + + + +---------+------+------+-------+ | atorvaSTATin | Take 40 mg by mouth | | 0 | | | Activ | | (LIPITOR) 40 mg | nightly. | | | | | e | | tablet | | | | | | | + + + +---------+------+------+-------+ | tadalafil (CIALIS) | Take 20 mg by mouth | | 0 | | | Activ | | 20 MG tablet | as needed for | | | | | e | | | Erectile | | | | | | | | Dysfunction. | | | | | | + + + +---------+------+------+-------+ | levothyroxine | Take 50 mcg by mouth | | 0 | | | Activ | | (SYNTHROID, | every morning | | | | | e | | LEVOTHROID) 50 mcg | (before breakfast). | | | | | | | tablet | | | | | | | + + + +---------+------+------+-------+ | losartan (COZAAR) | Take 100 mg by mouth | | 0 | | | Activ | | 100 MG tablet | Daily. | | | | | e | + + + +---------+------+------+-------+ | omeprazole | Take 20 mg by mouth | | 0 | | | Activ | | (PRILOSEC) 20 mg | every morning | | | | | e | | capsule | (before breakfast). | | | | | | + + + +---------+------+------+-------+ | acetaminophen | Take 2 tablets by | 15 | 11 | 08 | | Activ | | (TYLENOL) 325 mg | mouth every 4 hours. | tablet | | 12/01 | | e | | tablet | | | | 20 | | | + + + +---------+------+------+-------+ | metoprolol | Take 1 tablet by | 30 | 11 | 08/1 | | Activ | | succinate | mouth Daily. | tablet | | 2/20 | | e | | (TOPROL-XL) 100 mg | | | | 20 | | | | ER tablet | | | | | | | + + + +---------+------+------+-------+ | amLODIPine | Take 5 mg by mouth | | 0 | | 08/1 | Disco | | (NORVASC) 5 mg | Daily. | | | | 0/20 | ntinu | | tablet | | | | | 20 | ed | + + + +---------+------+------+-------+ | atenolol | Take 1 tablet by | | 0 | 06/0 | 08/1 | Disco | | (TENORMIN) 25 mg | mouth Daily. | | | 2/20 | 2/20 | ntinu | | tablet | | | | 20 | 20 | ed | + + + +---------+------+------+-------+ | metoprolol | Take 1 tablet by | 30 | 11 | 06/12 | 06/12 | Disco | | succinate | mouth Daily. | tablet | | 12/01 | 01/01 | ntinu | | (TOPROL-XL) 50 mg 24 | | | | 20 | 20 | ed | | hr tablet | | | | | | | + + + +---------+------+------+-------+ Active Problems + + + | Problem | Noted Date | + + + | Pneumothorax on left | 06/23/2020 | + + + + + | Overview: CXR showed left sided apical pnuemo post pacemaker | | implant. IR was consulted and chest tube was placed | | yesterday.06/23/2020Pneumothorax status post chest tube placement, | | with imaging reporting resolution of pneumothorax. Chest tube | | was removed at the bedside. Patient tolerated well. Will obtain | | final chest x-ray and if findings are stable then IR will sign | | off | + + + + + | Cardiac pacemaker | 06/23/2020 | + + + + + | Overview: [employer]: FINAL SETTINGS FOR THE DEVICE: | | Mode for pacing AAI with VVI backup. The output will be 3.5 | | volts at 0.4 milliseconds in both the right atrium and right | | ventricle with a sensitivity of 0.5 millivolts in the atrium and | | 2.5 millivolts in the right ventricle. The lower rate will be 60 | | and upper rate 130 beats per minute. The paced AV delay will be | | 170 milliseconds and sensed AV delay 150 milliseconds. That AV | | delay resulted in the most narrow QRS complex during ventricular | | pacing. The outputs will be 3.5 volts at 0.4 milliseconds in | | the atrium and ventricle with a sensitivity of 0.5 millivolts in | | the atrium and 2.5 millivolts in the ventricle. Pacing and | | sensing will be bipolar in both chambers.06/23/2020Noal device | | function seen on telemetry today. Site is CDI no evidence of | | hematoma or infection | + + + + + | Sinus arrest | 06/21/2020 | + + + + + | Overview: Sinus pauses of over 3.3 seconds noted during the | | day. He has had episodes of syncope. A pacemaker has been | | recommended. A dual-chamber Driver [employer] device will be | | placed. Risks, benefits, and rationale have been reviewed. | + + + + + | Vasovagal syncope | 04/13/2020 | + + + | Essential hypertension | 08/14/2017 | + + + | Herniated lumbar intervertebral disc | 04/20/2016 | + + + | Lumbar facet arthropathy | 04/20/2016 | + + + Encounters +--------+ + + + + | Date | Type | Specialty | Care Team | Description | +--------+ + + + + | 06/21/ | Surgery | Cardiology | Franko Savage, | CV EP PPM SYSTEM | | 2019 | | | MD | IMPLANT | +--------+ + + + + | 06/21/ | Anesthesia | Cardiology | Heidy Jacobsen, | | | 2019 | Event | | MD | | +--------+ + + + + | 06/21/ | Hospital | Internal Medicine | Franko Savage, | AV heart block; | | 2019 - | Encounter | | MD | AV heart block; | | | | | | Sinus arrest | | 06/23/ | | | | | | 2019 | | | | | +--------+ + + + + | 06/20/ | Telephone | Cardiology | Franko Savage, | Pacemaker Problem | | 2019 | | | MD | | +--------+ + + + + | 06/18/ | Clinical | Primary Care | | Exposure to | | 2020 | Support | | | SARS-associated | | | | | | coronavirus (Primary | | | | | | Dx) | +--------+ + + + + | 06/17/ | Telephone | Cardiology | Franko Savage, | Pre-Op | | 2019 | | | MD | | +--------+ + + + + | 06/15/ | Office | Cardiology | Sekou Godinez, | Essential | | 2020 | Visit | | MD | hypertension | | | | | | (Primary Dx); | | | | | | Vasovagal syncope | +--------+ + + + + | 06/15/ | Orders Only | Cardiology | Joseph Claire | AV heart block | | 2019 | | | MIRELLA Anderson | (Primary Dx) | +--------+ + + + + | 05/10/ | Documentati | Cardiology | Linda Delarosa, | Other (urgent | 2019 | on | | Technologist | report) | +--------+ + + + + | 04/26/ | Documentati | Cardiology | Linda Delarosa, | Other (urgent | 2019 | on | | Technologist | report) | +--------+ + + + + | 04/26/ | Documentati | Cardiology | Linda Delarosa, | Other (urgent | | 2019 | on | | Technologist | report) | +--------+ + + + + | 04/22/ | Procedure | Cardiology | Sekou Godinez, | Vasovagal syncope; | | 2019 | visit | | | Essential | | | | | | hypertension | +--------+ + + + + | 04/22/ | Documentati | Cardiology | Moe Loera, | Other (End of Study | | 2019 | on | | Technologist | / day [employer]) | +--------+ + + + + | 04/22/ | Telephone | Gastroenterology | Yunier Maria | Follow-up (Needs 3 | | 2019 | | | MD Dougie | month f/u visit) | +--------+ + + + + | 04/20/ | Virtual | Gastroenterology | Yunier Maria | Vasovagal syncope | | 2019 | Office | | MD Dougie | (Primary Dx); Other | | | Visit | | | dysphagia; Sensation | | | | | | of chest pressure; | | | | | | Gastroesophageal | | | | | | reflux disease, | | | | | | esophagitis presence | | | | | | not specified; | | | | | | Weight loss | +--------+ + + + + | 04/13/ | Office | Cardiology | Sekou Godinez, | Essential | | 2019 | Visit | | | hypertension | | | | | | (Primary Dx); | | | | | | Vasovagal syncope | +--------+ + + + + | 04/12/ | Telephone | Cardiology | Sekou Godinez, | Other (scheduling) | | 2019 | | | MD | | +--------+ + + + + from Last 3 Months Family History + + +------+ + | Medical History | Relation | Name | Comments | + + +------+ + | Heart attack | Brother | | | + + +------+ + | Heart disease | Brother | | PCI | + + +------+ + | No known problems | Child | | | + + +------+ + | Heart disease | Father | | | + + +------+ + | No known problems | Maternal | | | | | Grandfath | | | | | er | | | + + +------+ + | No known problems | Maternal | | | | | Grandmoth | | | | | er | | | + + +------+ + | Cancer | Mother | | | + + +------+ + | Heart disease | Mother | | CABG | + + +------+ + | No known problems | Paternal | | | | | Grandfath | | | | | er | | | + + +------+ + | No known problems | Paternal | | | | | Grandmoth | | | | | er | | | + + +------+ + | Cancer | Sister | | | + + +------+ + | Cancer | Sister | | | + + +------+ + | Chronic infections | Sister | | | + + +------+ + | Colon cancer | Neg Hx | | | + + +------+ + | Colon polyps | Neg Hx | | | + + +------+ + + +------+ + + | Relation | Name | Status | Comments | + +------+ + + | Brother | | Alive | | + +------+ + + | Brother | | Alive | | + +------+ + + | Brother | | Alive | | + +------+ + + | Brother | | | | + +------+ + + | Brother | | | | + +------+ + + | Child | | Alive | | + +------+ + + | Child | | Alive | | + +------+ + + | Child | | Alive | | + +------+ + + | Child | | Alive | | + +------+ + + | Child | | | | + +------+ + + | Father | | | | | | | (Age | | | | | 68) | | + +------+ + + | Maternal Grandfather | | Other | STATUS NOT LISTED | + +------+ + + | Maternal Grandmother | | Other | STATUS NOT LISTED | + +------+ + + | Mother | | | | | | | (Age | | | | | 86) | | + +------+ + + | Paternal Grandfather | | Other | STATUS NOT LISTED | + +------+ + + | Paternal Grandmother | | Other | STATUS NOT LISTED | + +------+ + + | Sister | | | | + +------+ + + | Sister | | Alive | | + +------+ + + | Sister | | Alive | | + +------+ + + | Sister | | | | + +------+ + + | Sister | | | | + +------+ + + | Sister | | | | + +------+ + + Social History + +-------+ +--------+------+ [...] on file | | + + + Last Filed Vital Signs + + + [...] | | + + + + + Plan of Treatment +--------+ + + + + | Date | Type | Specialty | Care Team | Description | +--------+ + + + + | 08/09/ | Office | Cardiology | Joseph Claire | | | 2019 | Visit | | MIRELLA Anderson [address] | | | | | | [address] | | | | | | [place] [address] | | | | | | [phone] | | | | | | | | +--------+ + + + + | 08/09/ | Procedure | Cardiology | | | | 2019 | visit | | | | +--------+ + + + + | 10/19/ | Office | Cardiology | Sekou Godinez, | | | 2020 | Visit | | MD Higinio [address]ITH | | | | | | [place] | | | | | | [address] | | | | | | | | +--------+ + + + + + + + + + | Health Maintenance | Due Date | Last | Comments | | | | Done | | + + + + + | Hepatitis C | | | | | Screening | 2 | | | + + + + + | Med Mgmt: TSH | | | | | | 2 | | | + + + + + | Medication | | | | | Management | 2 | | | + + + + + | Vaccine: | | | | | Dtap/Tdap/Td (1 - | 1 | | | | Tdap) | | | | + + + + + | Vaccine: Zoster (1 | | | | | of 2) | 2 | | | + + + + + | Colorectal Cancer | | 11/12/19 | | | Screening | 5 | 05 | | | (Colonoscopy) | | | | + + + + + | Vaccine: | | | | | Pneumococcal 65+ (1 | 7 | | | | of 1 - PPSV23) | | | | + + + + + | Adult Annual | | | | | Wellness Visit | 0 | | | + + + + + | Vaccine: Influenza | | | | | (#1) | 0 | | | + + + + + | Med Mgmt: Cr | | 06/21/20 | | | | 1 | 20 | | + + + + + | Med Mgmt: K | | 06/21/20 | | | | 1 | 20 | | + + + + + Implants + +--------+------+ +--------+--------+--------+ | Implanted | Type | Area | Manufacture | Device | Shelf | Model | | | | | r | | Expira | / | | | | | | Identi | tion | Serial | | | | | | fier | Date | / Lot | + +--------+------+ +--------+--------+--------+ | Pacemaker Accolade Dr Richards Mri | Pacema | | [place] | [id number] | 05/28/ | [id number] | | - [id number]: Qty: 1 on | ker | | SCIENTIFIC | [id number] | 2021 | /[id number] | | 06/21/2020 by Franko Savage | | | DUSTY - BSCI | 66 | | 9 / | | MD [facility] at [facility] | | | | | | | | [facility] | | | | | | | + +--------+------+ +--------+--------+--------+ | IngevityImplanted: Qty: 1 on | | | | [id number] | 01/12/ | [id number] | | 06/21/2020 by Franko Savage | | | | [id number] | 2021 | 9 | | MD [place] at [facility] | | | | 22 | | /[id number] | | [facility] | | | | | | 01 / | + +--------+------+ +--------+--------+--------+ | Lead Pacing Ingevity 52cm - | | | [place] | [id number] | 06/06/ | 7841 | | [id number]: Qty: 1 on | | | SCIENTIFIC | [id number] | 2021 | /[id number] | | 06/21/2020 by Franko Savage | | | DUSTY - BSCI | 77 | | 58 / | | MD [place] at [facility] | | | | | | | | [facility] | | | | | | | + +--------+------+ +--------+--------+--------+ Procedures + +--------+ + + + | [...] section. | + +--------+ + + + from Last 3 Months Results XR Chest Inspiration and Expiration (06/23/2020 [...] | Procedure Note | + + | [facility] [place], [id number] - 06/23/2020 9:32 AM PDT | | [...] XR Chest AP Portable (06/22/2020 5:15 PM PDT)Only the most recent of 3 results within the time period is included. + + | Specimen | + + | | + + + + + | Impressions | Performed At | + + + | No significant pneumothorax with the chest tube clamped. | [facility] | | Final Report Signed by: Kam Millan, Rohit Sign Date/Time: | | | 06/23/2020 7:55 AM [...] Procedure Note | + + | Richard, [id number] - 06/23/2020 7:59 AM PDT | | [...] | | | planned to go to [facility] 1 pneumothorax resolves and hopefully | | [...] into the left chest and a 10 [place] pigtail chest | | | tube is [...] Procedure Note | + + | Richard, [id number] - 06/22/2020 9:45 AM PDT | | [...] into the left chest and a 10 [place] pigtail chest | | tube is placed [...] Chest PA and Lateral (06/22/2020 7:29 AM PDT)Only the most recent of 3 results within t time period is included. + + | Specimen | + + | | + + + + + | Impressions | Performed At | + + + | *Mtfem-zn-kgkdumhk left pneumothorax, mildly increased as compared | [...] Procedure Note | + + | Richard, [id number] - 06/22/2020 7:54 AM PDT | | [...] | | | | IMPRESSION: | | *Xixsj-cc-inrfoqnc left pneumothorax, mildly increased as compared to | | radiographs dated 06/21/2020. | | *Ill-defined opacities in lingular segment of left upper lobe and right | | lower lobe, new/increased as compared to radiographs dated 06/21/2020 | | could represent atelectasis and/or pneumonia. | | | | | | | | | | Final Report Signed by: Kam Darnell, Layne | | Sign Date/Time: 06/22/2020 7:50 AM | + + + +---------+ + + | Performing | Address | City/State/Zipcode | Phone Number | | Organization | | | | + +---------+ + + | [facility] | | | | + +---------+ + + CBC with Differential (06/21/2020 11:45 [...] | | | Absolute | performed at [facility];[address] | LABORATORY | | | | [address];[place] | | | | | | [address] | | | | + + + + + + + + | Specimen | + + | Blood | + + + + + + + | Performing | Address | City/State/Zipcode | Phone Number | | Organization | | | | + + + + + | [facility] | [address] | [place] [address] | [phone] | + + + + + Comprehensive Metabolic Panel (06/21/2020 11:45 [...] | >60Comment: GFR <60: | >60 | [facility] | | | GFR | CHRONIC KIDNEY [...] | | | | | | MDRD IDWV traceable | | | | | | equation.Testing | | | | | | performed at [facility];[address] | | | | | | [facility];[place], [place] | | | | | | [address] | | | | + + + + + + + + | Specimen | + + | Blood | + + + + + + + | Performing | Address | City/State/Zipcode | Phone Number | | Organization | | | | + + + + + | [facility] | [address] | [place] [address] | [phone] | + + + + + POC Coronavirus (COVID-19) NAAT (06/18/2020 10:02 AM [...] Negative results, using the | | | [employer] ID NOW Platform, should be treated as [...] | sooner. | | + + + ECG 12 lead (06/15/2020 12:00 PM PDT) [...] by | | | | | | SEKOU GODINEZ MD | | | | | | ([id number]) on 06/16/2020 | | | | | [...] | | | + +---------+ + + from Last 3 Months Insurance + +--------+ +--------+ + +--------+ | Payer | Benefi | Subscriber | Effect | Phone | Address | Type | | | t Plan | ID | jas | | | | | | / | | Dates | | | | | | Group | | | | | | + +--------+ +--------+ + +--------+ | [facility] | PHP | [id number] | | [phone] | | PPO | | PLAN | PEBB | | 014-Pr | 5 | | | | | STATEW | | esent | | | | | | URSZULA | | | | | | + +--------+ +--------+ + +--------+ | MEDICARE | MEDICA | [id number] | 03/12/20 | [phone] | | Medica | | | RE | | 17-Pre | 5 | | re | | | PART A | | sent | | | | | | AND B | | | | | | + +--------+ +--------+ + +--------+ | MODA | MODA | [id number] | 11/12/19 | [phone] | [address] | Indemn | | | HEALTH | | 19-Pre | 9 | [phone] | ity | | | MDCR | | sent | | [place], | | | | [place] | | | | [place] [address] | | + +--------+ +--------+ + +--------+ + +--------+ +--------+ + + | Guarantor Name | Accoun | Relation to | Date | Phone | Billing Address | | | t Type | Patient | of | | | | | | | | | | + +--------+ +--------+ + + | Thomas Escobar | Person | Self [birth year] | [address] | | | al/Fam | | 1950 | [phone] | [place] [address] | | | norma | | | 1 (Home) | | | | | | | [phone] | | | | | | | 1 (Work) | | + +--------+ +--------+ + + | Thomas Escobar | Person | Self [birth year] | [address] | | | al/Fam | | 1950 | [phone] | [place] [address] | | | norma | | | 1 (Home) | | | | | | | [phone] | | | | | | | 1 (Work) | | + +--------+ +--------+ + + | Thomas Escobar | Person | Self | [birth year] | [address] | | | al/Fam | | 2 | [phone] | [place] [address] | | | norma | | | 1 (Home) | | | | | | | [phone] | | | | | | | 1 (Work) | | + +--------+ +--------+ + + Advance Directives + + + + + | Type | Date Recorded | Patient | Explanation | | | | Windows Technical Specialist | | + + + + + | Power of | | | | | Clay Preparation Supervisor | | | | + + + + + | Advance | 06/21/2020 11:02 | | | | Directive | AM | | | + + + + + + + + + + | Code Status | Date | Date | Comments | | | Activated | Inactivated | | + + + + + | Full Code | 06/21/2020 | 06/23/2020 | | | | 7:38 PM | 2:41 PM | | + + + + +
--- OUTSIDE RECORDS SUMMARY | ~2020-06-26 | XMS | Encounter Summary ---
Demographics + + + | Address | [address] | | | [place] [address] | + + + | Home Phone [...] Author | [facility] | | | and [place] | + + + | Organization | [facility] | | | and [place] | + + + | Address | Unknown | + + + | Phone | Unavailable | + + + Support + + + + + | Name | Relationship | Address | Phone | + + + + + | Mark Escobar | [place] | [address] | | | | | [place] | | | | | [address] | | + + + + + Care Team Providers + +------+ + | Care Aluminum Pool Installer Name | Role | Phone | + +------+ + | Tello Rodarte MD | PCP | | + +------+ + Reason for Visit + + + | Reason | Comments | + + + | Back Pain | | + + + Evaluate & Treat (Routine) +--------+--------+ + + + + | Status | Reason | Specialty | Diagnoses / | Referred By | Referred To | | | | | Procedures | Contact | Contact | +--------+--------+ + + + + | Closed | | Neurosurgery | Diagnoses | [place], | Geovani Hendrickson | | | | | Low back | Tello Rush MD [address] | | | | | pain | MD [address] | | | | | Procedures | [address] | [place], [place] | | | | | [place] OFFICE | [place] | [address] | | | | | CONSULTATION | [address] | Phone: | | | | | NEW/ESTAB | [place], | [phone] | | | | | PATIENT 62 | [place] | Fax: | | | | | [place] | [address] | [phone] | | | | | | Phone: | | | | | | | [phone] | | | | | | | Fax: | | | | | | | [phone] | | +--------+--------+ + + + + Encounter Details +--------+---------+ + + + | Date | Type | Department | Care Team | Description | +--------+---------+ + + + | 04/20/ | Office | [facility] | Geovani Hendrickson MD | Lumbar disc | | 2016 | Visit | NEUROSURGERY [address] | herniation (Primary | | | | [address] | [place] [address] | Dx); Lumbar facet | | | | [place], [place] | [phone] | arthropathy | | | | [address] | | | | | | [phone] | | | +--------+---------+ + + + [...] + + + | Blood Pressure | 124/76 | 04/20/2016 9:50 AM | | | | | PDT | | + + + + + | Pulse | 47 | 04/20/2016 9:50 AM | | | | | PDT | | + + + + + | Temperature | - | - | | + + + + + | Respiratory Rate | 18 | 04/20/2016 9:50 AM | | | | | PDT | | + + + + + | Oxygen Saturation | - | - | | + + + + + | Inhaled Oxygen | - | - | | | Concentration | | | | + + + + + | Weight | 97.1 kg (214 lb) | 04/20/2016 9:50 AM | | | | | PDT | | + + + + + | Height | 177.8 cm (5' 10") | 04/20/2016 9:50 AM | | | | | PDT | | + + + + + | Body Mass Index | 30.71 | 04/20/2016 9:50 AM | | | | | PDT | | + + + + + documented in this encounter Progress Notes Geovani Hendrickson MD - 04/20/2016 9:27 AM PDTFormatting of this note might be different from yanelis rangel original. Geovani Hendrickson MD [address] [place] [address], [address] [place] [address] FAX: NEUROSURGERY HISTORY AND PHYSICAL EXAMINATION CHIEF COMPLAINT: Chief Complaint Patient presents with Back Pain HISTORY OF PRESENT ILLNESS: The patient is a 66 y.o. male with the complaint of back and r ight leg pain symptoms that began in October 2015. The patient describes playing basketball and having a fall. He twisted his back and shoulder. He began having severe right leg emanuel n that would radiate to the bobby. The symptoms lasted about 4 weeks and then started to res olve The symptoms have been gradually improving. He rates the pain as 0/10. The symptoms are r are. He describes the pain as aching. The patient describes leg symptoms that occurred on primarily on the right. The leg sympto ms account for over half of his symptoms. The leg symptoms were constant, and the symptoms travel from the back to the bobby. These symptoms have again resolved. The patient does not report any change in bowel or bladder function recently. He has tried Opioids. The patient is not currently taking opioids. These measures and angelo e have improved his symptoms. PAST MEDICAL HISTORY: Past Medical History Diagnosis Date Low back pain Benign localized prostatic hyperplasia with lower urinary tract symptoms (LUTS) Colon, diverticulosis Anxiety and depression Dyspepsia Esophageal reflux Essential hypertension HLD (hyperlipidemia) Hypothyroidism, iatrogenic Impaired fasting glucose Migraine headache Nephrolithiasis Osteoarthrosis involving lower leg Presbycusis PAST SURGICAL HISTORY: Past Surgical History Procedure Laterality Date Knee joint replacement Left 06/2007 Tonsillectomy and adenoidectomy Lithotripsy 1994 Thyroidectomy, partial Right benign Colonoscopy 2004 CURRENT MEDICATIONS: Current Outpatient Prescriptions Medication Sig Dispense Refill aspirin 81 mg EC tablet Take 81 mg by mouth Daily. atenolol (TENORMIN) 50 mg tablet Take 50 mg by mouth Daily. atorvaSTATin (LIPITOR) 40 mg tablet Take 40 mg by mouth nightly. buPROPion (WELLBUTRIN SR) 150 mg 12 hr tablet Take 150 mg by mouth 2 times daily. levothyroxine (SYNTHROID, LEVOTHROID) 50 mcg tablet Take 50 mcg by mouth every morning (before breakfast). LORazepam (ATIVAN) 0.5 mg tablet Take 0.5 mg by mouth every 6 hours as needed for Anxie ty or Insomnia. losartan (COZAAR) 100 MG tablet Take 100 mg by mouth Daily. PREDNISONE PO Take by mouth Daily. tadalafil (CIALIS) 20 MG tablet Take 20 mg by mouth as needed for Erectile Dysfunction. No current facility-administered medications for this visit. ALLERGIES: Allergies Allergen Reactions Lisinopril SOCIAL HISTORY: The patient reports that he has never smoked. He has never used smokeless tobacco. He repo rts that he drinks alcohol. He reports that he does not use illicit drugs. FAMILY HISTORY: Family History Problem Relation Age of Onset Heart disease Father Heart disease Mother Heart attack Brother 49 Cancer Sister 40 Cancer Sister 40 No Known Problems Child No Known Problems Paternal Grandfather No Known Problems Paternal Grandmother No Known Problems Maternal Grandfather No Known Problems Maternal Grandmother REVIEW OF SYSTEMS GENERALLY: No fever, no night sweats, no anemia, no fatigue, no recent profound weight ch anges. EYES: No eye problems, +use of corrective lenses, no eye injury, no double vision, no blin dness. EARS, NOSE, AND THROAT: No changes in taste or smell, + hearing difficulty, no ringing in the ears, no ear drainage, no dizziness, no voice changes, no difficulty swallowing, no sign ificant snoring, no sleep apnea, no sinus problems, no major dental work. NEUROLOGICALLY: Please see the review of systems discussed above in the history of present illness. PSYCHIATRIC: No depression, no sleep disorders, no anxiety, no bipolar disorder, no psycho tic episodes. CARDIOVASCULAR: No heart attacks, no heart murmur, no heart fluttering, no chest pain, no ankle swelling. LUNG DISEASE: No shortness of breath, no cough, no tuberculosis, no bloody cough, no asth ma, no emphysema/COPD. GASTROINTESTINAL: No bowel disease, no nausea or vomiting, no rectal bleeding, no constipa tion, no stool incontinence, no liver disease, no gallbladder disease, no abdominal pain, no ulcers. KIDNEY DISEASE: No urinary frequency, no painful or difficult urination, no incontinence. ENDOCRINE: No diabetes, no thyroid disease, no osteopenia or osteoporosis, no breast drain age. SKIN: No breast lumps, no skin changes, no rashes, no itches. HEMATOLOGIC/LYMPHATIC: No enlarged lymph nodes, no easy or unusual bleeding, no personal h istory of cancer. RHEUMATOLOGIC: No joint arthritis, no rheumatoid arthritis. PHYSICAL EXAMINATION: Blood pressure 124/76, pulse 47, resp. rate 18, height 1.778 m (5' 10"), weight 97.07 kg (2 14 lb). Body mass index is 30.71 kg/(m^2). GENERAL: Thomas Escobar is in no acute distress with unlabored respirations. The patient do es not appear uncomfortable throughout the exam today. HEENT: Head: Normocephalic/atraumatic with no areas of recent trauma. Eyes: Normal sclerae without icterus. Ears: No drainage or tenderness. Nasopharnyx: Clear without drainage. Oropharnyx: Clear without erythema. NECK (ANTERIOR): Supple and without palpable masses. CHEST: Clear to ausculation without crackles or wheeze. HEART: Regular rate and rhythm without murmurs. ABDOMEN: Soft, non-tender, non-distended, and without palpable masses. The patient is not o bese. SPINE: There is no tenderness of there cervical or thoracic spine. The lumbar spine shows there is no tenderness in the midline of the L1, L2, L3, L4, L5, S1 levels. To palpation, there is no significant myofascial tenderness. There is no significant pain to provacative testing of the SI joint. There is no major deformity noted. EXTREMITIES: No cyanosis, clubbing, or edema. Distal pulses are palpable. NEUROLOGICAL EXAM: MENTAL STATUS: The patient is awake, alert, and oriented. He follows simple and complex commands. His speech is fluent, he comprehends speech well, and he repeats well. He has no apparent deficits with short or [facility] memory. CRANIAL NERVES: II: Acuity is intact. Mao are full to confrontation. III, IV, : The pupils are reactive. Extraocular movements are intact. No ptosis is note d. V: Facial sensation is intact and symmetric. VII: Facial movements are symmetric. VIII: Hearing is intact bilaterally. IX, X: The uvula and palate move appropriately. XI: Shrug is equal bilaterally. XII: Tongue protrusion is midline. MOTOR EXAM: (5 IS NORMAL) * Indicates pain limited MUSCLE/ MOVEMENT: RIGHT LEFT Deltoids 5 5 Biceps 5 5 Triceps 5 5 Wrist Flexion 5 5 Wrist Extension 5 5 Median Intrinsics 5 5 Ulnar Intrinsics 5 5 Drawing Supervisor Strength 5 5 Hip Flexion 5 5 Hip Extension 5 5 Knee Flexion 5 5 Knee Extension 5 5 Dorsiflexion 5 5 Extensor Hallicus Longus 5 5 Plantarflexion 5 5 SENSORY EXAM: Sensory exam shows no diminished sensation to light touch or pain throughout the upper and lower extremities. REFLEXES: (2 OR 2+ IS NORMAL) REFLEX: RIGHT LEFT BICEPS 1 1 BRACHIORADIALIS 1 1 TRICEPS 1 1 PATELLAR 1 1 ACHILLES 1 1 PRIETO'S ABSENT ABSENT PLANTAR DOWNGOING DOWNGOING GAIT: Gait is steady. PERIPHERAL NERVE/MISC: Tinel is negative at the wrists and elbows bilaterally. Phalen is negative. Straight leg raise is negative bilaterally. Devon's test of the hips is negative bilaterally. TEST AND RADIOGRAPHIC REVIEW: The patient's imaging was reviewed in detail with the patient today during the visit. The MRI from 2016 shows L4-5 right disc herniation with upward migration. It compresses the L4 root. He has L4-5 facet arthropathy. Lumbar x-rays show no major instability. ASSESSMENT: NEUROSURGICAL DIAGNOSES: Encounter Diagnoses Name Primary? Lumbar disc herniation Yes Lumbar facet arthropathy GENERAL DIAGNOSES: Past Medical History Diagnosis Date Low back pain Benign localized prostatic hyperplasia with lower urinary tract symptoms (LUTS) Colon, diverticulosis Anxiety and depression Dyspepsia Esophageal reflux Essential hypertension HLD (hyperlipidemia) Hypothyroidism, iatrogenic Impaired fasting glucose Migraine headache Nephrolithiasis Osteoarthrosis involving lower leg Presbycusis PLAN: Thomas Escobar presented today, and we went over in great detail his neurologic problems. The patient had a L4-5 disc herniation that I suspect has fully healed. The patient has st able symptoms. I had a lengthy discussion with the patient about his options for care including surgical a nd non-surgical options. In discussing the surgical options, we discussed in detail the patient's options for a mini cesia invasive discectomy at L4-5. I hope that with core strengthening and exercise he can avoid surgery long-term. The patient would like to continue conservative care and return to discuss surgery or addit ional treatment options if the symptoms worsen. ELECTRONICALLY SIGNED BY: Geovani Hendrickson MD, 04/20/2016 10:28 documented in this encou nter Plan of Treatment +--------+ + + + + | Date | Type | Specialty | Care Team | Description | +--------+ + + + + | 08/09/ | Office | Cardiology | Joseph Claire | | | 2019 | Visit | | MIRELLA Anderson | | | | | | [place] | | | | | | [place] [address] | | | | | | [phone] | | | | | | | [...] [place] | | | | | | [address] | | | | | | | | +--------+ + + + + documented as of this encounter Visit Diagnoses + + | Diagnosis | + + | Lumbar disc herniation - Primary Displacement of lumbar intervertebral disc without | | myelopathy | + + | Lumbar facet arthropathy Lumbosacral spondylosis without myelopathy | + + documented in this encounter
--- OUTSIDE RECORDS SUMMARY | ~2020-06-26 | XMS | Encounter Summary ---
Demographics + + + | Address | [address] | | | [place] [address] | + + + | Home Phone | | + + + | Preferred Language | Unknown | + + + | Marital Status | | + + + | Druze Affiliation | Unknown | + + + | Race | Unknown | + + + | Ethnic Group | Unknown | + + + Author + + + | Author | [facility] | | | and [place] | + + + | Organization | [facility] | | | and [place] | + + + | Address | Unknown | + + + | Phone | Unavailable | + + + Support + + + + + | Name | Relationship | Address | Phone | + + + + + | Mark Escobar | [place] | [address] | | | | | [place] | | | | | [address] | | + + + + + Care Team Providers + +------+ + | Care Folding Machine Tender Name | Role | Phone | + +------+ + | Tello Rodarte MD | PCP | | + +------+ + Encounter Details +--------+ + + + + | Date | Type | Department | Care Team | Description | +--------+ + + + + | 04/20/ | Hospital | [facility] | Geovani Hendrickson MD | Back pain | | 2016 | Encounter | MED CTR XRAY [address] | | | | | [address] | [place] [address] | | | | | [place] [address] | [phone] | | | | | [phone] | | | +--------+ + + + [...] + + documented as of this encounter Medications at Time of Discharge + + + +---------+--------+ + | Medication | Sig | Dispensed | Refills | Start | End Date | | | | | | Date | | + + + +---------+--------+ + | atorvaSTATin | Take 40 mg by mouth | | 0 | | | | (LIPITOR) 40 mg | nightly. | | | | | | tablet | | | | | | + + + +---------+--------+ + | levothyroxine | Take 50 mcg by mouth | | 0 | | | | (SYNTHROID, | every morning | | | | | | LEVOTHROID) 50 mcg | (before breakfast). | | | | | | tablet | | | | | | + + + +---------+--------+ + | losartan (COZAAR) | Take 100 mg by mouth | | 0 | | | | 100 MG tablet | Daily. | | | | | + + + +---------+--------+ + | tadalafil (CIALIS) | Take 20 mg by mouth | | 0 | | | | 20 MG tablet | as needed for | | | | | | | Erectile | | | | | | | Dysfunction. | | | | | + + + +---------+--------+ + | aspirin 81 mg EC | Take 81 mg by mouth | | 0 | | | | tablet | Daily. | | | | 0 | + + + +---------+--------+ + | atenolol | Take 50 mg by mouth | | 0 | | | | (TENORMIN) 50 mg | Daily. | | | | 0 | | tablet | | | | | | + + + +---------+--------+ + | buPROPion | Take 150 mg by mouth | | 0 | | | | (WELLBUTRIN SR) 150 | 2 times daily. | | | | 0 | | mg 12 hr tablet | | | | | | + + + +---------+--------+ + | LORazepam (ATIVAN) | Take 0.5 mg by mouth | | 0 | | | | 0.5 mg tablet | every 6 hours as | | | | 0 | | | needed for Anxiety | | | | | | | or Insomnia. | | | | | + + + +---------+--------+ + | PREDNISONE PO | Take by mouth | | 0 | | | | | Daily. | | | | 0 | + + + +---------+--------+ + documented as of this encounter Plan [...] | | | | | [place] [address] | | | | | | [phone] | | | | | | | | +--------+ + + + + | 08/09/ | Procedure | Cardiology | | | | 2019 | visit | | | | +--------+ + + + + | 10/19/ | Office | Cardiology | HerbertTrevor, | | | 2019 | Visit | | MD Higinio SMITH | | | | | | [place] | | | | | | [address] | | | | | | | | +--------+ + + + + documented as of this encounter Procedures + +--------+ + + + | Procedure Name | Priori | Date/Time | Associated Diagnosis | Comments | | | ty | | | | + +--------+ + + + | XR LUMBAR SPINE 4 + | Routin | 04/20/2016 | Back pain | Results for this | | VW | e | 8:57 AM | | procedure are in the | | | | PDT | | results section. | + +--------+ + + + documented in this encounter Results XR Lumbar Spine 4 + Vw (04/20/2016 8:57 AM PDT) + + | Specimen | + + | | + + + + + | Narrative | Performed At | + + + | EXAM: XR LUMBAR SPINE 4 + VW dated 04/20/2016 8:29 AM HISTORY:Back | [facility] | | Pain COMPARISON: Outside MRI dated December 01, 2015. | [facility] | | FINDINGS:Mild leftward curvature. [...] | + + + + + | [address] | [address] | [place] | [phone] | | [facility] | | [address] | | | - IMAGING | | | | + + + + + documented in this encounter Visit Diagnoses + + | Diagnosis | + + | Back pain Backache, unspecified | + + documented in this encounter"
--- OUTSIDE RECORDS SUMMARY | ~2020-06-26 | XMS | Clinical Summary ---
Demographics + + + | Address | [address] | | | [place] [address] | + + + | Home Phone | | + + + | Preferred Language | Unknown | + + + | Marital Status | | + + + | Shinto Affiliation | Unknown | + + + | Race | Unknown | + + + | Ethnic Group | Other Race | + + + Author + + + | Author | [facility] | + + + | Organization | [facility] | + + + | Address | Unknown | + + + | Phone | Unavailable | + + + Care Team Providers + +------+ + | Care Fire Prevention Bureau Captain Name | Role | Phone | + +------+ + PCP | Unavailable | + +------+ + Source Comments ROJELIO is fully live on both [facility] and [facility] Allergies Not on File Medications Not on file Active Problems Not on file Social History + +-------+ +--------+------+ | Tobacco [...] recent travel history available. | + + Last Filed Vital Signs Not on file Plan of Treatment + + + + + | Health Maintenance | Due Date | Last Done | Comments | + + + + + | Pneumococcal | | | | | vaccination (1 of 2 | 7 | | | | - PCV13) | | | | + + + + + | Influenza (Flu) | | | | | vaccination (#1) | 9 | | | + + + + + Results Not on filefrom Last 3 Months Insurance + +--------+ +--------+ + +------+ | Payer | Benefi | Subscriber | Effect | Phone | Address | Type | | | t Plan | ID | jas | | | | | | / | | Dates | | | | | | Group | | | | | | + +--------+ +--------+ + +------+ | [facility] | PHP | [phone] | Effect | [phone] | [address] | PPO | | | [address] | | jas | [address] | [address] | | | [address] | | for | | [place], | | | | [place] | | all | | [place] [address] | | | | | | dates | | | | + +--------+ +--------+ + +------+ | [employer] | MODA | [phone] | | [phone] | [address] | PPO | | | [address] | | [phone] | [phone] | | | | [place] | | esent | | [place], | | | | [place] | | | | [place] [address] | | + +--------+ +--------+ + +------+ + +--------+ +--------+ + + | Guarantor Name | Accoun | Relation to | Date | Phone | Billing Address | | | t Type | Patient | of | | | | | | | | | | + +--------+ +--------+ + + | Thomas Escobar | Person | Self | [birth year] | [address] | | | al/Fam | | 2 | [phone] | [place] [address] | | | norma | | | 4 (Home) | | + +--------+ +--------+ + +"
--- OUTSIDE RECORDS SUMMARY | ~2020-06-26 | XMS | Encounter Summary ---
Demographics + + + | Address | [address] | | | [place] [address] | + + + | Home Phone | | + + + | Preferred Language | Unknown | + + + | Marital Status | | + + + | Sikh Affiliation | Unknown | + + + | Race | Unknown | + + + | Ethnic Group | Unknown | + + + Author + + + | Author | [facility] | | | and [place] | + + + | Organization | [facility] | | | and [place] | + + + | Address | Unknown | + + + | Phone | Unavailable | + + + Support + + + + + | Name | Relationship | Address | Phone | + + + + + | Mark Escobar | [place] | [address] | | | | | [place] | | | | | [address] | | + + + + + Care Team Providers + +------+ + | Care Fence Manufacture Supervisor Name | Role | Phone | + +------+ + | Maria C Cordova MD | PCP | | + +------+ + Reason for Visit + + + | Reason | Comments | + + + | Follow-up | | + + + Encounter Details +--------+---------+ + + + | Date | Type | Department | Care Team | Description | +--------+---------+ + + + | 04/13/ | Office | [facility] | Trevor Mcdonnell, | Essential | | 2020 | Visit | CARDIOLOGY [place] | [address] | hypertension | | | | [address] | [place] | (Primary Dx); | | | | [place] | [address] | Vasovagal syncope | | | | [address] | | | | | | [phone] | | | +--------+---------+ + + + [...] + + + | Blood Pressure | 116/76 | 04/13/2020 10:29 AM | | | | | PDT | | + + + + + | Pulse | 47 | 04/13/2020 10:29 AM | | | | | PDT | | + + + + + | Temperature | 36.5 C (97.7 F) | 04/13/2020 10:29 AM | | | | | PDT | | + + + + + | Respiratory Rate | - | - | | + + + + + | Oxygen Saturation | 98% | 04/13/2020 10:29 AM | | | | | PDT | | + + + + + | Inhaled Oxygen | - | - | | | Concentration | | | | + + + + + | Weight | 81.6 kg (180 lb) | 04/13/2020 10:29 AM | | | | | PDT | | + + + + + | Height | 177.8 cm (5' 10") | 04/13/2020 10:29 AM | | | | | PDT | | + + + + + | Body Mass Index | 25.83 | 04/13/2020 10:29 AM | | | | | PDT | | + + + + + documented in this encounter Progress Notes Trevor Mcdonnell MD - 04/13/2020 10:30 AM PDTFormatting of this note might be different f rom the original. Date of visit: 04/13/2020 Primary Care Physician: Maria C Cordova MD CHIEF COMPLAINT: Chief Complaint Patient presents with Follow-up HISTORY OF PRESENT ILLNESS: Thomas is 70 y.o. here for evaluation and consultation regarding syncopal episodes. Sympto ms have been recurrent happen at least 3-4 times. First episode patient was in a plane [...] was driving back from the airport in [facility], he stopped to have lunch while [...] it passed without syncope. Seen earlier in 2016 secondary to essential hypertension at that time. Noted to be bradyca rdic back then atenolol dosage was decreased. Has been active otherwise. Lately has been having some mild tiredness and fatigue. 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 Past medical history, SH, FH, and medications were reviewed in the chart. Medications: Outpatient Encounter Medications as of 04/13/2020 Medication Sig Dispense Refill amLODIPine (NORVASC) 5 mg tablet Take 5 mg by mouth Daily. [DISCONTINUED] aspirin 81 mg EC tablet Take 81 mg by mouth Daily. atenolol (TENORMIN) 50 mg tablet Take 50 mg by mouth Daily. atorvaSTATin (LIPITOR) 40 mg tablet Take 40 mg by mouth nightly. [DISCONTINUED] buPROPion (WELLBUTRIN SR) 150 mg 12 hr tablet Take 150 mg by mouth 2 angelo es daily. [DISCONTINUED] buPROPion (ZYBAN) 150 MG 12 hr tablet Take 150 mg by mouth daily. levothyroxine (SYNTHROID, LEVOTHROID) 50 mcg tablet Take 50 mcg by mouth every morning (before breakfast). [DISCONTINUED] LORazepam (ATIVAN) 0.5 mg tablet Take 0.5 mg by mouth every 6 hours as n eeded for Anxiety or Insomnia. losartan (COZAAR) 100 MG tablet Take 100 mg by mouth Daily. [DISCONTINUED] PREDNISONE PO Take by mouth Daily. [DISCONTINUED] raNITIdine (ZANTAC) 150 mg tablet Take 150 mg by mouth every morning. tadalafil (CIALIS) 20 MG tablet Take 20 mg by mouth as needed for Erectile Dysfunction. No facility-administered encounter medications on file as of 04/13/2020. Allergies Allergies Allergen Reactions Lisinopril Cough REVIEW OF SYSTEMS: Constitutional: negative for fatigue. No fever, chills, and rigors. No report of weight ch guero. HEENT: Negative for nosebleeds, ear discharge, nasal congestion or soar throat. Eyes: Negative for visual disturbance, redness, or secretion. Respiratory: Negative for cough, sputum production, hemoptysis, wheezing. Cardiovascular: As HPI. Gastrointestinal: Negative for nausea, vomiting, diarrhea, abdominal pain and blood in stoo l. Genitourinary: Negative for dysuria or hematuria. Musculoskeletal: Chronic arthritic pain. Skin: Negative for rash. Neurological: As HPI recurrent syncope. No slurred speech or falls. Hematological: No significant bruising. Psychiatric/Behavioral: No depression or anxiety. PHYSICAL EXAM Vital Signs: BP 116/76 | Pulse (!) 47 | Temp 36.5 C (97.7 F) (Oral) | Ht 1.778 m (5' 10") | Wt 8 1.6 kg (180 lb) | SpO2 98% | BMI 25.83 kg/m GENERAL APPEARANCE: Alert, oriented, cooperative, no [...] ALT, CHOL, TRIG, HDL, LDLEX, GLUF, TSH ECG: Last Echo: 02/27/2020 Normal left ventricular size and function EF 60%. Mild degenerative changes in the aortic a nd mitral valves. Normal right ventricular size and function. Last Stress test: Last Cath: Last US carotid: Holter 03/15/2020 Reviewed predominantly sinus rhythm. Average heart rate was 64 bpm, min HR was 46 bpm, occa sional PVC total burden of 2.55%. ASSESSMENT: Patient is 70 y.o. with 1. Hypertension mostly controlled. 2. Occasional premature ventricular contractions. 3. Recurrent syncopal episodes in the view of nausea and while eating. 4. Sinus bradycardia probably secondary to atenolol. 5. Dyslipidemia on statin. Recommendations: Patient denies any typical anginal symptoms. His symptoms are always with nausea or while eating. This could be vasovagal used symptom. I discussed with the patient further monitor ing with a longer event monitor for a month. Will report any further symptoms. Patient at the last episode he experienced similar symptoms however he did his slowdown man euvers and no loss of consciousness happened. 1. Instructed patient to monitor his blood pressure at home. Will bring his blood pressure machine for an office check. 2. Decrease atenolol to 25 mg po q day. 3. Continue with losartan 100 mg po q day. 4. Will report any change in symptoms. Thank you Dr. Cordova for allowing the chance to participate in the care of this patient. *This report has been prepared using a [...] | | | | | [place] [address] | | | | | | [phone] | | | | | | | [...] [place] | | | | | | [address] | | | | | | | | +--------+ + + + + + +------+--------+ + + | Name | Type | Priori | Associated Diagnoses | Order Schedule | | | | ty | | | + +------+--------+ + + | Event monitor - 4 | ECG | Routin | Vasovagal syncope | 1 Occurrences | | week | | e | Essential | starting 04/13/2020 | | | | | hypertension | until 04/13/2021 | + +------+--------+ + + documented as of this encounter Visit Diagnoses + + | Diagnosis | + + | Essential hypertension - Primary Unspecified essential hypertension | + + | Vasovagal syncope Syncope and collapse | + + documented in this encounter
--- OUTSIDE RECORDS SUMMARY | ~2020-06-26 | XMS | Clinical Summary ---
Demographics + + + | Address | [address] | | | [place] [address] | + + + | Home Phone | | + + + | Preferred Language | Unknown | + + + | Marital Status | | + + + | Cheondoism Affiliation | Unknown | + + + | Race | Unknown | + + + | Ethnic Group | Other Race | + + + Author + + + | Author | [facility] | + + + | Organization | [facility] | + + + | Address | Unknown | + + + | Phone | Unavailable | + + + Care Team Providers + +------+ + | Care Sustainment Logistics Analyst Name | Role | Phone | + +------+ + PCP | Unavailable | + +------+ + Source Comments ROJELIO is fully live on both [facility] and [facility] Allergies Not on File Medications [...] | [place] | | for | | [place], | | | | [place] | | all | | [place] [address] | | | | | | dates | | | | + +--------+ +--------+ + +------+ | MODA [employer] | MODA | [phone] | | [phone] | [address] | [address] | | | [address] | | [phone] | [phone] | | | | [place] | | esent | | [place], | | | | [place] | | | | [place] [address] | | + +--------+ +--------+ + +------+ + +--------+ +--------+ + + | Guarantor Name | Accoun | Relation to | Date | Phone | Billing Address | | | t Type | Patient | of | | | | | | | | | | + +--------+ +--------+ + + | Thomas Escobar | Person | Self | [birth year] | [address] | | | al/Fam | | 2 | [phone] | [place] [address] | | | norma | | | 4 (Home) | | + +--------+ +--------+ + +"
--- OUTSIDE RECORDS SUMMARY | ~2020-06-26 | XMS | Encounter Summary ---
Demographics + + + | Address | [address] | | | [place] [address] | + + + | Home Phone | | + + + | Preferred Language | Unknown | + + + | Marital Status | | + + + | Tenriism Affiliation | Unknown | + + + | Race | Unknown | + + + | Ethnic Group | Unknown | + + + Author + + + | Author | [facility] | | | and [place] | + + + | Organization | [facility] | | | and [place] | + + + | Address | Unknown | + + + | Phone | Unavailable | + + + Support + + + + + | Name | Relationship | Address | Phone | + + + + + | Mark Escobar | [place] | [address] | | | | | [place] | | | | | [address] | | + + + + + Care Team Providers + +------+ + | Care Finger Cobbler Name | Role | Phone | + +------+ + | Maria C Cordova MD | PCP | | + +------+ + Reason for Visit +--------+ + | Reason | Comments | +--------+ + | Other | Implant Record | +--------+ + Encounter Details +--------+ + + + + | Date | Type | Department | Care Team | Description | +--------+ + + + + | 06/21/ | Documentati | [facility] | Franko Savage, | Other (Implant | | 2009 | on | CARDIOLOGY [place] | MD [address] | Record) | | | | [address] | [place], | | | | | [place], [place] | [place] [address] | | | | | [address] | [phone] | | | | | [phone] | | | +--------+ + + + [...] + documented as of this encounter Progress Gabby Beltran V - 06/21/2010 11:59 PM PDTImplant Record documented in this encounter Plan of Treatment +--------+ + + + + | Date | Type | Specialty | Care Team | Description | +--------+ + + + + | 08/09/ | Office | Cardiology | Joseph Claire | | | 2019 | Visit | | [address] | | | | | | [address] | | | | | | [place] [address] | | | | | | [phone] | | | | | | | [...] [place] | | | | | | [address] | | | | | | | | +--------+ + + + + documented as of this encounter Visit Diagnoses Not on filedocumented in this encounter"
--- OUTSIDE RECORDS SUMMARY | ~2020-06-26 | XMS | Encounter Summary ---
Demographics + + + | Address | [address] | | | [place] [address] | + + + | Home Phone | | + + + | Preferred Language | Unknown | + + + | Marital Status | | + + + | Yazidism Affiliation | Unknown | + + + | Race | Unknown | + + + | Ethnic Group | Unknown | + + + Author + + + | Author | [facility] | | | and [place] | + + + | Organization | [facility] | | | and [place] | + + + | Address | Unknown | + + + | Phone | Unavailable | + + + Support + + + + + | Name | Relationship | Address | Phone | + + + + + | Mark Escobar | [place] | [address] | | | | | [place] | | | | | [address] | | + + + + + Care Team Providers + +------+ + | Care Doors Prefitter Name | Role | Phone | + +------+ + | Tello Rodarte MD | PCP | | + +------+ + Encounter Details +--------+ + + + + | Date | Type | Department | Care Team | Description | +--------+ + + + + | 06/22/ | Orders Only | [facility] | Provider, | | | 2019 | | SYSTEM GENERIC OP | [address] | | | | | [address] | [address] | | | | | [address] [place], [place] | [place] [address] | | | | | [address] | | | | | | [phone] | | | +--------+ + + + [...] [address] | | | | | | [place] [address] | | | | | | [phone] | | | | | | | [...] [place] | | | | | | [address] | | | | | | | | +--------+ + + + + documented as of this encounter Visit Diagnoses Not on filedocumented in this encounter"
--- OUTSIDE RECORDS SUMMARY | ~2020-06-26 | XMS | Encounter Summary ---
Demographics + + + | Address | [address] | | | [place] [address] | + + + | Home Phone | | + + + | Preferred Language | Unknown | + + + | Marital Status | | + + + | Mosque Affiliation | Unknown | + + + | Race | Unknown | + + + | Ethnic Group | Unknown | + + + Author + + + | Author | [facility] | | | and [place] | + + + | Organization | [facility] | | | and [place] | + + + | Address | Unknown | + + + | Phone | Unavailable | + + + Support + + + + + | Name | Relationship | Address | Phone | + + + + + | Mark Escobar | [place] | [address] | | | | | [place] | | | | | [address] | | + + + + + Care Team Providers + +------+ + | Care Pharmacy Intern Name | Role | Phone | + [...] + + | 05/10/ | Documentati | [facility] | Linda Delarosa Eliza, | Other (urgent | | 2020 | on | CARDIOLOGY [place] | Technologist | report) | | | | [address] | | | | | | [place] | | | | | | [address] | | | | | | [phone] | | | +--------+ + + + [...] encounter Progress Notes Linda Delarosa, Technologist - 05/10/2020 8:06 AM PDTReceived urgent report 05/10/20 Pt had a urgent report 05/08/20 at 12:07 59 BPM 87 s after low activity for possible Pause 3 .4 s > 3 s 30 day monitor was placed 04/22/20 Medication: None Called PT and he said he felt funny and had shortness of breath Will continue to monitor Please see attachment Associated attestation - Trevor Godinez MD - 05/10/2020 8:28 AM PDTWill emil mascorro.documented in this encounter Plan of Treatment +--------+ [...] | | | | | [place] [address] | | | | | | [phone] | | | | | | | [...] [place] | | | | | | [address] | | | | | | | | +--------+ + + + + documented as of this encounter Visit Diagnoses Not on filedocumented in this encounter"
--- OUTSIDE RECORDS SUMMARY | ~2020-06-26 | XMS | Encounter Summary ---
Demographics + + + | Address | [address] | | | [place] [address] | + + + | Home Phone | | + + + | Preferred Language | Unknown | + + + | Marital Status | | + + + | Shinto Affiliation | Unknown | + + + | Race | Unknown | + + + | Ethnic Group | Unknown | + + + Author + + + | Author | [facility] | | | and [place] | + + + | Organization | [facility] | | | and [place] | + + + | Address | Unknown | + + + | Phone | Unavailable | + + + Support + + + + + | Name | Relationship | Address | Phone | + + + + + | Mark Escobar | [place] | [address] | | | | | [place] | | | | | [address] | | + + + + + Care Team Providers + +------+ + | Care Cruise Director Name | Role | Phone | + +------+ + | Tello Rodarte MD | PCP | | + +------+ + Encounter Details +--------+ + + + + | Date | Type | Department | Care Team | Description | +--------+ + + + + | 04/17/ | Abstract | [facility] | Geovani Hendrickson MD | | | 2016 | | NEUROSURGERY [address] | | | | | [address] | [place] [address] | | | | | [place] | [phone] | | | | | [address] | | | | | | [phone] | | | +--------+ + + + [...] | | | | | [place] [address] | | | | | | [phone] | | | | | | | [...] [place] | | | | | | [address] | | | | | | | | +--------+ + + + + documented as of this encounter Visit Diagnoses Not on filedocumented in this encounter"
--- OUTSIDE RECORDS SUMMARY | ~2020-06-26 | XMS | Encounter Summary ---
Demographics + + + | Address | [address] | | | [place] [address] | + + + | Home Phone | | + + + | Preferred Language | Unknown | + + + | Marital Status | | + + + | Jew Affiliation | Unknown | + + + | Race | Unknown | + + + | Ethnic Group | Unknown | + + + Author + + + | Author | [facility] | | | and [place] | + + + | Organization | [facility] | | | and [place] | + + + | Address | Unknown | + + + | Phone | Unavailable | + + + Support + + + + + | Name | Relationship | Address | Phone | + + + + + | Mark Escobar | [place] | [address] | | | | | [place] | | | | | [address] | | + + + + + Care Team Providers + +------+ + | Care Infrastructure Developer Name | Role | Phone | + +------+ + | Maria C Cordova MD | PCP | | + +------+ + Encounter Details +--------+ + + + + | Date | Type | Department | Care Team | Description | +--------+ + + + + | 06/15/ | Orders Only | [facility] EP | Joseph Claire | AV heart block | | 2020 | | CARDIOLOGY [place] | [address] | (Primary Dx) | | | | [address] | [address] | | | | | [place], [place] | [place] [address] | | | | | [address] | [phone] | | | | | [phone] | | | +--------+ + + + [...] | | | | | [place] [address] | | | | | | [phone] | | | | | | | | +--------+ + + + + | 08/09/ | Procedure | Cardiology | | | | 2019 | visit | | | | +--------+ + + + + | 10/19/ | Office | Cardiology | Trevor Godinez, | | | 2019 | Visit | | [address] | | | | | | [address] [place], [place] | | | | | | [address] | | | | | | | | +--------+ + + + + documented as of this encounter Visit Diagnoses + + | Diagnosis | + + | 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
--- OUTSIDE RECORDS SUMMARY | ~2020-06-26 | XMS | Encounter Summary ---
Demographics + + + | Address | [address] | | | [place] [address] | + + + | Home Phone | | + + + | Preferred Language | Unknown | + + + | Marital Status | | + + + | Holiness Affiliation | Unknown | + + + | Race | Unknown | + + + | Ethnic Group | Unknown | + + + Author + + + | Author | [facility] | | | and [place] | + + + | Organization | [facility] | | | and [place] | + + + | Address | Unknown | + + + | Phone | Unavailable | + + + Support + + + + + | Name | Relationship | Address | Phone | + + + + + | Mark Escobar | HANY | [address] | | | | | [place] | | | | | [address] | | + + + + + Care Team Providers + +------+ + | 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 Name | Role | Phone [...] DR JOHNSON | | | | | [place] | | [place] | | | | | NEW/RPLCMT | | [address] Phone: | | | | | PRM PM | | [phone] | | | | | W/TRANSV | | Fax: | | | | | ELTRD | | [phone] | | | | | ATRIAL&VENT | | | | | | | CV EP PPM | | | | | | | SYSTEM | | | | | | | IMPLANT | | | +--------+--------+ + + + + Encounter Details +--------+---------+ + + + | Date | Type | Department | Care Team | Description | +--------+---------+ + + + | 06/21/ | Surgery | [facility] | Franko Reina, | CV EP PPM SYSTEM | | 2019 | | [facility] | MD [address] | IMPLANT | | | | LAB [address] | [place], | | | | | [facility] [place] | [place] [address] | | | | | [address] | [phone] | | | | | [phone] | | | +--------+---------+ + + + [...] + + + | Blood Pressure | 155/81 | 06/21/2020 2:01 PM | | | | | PDT | | + + + + + | Pulse | 60 | 06/21/2020 2:01 PM | | | | | PDT | | + + + + + | Temperature | 36.6 C (97.8 F) | 06/21/2020 2:01 PM | | | | | PDT | | + + + + + | Respiratory Rate | 12 | 06/21/2020 2:01 PM | | | | | PDT | | + + + + + | Oxygen Saturation | 96% | 06/21/2020 2:01 PM | | | | | PDT | [...] might be dif ferent from the original. [facility] Electrophysiology Discharge Summary Patient: Obinna Escobar : [...] Information: Follow up: Franko Reina MD [address] [facility] [address] In 1 week For wound re-check - you may text Dr Reina a photo of the op site if you have no wound heal ing concerns Franko Reina MD [address] [place] [facility] [address] In 6 weeks Pacemaker reprogramming and optimization in 6 to 8 weeks - needs to be done in [place] off ice Discharge Medications New Medications Details [...] mouth as needed for Erectile Dysfunction. aka: PRETTYLIS Discontinued Medications atenolol 25 mg tablet aka: [...] pacemaker [facility]. [facility]. You [...] usage. Your appointments will be at the [facility] in [place] across from the [facility]. The address is [address] [place] [address]. The office is located on the [address]. This appointment should already be scheduled for you, but if not, please call [phone] to schedule your appointment. [facility] [...] appointment in approximately 7-10 days with t Nurse or Nurse Practitioner. FOR ALL INCISIONS [...] ask to speak with the nurse at . There are certain signs of infection to [...] show your ID card to security per sonnel before going through the metal detector. If you have any questions about your pacemaker once you are at home, please call the office at [phone]. documented in this encounter Medications at Time of Discharge + + + +---------+ + + | Medication | Sig | Dispensed | Refills | Start | End Date | | | | | | Date | | + + + +---------+ + + | acetaminophen | Take 2 tablets by | 15 | 11 | /10/01 | | | (TYLENOL) 325 mg | [...] might be dif ferent from the original. [facility] PATIENT NAME: Obinna Escobar : 1950: AGE: [...] then IR will sign off Cardiac Pacemaker Check I'm Here: FINAL SETTINGS FOR THE DEVICE: Mode for [...] today. Site is CDI no evidence of hematoma or infe ction [...] No pleural effusion. No acute osseous abnormality. *Lyjmb-ro-pvhphwou left pneumothorax, mildly increased as compared to [...] into the left chest and a 10 [place] pigtail chest tube is placed over the [...] Osiris Johnson PA-C Vascular and Interventional Radiology ade Zarate ARNP - 06/22/2020 7:11 AM PDT [facility] PATIENT NAME: Obinna Escobar : 1950: AGE: 70 y.o. ADMISSION DATE: 06/21/2020 Hospital Day # 0 Date of Service: 06/22/2020 Principal Hospital Problem: <principal problem not specified> Code Status: Full Code PRIMARY CARE: Maria C Cordova MD ELECTROPHYSIOLOGY HOSPITAL FOLLOW UP Events since last note: Mr. Escobar is POD 1 s/p implantation of a [employer] DC PPM w/ the RV lead [...] signs of erythema, swelling, bruising,oozing or hematoma. [place] pham well adhered and intact. His device check was WNL last night with rep robertoming for optimization completed by the rep, and tele this morning shows APVP with narr ow appearing QRS at a rate of 60 bpm. Post-op instructions relative to the device were tiffanyi cathryn discussed with the patient. Questions asked and [...] insertion site: as above. Signed by: JENNIFER Sliva 06/22/2020, 8:07 AM PDT Associated attestation - [...] using a His bundle lead if possible. [employer] device. Curry Jonnathan Donohue ed, MD [...] back from the airport in [facility], he stopped to have lunch while [...] some mild tiredness and fatigue. 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 Past medical history, SH, FH, [...] Acceptable Pain Level Outcome: Met lan of [place] - Cruz Forbes RN - 06/23/2020 6:29 [...] of shift chart check complete. lan of [place] - Penelope Waddell RN - 06/22/2020 10:48 [...] Franko Reina MD - 06/21/2020 10:20 PM [facility] OPERATIVE REPORT FRANKO REINA MD Patient: OBINNA ESCOBAR Admitting: FRANKO REINA MR #: [id number] LOC: PT TYPE: Adm Date: 06/21/2020 : [...] guidewires were placed into the vessel. An 8-[place] sheath was placed in to the subclavian vein, and through that, a [employer] His bundle sheath was advanced into the right atrium. Through that, a [employer] model 7842, serial #[id number] His b undle lead was placed through [...] milliamps. R waves were 7.3 millivolts. A 6-[place] sheath was placed into the subclavian vein, and through that, a [employer] c model 7841, serial #[id number] lead was placed into the high anterior aspect of the right atr ium and screwed into position. The final pacing threshold was 0.7 volts at 0.4 milliseconds with an impedance of 579 ohms and a current of 1.3 milliamps. P waves were 3.6 millivolts. The leads were attached to a [employer] Accolade MRI compatible pacemaker (model L33 1, serial #[id number]). That device was placed into the pocket [...] 06/21/2020 22:20:28 Transcribed on 06/21/2020 23:07:45 by vn job# [id number] Confirmation #: [id number] cc: SEKOU GODINEZ MD lan of Care [...] mg/day. Continue other th erapy. lan of Care - Samantha Plaza RN - 06/21/2020 6:02 [...] on xray and current plan. lan of [facility] - Patricia Murray ARNP - 06/21/2020 2:56 PM PDTPatient seen on 3 OP s/p [employer] DC PPM w/ Dr Reina w/ RV lead in the His bundle position. Uneventful immediate post-op course. Mr. Escobar has just returned from CXR. Some initial discomfort described primarily as localiz ed tightness abut the device insertion site, awaiting receipt of PO Tylenol. Incision line i s CDI with no signs of swelling, erythema, oozing or hematoma development. [place] pham CDI. D evice check renetta be [...] this time with anticipated discharge later today pendlizabeth khan achievement of discharge criteria, bedside device interrogation [...] | | | | | | [place] | | | | | | [place] [address] | | | | | | [phone] | | | | | | | [...] [place] | | | | | | [id number] | | | | | | | [...] IMAGING | | Report Signed by: Kam Milaln, Rohit Sign Date/Time: 06/23/2020 | | | [...] Procedure Note | + + | Richard, [id number] - 06/23/2020 9:32 AM PDT | | [...] Final Report Signed by: Kam Millan, Rohit | | Sign Date/Time: 06/23/2020 9:28 AM [...] Procedure Note | + + | Richard, [id number] - 06/23/2020 7:59 AM PDT | | [...] Final Report Signed by: Kam Millan, Rohit | | Sign Date/Time: 06/23/2020 7:55 AM [...] Procedure Note | + + | Richard, [id number] - 06/22/2020 2:59 PM PDT | | [...] Procedure Note | + + | Richard, [id number] - 06/22/2020 11:18 AM PDT | | [...] + + | Performing | Address | City/State[facility] | Phone Number | | Organization | [...] | | | planned to go [facility] 1 pneumothorax resolves and hopefully | [...] into the left chest and a 10 [place] pigtail chest | | | tube is [...] Procedure Note | + + | Richard, [id number] - 06/22/2020 9:45 AM PDT | | [...] into the left chest and a 10 [place] pigtail chest | | tube is placed [...] Performed At | + + + | *Iifut-ob-cqvhdjsb left pneumothorax, mildly increased as compared | [...] Procedure Note | + + | Richard, [id number] - 06/22/2020 7:54 AM PDT | | [...] | | | | IMPRESSION: | | *Eigyh-hh-pbctkows left pneumothorax, mildly increased as compared to [...] Procedure Note | + + | Richard, [id number] - 06/21/2020 6:54 PM PDT | | [...] | | | Report Signed by: Kam Lacy, Carlos Sign Date/Time: 06/21/2020 | | | 3:53 [...] Procedure Note | + + | Richard, [id number] - 06/21/2020 3:56 PM PDT | | [...] | | | | | performed at [facility] | | | | | | [address];[place] | | | | | | [address] | | | | + + + + + + + + | Specimen | + + | Blood | + + + + + + + | Performing | Address | City/State/Zipcode | Phone Number | | Organization | | | | + + + + + | [facility] | [address] | [place] [address] | [phone] | + + + + + CBC [...] | | | Absolute | performed at [facility];[address] | [address] | LABORATORY | | | | [address];[place] | | | | | | [address] | | | | + + + + + + + + | Specimen | + + | Blood | + + + + + + + | Performing | Address | City/State/Zipcode | Phone Number | | Organization | | | | + + + + + | [facility] | [address] | [place] [address] | [phone] | + + + + + documented [...] 20 4:19 | | | | | 06/21/20 at 1445, For 1 dose | | [...] | | | | | dose on Sun06/21/20 at 1445, Give | | | | [...] | | +---+---+ + +-------+ +--------+---+---+ | lidocaine 1% injection ONCE | Given | 06/21/20 | 80 mLs | | | | PRN, Starting Sun06/21/20 at | | 20 12:29 | | | | | 1229, Intra-op | | PM PDT | | | | + +-------+ +--------+---+---+ +---+---+ | | | +---+---+ + +-------+ +--------+---+---+ | losartan (COZAAR) tablet 100 mg | Given | 06/22/20 | 100 mg | | | | 100 mg, Oral, NIGHTLY, First | | 20 9:33 | | | | | dose on e 06/22/20 at 2045 | | PM PDT | | | | + +-------+ +--------+---+---+ + +---+ | | | + +---+ | melatonin tablet 3 mg 3 mg, | | | Oral, NIGHTLY PRN, Insomnia, | | | Starting Sun06/21/20 at 1938, | | | Recovery/Phase I [...]
[~2020-06-26 20:52] MED LIST: ASPIR-LOW81 MG PO; ATENOLOL50 MG PO; COZAAR50 MG PO; DOXAZOSIN MESYLA2 MG PO; IBUPROFEN600 MG PO; IMITREX50 MG PO; LEVOTHROID50 MCG PO; LIPITOR40 MG PO; MAPAP325 MG PO; OXYCODON-ACETA1 EAC2 PO; PRILOSEC20 MG PO; WELLBUTRIN SR150 MG PO
[2020-06-26] MEDS ORDERED: METOPROLOL SUCC50 MG PO (21:00)
--- NOTE | 2020-06-27 14:49 | EKG ---
[facility] [address] [facility] [place], [place] [address] Signed Normal sinus rhythm Right bundle branch block When compared with ECG of 21-JAN-2019 08:49, Right bundle branch block is now present Confirmed by AARON SHAW DO ([id number]) on 06/27/2020 2:49:36 PM Electronically Signed By: AARON SHAW DO 06/27/20 1449 PATIENT NAME: OBINNA ADAN MEEK Electrocardiogram DATE OF : 54 PHYSICIAN: AARON SHAW DO REPORT #: [id number] REPORT IS CONFIDENTIAL AND NOT TO BE RELEASED WITHOUT AUTHORIZATION
== END 2020-06-27 00:46 | disposition home or self-care (01) ==
LOC: ED 20:52
DX: R07.9 Chest pain, unspecified (principal); I10 Essential (primary) hypertension; Z79.899 Other long term (current) drug therapy
CPT/HCPCS: 71045; 80053; 83735; 84484; 85025; 93005; 93010; 99285-25

== ENCOUNTER 2021-05-28 09:39 | Emergency (ER) | payer MEDICARE, OTHER ==
[~2021-05-28] VITALS: Ht 175.3 cm; Wt 86.2 kg
[~2021-05-28 09:39] MED LIST changes: +METOPROLOL SUCC50 MG PO
[2021-05-28] MEDS ORDERED: PANTOPRAZOLE SO40 MG PO (09:47)
[2021-05-28] MEDS ORDERED: INDAPAMIDE1.25 MG PO (09:48)
[2021-05-28] MEDS ORDERED: AMLODIPINE BESY10 MG PO (09:48)
== END 2021-05-28 10:26 | disposition home or self-care (01) ==
LOC: ED 09:39
DX: S83.92XA Sprain of unspecified site of left knee, initial encounter (principal); W01.198A Fall on same level from slipping, tripping and stumbling with subsequent striking against other object, initial encounter; I10 Essential (primary) hypertension; Z79.899 Other long term (current) drug therapy; Z79.82 Long term (current) use of aspirin
CPT/HCPCS: 73560; 99283-25

== ENCOUNTER 2024-11-14 23:02 | Emergency (ER) | payer MEDICARE, OTHER ==
[~2024-11-14] VITALS: Ht 175.3 cm; Wt 91.2 kg
[~2024-11-14 23:02] MED LIST changes: +AMLODIPINE BESY10 MG PO; +INDAPAMIDE1.25 MG PO; +PANTOPRAZOLE SO40 MG PO
[2024-11-14] MEDS ORDERED: CYCLOBENZAPRINE5 MG (23:14)
[2024-11-14] MEDS ORDERED: ATORVASTATIN CA40 MG (23:14)
[2024-11-14] MEDS ORDERED: FINASTERIDE5 MG (23:15)
[2024-11-14] MEDS ORDERED: TAMSULOSIN HCL0.4 MG (23:15)
[2024-11-15] MEDS ORDERED: BENZONATATE100 MG PO (00:13)
[2024-11-15] MEDS ORDERED: ALBUTEROL SULFATE 8 GM HOME.PACK INH ONE ×2 (00:14→00:15)
[2024-11-15] MEDS ORDERED: methylPREDNISolone 4 MG HOME.PACK PO ONE ×2 (00:15)
[2024-11-15] MEDS ORDERED: INHALER, ASSIST DEVICES 1 EACH SPACER MISC ONE (00:15)
[2024-11-15 00:31] VITALS: BP 113/80
== END 2024-11-15 00:32 | disposition home or self-care (01) ==
LOC: ED 23:02
DX: J20.8 Acute bronchitis due to other specified organisms (principal); I10 Essential (primary) hypertension; E89.0 Postprocedural hypothyroidism; Z79.890 Hormone replacement therapy; Z79.82 Long term (current) use of aspirin; Z79.899 Other long term (current) drug therapy
CPT/HCPCS: 94640; 94664; 99283